=== PATIENT | female | born 1940 | race Caucasian/White ===

== ENCOUNTER 2018-06-16 09:45 | Outpatient (RCR) | payer MEDICARE, OTHER, SELFPAY ==
--- NOTE | 2018-04-30 15:38 | PT.OIE ---
Current Diagnoses Urgency of urination (04/30/18) Provider Visit Care Team Role Provider Type MUKUL Solis Attending Provider Advanced Hot Dip Plater Primary Care Provider Specialty: Family Practice Address: [address] [place] [address], [id number] Email: [email or web address] Physical Therapy Initial Evaluation PT-OP-A Visit Information Start: 04/30/18 14:52 Freq: Status: Active Protocol: Document 04/30/18 14:52 [facility] (Rec: 04/30/18 14:53 [facility] [email or web address]) Out-Patient Physical Therapy Visit Information Visit Information Visit Type Initial Evaluation Visit Note 77 year old female referred for urinary urge incontinence Visit Start Time 14:30 Visit Stop Time 15:15 Total Visit Minutes 45 Visit Number 1 Evaluation Information Evaluation Date 04/30/18 PT-OP-B Current Condition Start: 04/30/18 14:52 Freq: Status: Active Protocol: Document 04/30/18 15:26 [facility] (Rec: 04/30/18 15:38 [facility] [email or web address]) Current Condition History of Current Condition Onset Date 2 years Current Complaints urinary urge incontinence History of Current Condition 77 year old female with two year history of urinary urge intontinence. She has a past medical history of breast cancer 2006 with bilateral masectomy, thyroid surgery, lymphedema, neck pain, neuropathy Treatment Goals Patient/Caregiver Goals To eliminate urinary incontinence Current Functional Impairments (Reported) Functional Limitations- Other increased self care and skin breakdown due to urinary incontinence PT-OP-I Pelvic Floor Start: 04/30/18 14:52 Freq: Status: Active Protocol: Document 04/30/18 15:26 [facility] (Rec: 04/30/18 15:38 [facility] [email or web address]) Pelvic Floor Assessment Urine Pelvic Floor Surgery No Urinary Symptoms Urge Sensation Leakage Size Large Leakage Cause Urge Leaks Per Day 5 xms per day Voiding Frequency 10 times per day Nocturia 2 times per night Pelvic Clock Pelvic Clock 12-3 Atrophy Pelvic Clock 3-6 Atrophy Pelvic Clock 6-9 Atrophy Pelvic Clock 9-12 Atrophy SEMG (uV) Baseline 2.0 10 Second Contraction 4.3 Recruitment Pattern Fair Relaxation Fair Holding Fair Stability of Hold Poor/Slow SEMG Stability of Rest Fair Contraction Ability Voluntary Contraction Weak Voluntary Relaxation Weak Manual Muscle Testing Left 2 Manual Muscle Testing Right 2 Manual Muscle Testing Anterior 2 Manual Muscle Testing Posterior 2 Muscle Endurance (Seconds) 4 PT-OP-Q Treatments Start: 04/30/18 14:52 Freq: Status: Active Protocol: Document 04/30/18 15:26 [facility] (Rec: 04/30/18 15:38 [facility] [email or web address]) Therapeutic Exercises Supine Exercises 1 Supine Exercise Name pelvic floor long holds Side bilateral Reps/Minutes 10 reps holding 10 seconds Self-Care/Home Management Treatment Education Patient Education Home Exercise Program Other Education urge deference technique, bladder retraining PT-OP-T Assessment and Plan Start: 04/30/18 14:52 Freq: Status: Active Protocol: Document 04/30/18 15:26 [facility] (Rec: 04/30/18 15:38 [facility] [email or web address]) Physical Therapy Assessment Rehab Potential Rehabilitation Potential Good Evaluation Complexity Number of Personal Factors/Comorbidities 0 Number of Body Systems Impaired 1-2 Clinical Presentation at Evaluation Stable Impairments Impairments Activity Tolerance Strength Tone Other Impairments urinary incontinence Goals Three Impairment decreased endurance of the pelvic floor (currently 3-4 second hold time) Numerologist Goal (LTG) Improve endurance of the pelvic floor to 10 second hold time in supine Two Impairment urinary urge incontinence Short Term Goal (STG) Jamee is educated on the urge deference technique to help urinary urgency and decrease incontinence STG Duration 5 weeks One Impairment pelvic floor weakness 2/5 MMT all parts of the levator ani Numerologist Goal (LTG) Improve strength of the pelvic floor muscles to 3/5 or better on MMT for improved support of the bladder LTG Duration 8 weeks Assessment Summary Assessment Jamee presents to physical therapy today with signs and symptoms consistent with urinary urge incontinence. With examination today Jamee is able to facilitate all parts of her levator ani however she is weak 2/5 on MMT . She also has more difficulty recruiting the anterior and lateral moody of the levator ani. Her endurance for holding time of contractions is also limited to 2-3 seconds. She was given a bladder diary today to keep track of how often she voids, educated on bladder irritants, and we initiated the urge deference technique to help retrain her bladder. EMG biofeedback was initiated to begin strengthening of her pelvic floor and she tolerated this well. She is a good candidate for PT. Physical Therapy Plan Frequency and Duration Frequency of Treatment 1x/Week Duration of Treatment 8 weeks Plan of Care Start Date 04/30/18 Plan of Care End Date 06/25/18 Therapeutic Interventions Therapeutic Interventions Home Exercise Program Neuromuscular Re-education Patient/Caregiver Education Therapeutic Exercises Modalities Biofeedback
--- NOTE | 2018-04-30 15:39 | PT.OPPOC ---
Current Diagnoses Urgency of urination (04/30/18) Provider Visit Care Team Role Provider Type MUKUL Solis Attending Provider Advanced Mold Stamper Primary Care Provider Specialty: Family Practice Address: [address] [place] [address], [id number] Email: [email or web address] Plan Of Care PT-OP-T Assessment and Plan Start: 04/30/18 14:52 Freq: Status: Active Protocol: Document 04/30/18 15:26 [facility] (Rec: 04/30/18 15:38 [facility] [email or web address]) Physical Therapy Assessment Rehab Potential Rehabilitation Potential Good Evaluation Complexity Number of Personal Factors/Comorbidities 0 Number of Body Systems Impaired 1-2 Clinical Presentation at Evaluation Stable Impairments Impairments Activity Tolerance Strength Tone Other Impairments urinary incontinence Goals Three Impairment decreased endurance of the pelvic floor (currently 3-4 second hold time) Specimen Transporter Goal (LTG) Improve endurance of the pelvic floor to 10 second hold time in supine Two Impairment urinary urge incontinence Short Term Goal (STG) Jamee is educated on the urge deference technique to help urinary urgency and decrease incontinence STG Duration 5 weeks One Impairment pelvic floor weakness 2/5 MMT all parts of the levator ani Specimen Transporter Goal (LTG) Improve strength of the pelvic floor muscles to 3/5 or better on MMT for improved support of the bladder LTG Duration 8 weeks Assessment Summary Assessment Jamee presents to physical therapy today with signs and symptoms consistent with urinary urge incontinence. With examination today Jamee is able to facilitate all parts of her levator ani however she is weak 2/5 on MMT She also has more difficulty recruiting the anterior and lateral moody of the levator ani. Her endurance for holding time of contractions is also limited to 2-3 seconds. She was given a bladder diary today to keep track of how often she voids, educated on bladder irritants, and we initiated the urge deference technique to help retrain her bladder. EMG biofeedback was initiated to begin strengthening of her pelvic floor and she tolerated this well. She is a good candidate for PT. Physical Therapy Plan Frequency and Duration Frequency of Treatment 1x/Week Duration of Treatment 8 weeks Plan of Care Start Date 04/30/18 Plan of Care End Date 06/25/18 Therapeutic Interventions Therapeutic Interventions Home Exercise Program Neuromuscular Re-education Patient/Caregiver Education Therapeutic Exercises Modalities Biofeedback Plan of Care Dates Plan of Care Start Date 04/30/18 Plan of Care End Date 06/25/18 Please Sign and Return: I have reviewed this Plan of Care and certify that the skilled therapy services above are required to meet the patient?s needs. Physician Signature Date Printed Name and Credentials Clinical Instructor Signature Printed Name and Credentials
--- NOTE | 2018-05-07 11:49 | PT.OTN ---
Current Diagnoses Urgency of urination (05/07/18) Physical Therapy Treatment Note PT-OP-A Visit Information Start: 04/30/18 14:52 Freq: Status: Active Protocol: Document 05/07/18 11:32 [facility] (Rec: 05/07/18 11:49 [facility] [email or web address]) Out-Patient Physical Therapy Visit Information Visit Information Visit Type Treatment Note Visit Start Time 09:00 Visit Stop Time 09:45 Total Visit Minutes 45 Visit Number 2 Evaluation Information Evaluation Date 04/30/18 PT-OP-B Current Condition Start: 04/30/18 14:52 Freq: Status: Active Protocol: Document 04/30/18 15:26 [facility] (Rec: 04/30/18 15:38 [facility] [email or web address]) Current Condition History of Current Condition Onset Date 2 years Current Complaints urinary urge incontinence History of Current Condition 77 year old female with two year history of urinary urge intontinence. She has a past medical history of breast cancer 2006 with bilateral masectomy, thyroid surgery, lymphedema, neck pain, neuropathy Treatment Goals Patient/Caregiver Goals To eliminate urinary incontinence Current Functional Impairments (Reported) Functional Limitations- Other increased self care and skin breakdown due to urinary incontinence PT-OP-C Subjective Start: 04/30/18 14:52 Freq: Status: Active Protocol: Document 05/07/18 11:32 [facility] (Rec: 05/07/18 11:49 [facility] [email or web address]) OP-PT Subjective Patient Comments Patient Comments Jamee reports she has been trying the urge technique, working on her exercises, and she brings in her bladder diary. She reports she can tell her symptoms are a bit better already PT-OP-I Pelvic Floor Start: 04/30/18 14:52 Freq: Status: Active Protocol: Document 04/30/18 15:26 [facility] (Rec: 04/30/18 15:38 [facility] [email or web address]) Pelvic Floor Assessment Urine Pelvic Floor Surgery No Urinary Symptoms Urge Sensation Leakage Size Large Leakage Cause Urge Leaks Per Day 5 xms per day Voiding Frequency 10 times per day Nocturia 2 times per night Pelvic Clock Pelvic Clock 12-3 Atrophy Pelvic Clock 3-6 Atrophy Pelvic Clock 6-9 Atrophy Pelvic Clock 9-12 Atrophy SEMG (uV) Baseline 2.0 10 Second Contraction 4.3 Recruitment Pattern Fair Relaxation Fair Holding Fair Stability of Hold Poor/Slow SEMG Stability of Rest Fair Contraction Ability Voluntary Contraction Weak Voluntary Relaxation Weak Manual Muscle Testing Left 2 Manual Muscle Testing Right 2 Manual Muscle Testing Anterior 2 Manual Muscle Testing Posterior 2 Muscle Endurance (Seconds) 4 PT-OP-Q Treatments Start: 04/30/18 14:52 Freq: Status: Active Protocol: Document 05/07/18 11:32 [facility] (Rec: 05/07/18 11:49 [facility] [email or web address]) Therapeutic Exercises Supine Exercises 3 Supine Exercise Name diaphragmatic breathing 2 Supine Exercise Name ball squeeze with pelvic floor contraction Reps/Minutes x 10 1 Supine Exercise Name pelvic floor long holds Side bilateral Reps/Minutes 10 reps holding 10 seconds Prone Exercises 1 Prone Exercise Name prone on elbows stretch for the abdominal fascia Other Exercises 1 Other Exercise Name quadraped pelvic tilts Neuro Re-Education Treatment Other Activities 1 Details neuro muscular awareness of transverse abdominal and pelvic floor Comments worked on breathing with pelvic floor facilitation and neuromuscualr awareness of TA and pelvic floor tightnening on the exhale. PT-OP-T Assessment and Plan Start: 04/30/18 14:52 Freq: Status: Active Protocol: Document 05/07/18 11:32 [facility] (Rec: 05/07/18 11:49 [facility] [email or web address]) Physical Therapy Assessment Assessment Summary Assessment Improved resting tone of the pelvic floor to baseline today . Long holds are difficult for Jamee to perform. We worked a lot today on the breath with her pelvic floor contractions as it is difficult for her to coordinate her breath. Physical Therapy Plan Frequency and Duration Frequency of Treatment 1x/Week Duration of Treatment 8 weeks Plan of Care Start Date 04/30/18 Plan of Care End Date 06/25/18 Therapeutic Interventions Therapeutic Interventions Home Exercise Program Neuromuscular Re-education Patient/Caregiver Education Therapeutic Exercises Modalities Biofeedback Next Visit Focus/Plan Next Note Type Treatment Note Next Visit Plan EMG biofeedback pelvic floor facilitation and begin working eccentric control and lateral hip stabilization
--- NOTE | 2018-05-12 15:37 | PT.OTN ---
Current Diagnoses Urgency of urination (05/12/18) Physical Therapy Treatment Note PT-OP-A Visit Information Start: 04/30/18 14:52 Freq: Status: Active Protocol: Document 05/12/18 10:30 AMB (Rec: 05/12/18 10:40 AMB [id number]) Out-Patient Physical Therapy Visit Information Visit Information Visit Type Treatment Note Visit Start Time 10:30 Visit Stop Time 11:15 Total Visit Minutes 45 Visit Number 3 PT-OP-B Current Condition Start: 04/30/18 14:52 Freq: Status: Active Protocol: Document 04/30/18 15:26 [facility] (Rec: 04/30/18 15:38 [facility] [email or web address]) Current Condition History of Current Condition Onset Date 2 years Current Complaints urinary urge incontinence History of Current Condition 77 year old female with two year history of urinary urge intontinence. She has a past medical history of breast cancer 2006 with bilateral masectomy, thyroid surgery, lymphedema, neck pain, neuropathy Treatment Goals Patient/Caregiver Goals To eliminate urinary incontinence Current Functional Impairments (Reported) Functional Limitations- Other increased self care and skin breakdown due to urinary incontinence PT-OP-C Subjective Start: 04/30/18 14:52 Freq: Status: Active Protocol: Document 05/12/18 10:30 AMB (Rec: 05/12/18 15:37 AMB [email or web address]) OP-PT Subjective Patient Comments Patient Comments Pt reports one night without nocturia. PT-OP-I Pelvic Floor Start: 04/30/18 14:52 Freq: Status: Active Protocol: Document 04/30/18 15:26 [facility] (Rec: 04/30/18 15:38 [facility] [email or web address]) Pelvic Floor Assessment Urine Pelvic Floor Surgery No Urinary Symptoms Urge Sensation Leakage Size Large Leakage Cause Urge Leaks Per Day 5 xms per day Voiding Frequency 10 times per day Nocturia 2 times per night Pelvic Clock Pelvic Clock 12-3 Atrophy Pelvic Clock 3-6 Atrophy Pelvic Clock 6-9 Atrophy Pelvic Clock 9-12 Atrophy SEMG (uV) Baseline 2.0 10 Second Contraction 4.3 Recruitment Pattern Fair Relaxation Fair Holding Fair Stability of Hold Poor/Slow SEMG Stability of Rest Fair Contraction Ability Voluntary Contraction Weak Voluntary Relaxation Weak Manual Muscle Testing Left 2 Manual Muscle Testing Right 2 Manual Muscle Testing Anterior 2 Manual Muscle Testing Posterior 2 Muscle Endurance (Seconds) 4 PT-OP-Q Treatments Start: 04/30/18 14:52 Freq: Status: Active Protocol: Document 05/12/18 10:30 AMB (Rec: 05/12/18 15:32 AMB [email or web address]) Therapeutic Exercises Supine Exercises 5 Supine Exercise Name hip ER with pelvic floor Resistance #3 t band Reps/Minutes [id number] 2 Supine Exercise Name ball squeeze with pelvic floor contraction Reps/Minutes x 10 1 Supine Exercise Name pelvic floor long holds Side bilateral Reps/Minutes 10 reps holding 10 seconds Comments with slow controlled relax Neuro Re-Education Treatment Other Activities 1 Details neuro muscular awareness of transverse abdominal and pelvic floor Comments worked on breathing with pelvic floor facilitation and neuromuscualr awareness of TA and pelvic floor tightnening on the exhale. Breathing while holding contraction. PT-OP-T Assessment and Plan Start: 04/30/18 14:52 Freq: Status: Active Protocol: Document 05/12/18 10:30 AMB (Rec: 05/12/18 15:32 AMB [email or web address]) Physical Therapy Assessment Assessment Summary Assessment Urgency sx are improving, pt reports one night with no nocturia. 10 seconds hold remain challenging. Physical Therapy Plan Next Visit Focus/Plan Next Note Type Treatment Note Next Visit Plan EMG biofeedback pelvic floor facilitation and begin working eccentric control and lateral hip stabilization
--- NOTE | 2018-05-20 15:44 | PT.OTN ---
Current Diagnoses Urgency of urination (05/19/18) Physical Therapy Treatment Note PT-OP-A Visit Information Start: 04/30/18 14:52 Freq: Status: Active Protocol: Document 05/19/18 15:15 [facility] (Rec: 05/20/18 15:44 [facility] [id number]) Out-Patient Physical Therapy Visit Information Visit Information Visit Type Treatment Note Visit Start Time 15:15 Visit Stop Time 16:00 Total Visit Minutes 45 Visit Number 4 Evaluation Information Evaluation Date 04/30/18 PT-OP-B Current Condition Start: 04/30/18 14:52 Freq: Status: Active Protocol: Document 04/30/18 15:26 [facility] (Rec: 04/30/18 15:38 [facility] [email or web address]) Current Condition History of Current Condition Onset Date 2 years Current Complaints urinary urge incontinence History of Current Condition 77 year old female with two year history of urinary urge intontinence. She has a past medical history of breast cancer 2006 with bilateral masectomy, thyroid surgery, lymphedema, neck pain, neuropathy Treatment Goals Patient/Caregiver Goals To eliminate urinary incontinence Current Functional Impairments (Reported) Functional Limitations- Other increased self care and skin breakdown due to urinary incontinence PT-OP-C Subjective Start: 04/30/18 14:52 Freq: Status: Active Protocol: Document 05/19/18 15:15 [facility] (Rec: 05/20/18 15:44 [facility] [id number]) OP-PT Subjective Patient Comments Patient Comments Doing much better with symptoms and leakage is much decreased. She reports only waking one time per night to void and did go one night without waking. It is still difficult to hold the contraction 10 seconds PT-OP-I Pelvic Floor Start: 04/30/18 14:52 Freq: Status: Active Protocol: Document 04/30/18 15:26 [facility] (Rec: 04/30/18 15:38 [facility] [email or web address]) Pelvic Floor Assessment Urine Pelvic Floor Surgery No Urinary Symptoms Urge Sensation Leakage Size Large Leakage Cause Urge Leaks Per Day 5 xms per day Voiding Frequency 10 times per day Nocturia 2 times per night Pelvic Clock Pelvic Clock 12-3 Atrophy Pelvic Clock 3-6 Atrophy Pelvic Clock 6-9 Atrophy Pelvic Clock 9-12 Atrophy SEMG (uV) Baseline 2.0 10 Second Contraction 4.3 Recruitment Pattern Fair Relaxation Fair Holding Fair Stability of Hold Poor/Slow SEMG Stability of Rest Fair Contraction Ability Voluntary Contraction Weak Voluntary Relaxation Weak Manual Muscle Testing Left 2 Manual Muscle Testing Right 2 Manual Muscle Testing Anterior 2 Manual Muscle Testing Posterior 2 Muscle Endurance (Seconds) 4 PT-OP-Q Treatments Start: 04/30/18 14:52 Freq: Status: Active Protocol: Document 05/19/18 15:15 [facility] (Rec: 05/20/18 15:44 [facility] [id number]) Therapeutic Exercises Supine Exercises 5 Supine Exercise Name hip ER with pelvic floor Resistance #3 t band Reps/Minutes [id number] 3 Supine Exercise Name diaphragmatic breathing 2 Supine Exercise Name ball squeeze with pelvic floor contraction Reps/Minutes x 10 1 Supine Exercise Name pelvic floor long holds Side bilateral Reps/Minutes 10 reps holding 10 seconds Comments with slow controlled relax Other Exercises 2 Other Exercise Name quadruped TA facilitation 1 Other Exercise Name quadraped pelvic tilts Neuro Re-Education Treatment Other Activities 2 Details NMES Comments began NMES to help facilitate longer pelvic floor contractions 1 Details neuro muscular awareness of transverse abdominal and pelvic floor Comments worked on breathing with pelvic floor facilitation and neuromuscualr awareness of TA and pelvic floor tightnening on the exhale. Breathing while holding contraction. PT-OP-T Assessment and Plan Start: 04/30/18 14:52 Freq: Status: Active Protocol: Document 05/19/18 15:15 [facility] (Rec: 05/20/18 15:44 [facility] [id number]) Physical Therapy Assessment Assessment Summary Assessment good improvements with decreased urgency and leakage. It is still difficult to coordinate breathing with pelvic floor activation and holding for 10 seconds. I did try NMES today and this did help some so we will try this again next visit Physical Therapy Plan Frequency and Duration Frequency of Treatment 1x/Week Duration of Treatment 8 weeks Plan of Care Start Date 04/30/18 Plan of Care End Date 06/25/18 Therapeutic Interventions Therapeutic Interventions Home Exercise Program Neuromuscular Re-education Patient/Caregiver Education Therapeutic Exercises Modalities Biofeedback Next Visit Focus/Plan Next Note Type Treatment Note Next Visit Plan trial of NMES again next visit and progress strengthening as tolerated
--- NOTE | 2018-06-03 13:18 | PT.OTN ---
Current Diagnoses Urgency of urination (06/03/18) Physical Therapy Treatment Note PT-OP-A Visit Information Start: 04/30/18 14:52 Freq: Status: Active Protocol: Document 06/03/18 13:09 [facility] (Rec: 06/03/18 13:18 [facility] [email or web address]) Out-Patient Physical Therapy Visit Information Visit Information Visit Type Treatment Note Visit Start Time 12:15 Visit Stop Time 13:00 Total Visit Minutes 45 Visit Number 5 Evaluation Information Evaluation Date 04/30/18 PT-OP-B Current Condition Start: 04/30/18 14:52 Freq: Status: Active Protocol: Document 04/30/18 15:26 [facility] (Rec: 04/30/18 15:38 [facility] [email or web address]) Current Condition History of Current Condition Onset Date 2 years Current Complaints urinary urge incontinence History of Current Condition 77 year old female with two year history of urinary urge intontinence. She has a past medical history of breast cancer 2006 with bilateral masectomy, thyroid surgery, lymphedema, neck pain, neuropathy Treatment Goals Patient/Caregiver Goals To eliminate urinary incontinence Current Functional Impairments (Reported) Functional Limitations- Other increased self care and skin breakdown due to urinary incontinence PT-OP-C Subjective Start: 04/30/18 14:52 Freq: Status: Active Protocol: Document 06/03/18 13:09 [facility] (Rec: 06/03/18 13:18 [facility] [email or web address]) OP-PT Subjective Patient Comments Patient Comments Jamee reports leakage is decreased overall. She is not wearing any pads, She has a stronger stream and is sleeping about 6 hours before she has to get up to void. Jamee also reports she has not started her estrogen yet and she does have some skin irritation from the electrode Patient Reported Progress Improving PT-OP-I Pelvic Floor Start: 04/30/18 14:52 Freq: Status: Active Protocol: Document 04/30/18 15:26 [facility] (Rec: 04/30/18 15:38 [facility] [email or web address]) Pelvic Floor Assessment Urine Pelvic Floor Surgery No Urinary Symptoms Urge Sensation Leakage Size Large Leakage Cause Urge Leaks Per Day 5 xms per day Voiding Frequency 10 times per day Nocturia 2 times per night Pelvic Clock Pelvic Clock 12-3 Atrophy Pelvic Clock 3-6 Atrophy Pelvic Clock 6-9 Atrophy Pelvic Clock 9-12 Atrophy SEMG (uV) Baseline 2.0 10 Second Contraction 4.3 Recruitment Pattern Fair Relaxation Fair Holding Fair Stability of Hold Poor/Slow SEMG Stability of Rest Fair Contraction Ability Voluntary Contraction Weak Voluntary Relaxation Weak Manual Muscle Testing Left 2 Manual Muscle Testing Right 2 Manual Muscle Testing Anterior 2 Manual Muscle Testing Posterior 2 Muscle Endurance (Seconds) 4 PT-OP-Q Treatments Start: 04/30/18 14:52 Freq: Status: Active Protocol: Document 06/03/18 13:09 [facility] (Rec: 06/03/18 13:18 [facility] [email or web address]) Therapeutic Exercises Supine Exercises 6 Supine Exercise Name quick pelvic floor contractions Reps/Minutes 2 seconds on 2 seconds off x 10 reps 4 Supine Exercise Name bridge with ball squeeze Reps/Minutes x 10 reps 5 Supine Exercise Name hip ER with pelvic floor Resistance #3 t band Reps/Minutes [id number] Supine Exercise Name diaphragmatic breathing 2 Supine Exercise Name ball squeeze with pelvic floor contraction Reps/Minutes x 10 1 Supine Exercise Name pelvic floor long holds Side bilateral Reps/Minutes 10 reps holding 5 seconds Comments with slow controlled relax Sidelying Exercises 1 Sidelying Exercise Name sidelying clam shells Reps/Minutes 3 x 10 reps Other Exercises 2 Other Exercise Name quadruped TA facilitation 1 Other Exercise Name quadraped pelvic tilts PT-OP-T Assessment and Plan Start: 04/30/18 14:52 Freq: Status: Active Protocol: Document 06/03/18 13:09 [facility] (Rec: 06/03/18 13:18 [facility] [email or web address]) Physical Therapy Assessment Assessment Summary Assessment I tried lowering long holds to 5 seconds as holding for 10 is still difficult for Jamee. We then increased her ball squeeze to 10 seconds. Jamee is doing well with decreased symptoms. It would be good to progress her towards more functional exercises next visit Physical Therapy Plan Frequency and Duration Frequency of Treatment 1x/Week Duration of Treatment 8 weeks Plan of Care Start Date 04/30/18 Plan of Care End Date 06/25/18 Therapeutic Interventions Therapeutic Interventions Home Exercise Program Neuromuscular Re-education Patient/Caregiver Education Therapeutic Exercises Modalities Biofeedback Next Visit Focus/Plan Next Note Type Treatment Note Next Visit Plan progress to sit-stand and standing pelvic floor contractions next visit
--- NOTE | 2018-06-16 11:51 | PT.OTN ---
Current Diagnoses Urgency of urination (06/16/18) Physical Therapy Treatment Note PT-OP-A Visit Information Start: 04/30/18 14:52 Freq: Status: Active Protocol: Document 06/16/18 11:20 [facility] (Rec: 06/16/18 11:51 [facility] [email or web address]) Out-Patient Physical Therapy Visit Information Visit Information Visit Type Treatment Note Visit Start Time 09:45 Visit Stop Time 10:30 Total Visit Minutes 45 Visit Number 6 Evaluation Information Evaluation Date 04/30/18 PT-OP-B Current Condition Start: 04/30/18 14:52 Freq: Status: Active Protocol: Document 04/30/18 15:26 [facility] (Rec: 04/30/18 15:38 [facility] [email or web address]) Current Condition History of Current Condition Onset Date 2 years Current Complaints urinary urge incontinence History of Current Condition 77 year old female with two year history of urinary urge intontinence. She has a past medical history of breast cancer 2006 with bilateral masectomy, thyroid surgery, lymphedema, neck pain, neuropathy Treatment Goals Patient/Caregiver Goals To eliminate urinary incontinence Current Functional Impairments (Reported) Functional Limitations- Other increased self care and skin breakdown due to urinary incontinence PT-OP-C Subjective Start: 04/30/18 14:52 Freq: Status: Active Protocol: Document 06/16/18 11:20 [facility] (Rec: 06/16/18 11:51 [facility] [email or web address]) OP-PT Subjective Patient Comments Patient Comments Jamee reports she is doing much better overall. She hasn' t had any leakage and has been getting 8 hours of sleep at night not waking to void. Patient Reported Progress Improving PT-OP-I Pelvic Floor Start: 04/30/18 14:52 Freq: Status: Active Protocol: Document 04/30/18 15:26 [facility] (Rec: 04/30/18 15:38 [facility] [email or web address]) Pelvic Floor Assessment Urine Pelvic Floor Surgery No Urinary Symptoms Urge Sensation Leakage Size Large Leakage Cause Urge Leaks Per Day 5 xms per day Voiding Frequency 10 times per day Nocturia 2 times per night Pelvic Clock Pelvic Clock 12-3 Atrophy Pelvic Clock 3-6 Atrophy Pelvic Clock 6-9 Atrophy Pelvic Clock 9-12 Atrophy SEMG (uV) Baseline 2.0 10 Second Contraction 4.3 Recruitment Pattern Fair Relaxation Fair Holding Fair Stability of Hold Poor/Slow SEMG Stability of Rest Fair Contraction Ability Voluntary Contraction Weak Voluntary Relaxation Weak Manual Muscle Testing Left 2 Manual Muscle Testing Right 2 Manual Muscle Testing Anterior 2 Manual Muscle Testing Posterior 2 Muscle Endurance (Seconds) 4 PT-OP-Q Treatments Start: 04/30/18 14:52 Freq: Status: Active Protocol: Document 06/16/18 11:20 [facility] (Rec: 06/16/18 11:51 [facility] [email or web address]) Therapeutic Exercises Supine Exercises 4 Supine Exercise Name bridge with ball squeeze Reps/Minutes x 10 reps 2 Supine Exercise Name ball squeeze with pelvic floor contraction Reps/Minutes x 10 1 Supine Exercise Name pelvic floor long holds Side bilateral Reps/Minutes 10 reps holding 5 seconds Comments with slow controlled relax Sidelying Exercises 1 Sidelying Exercise Name sidelying clam shells Reps/Minutes 3 x 10 reps Sitting Exercises 1 Sitting Exercise Name sit to stand with pelvic floor activitation Reps/Minutes x 10 Standing Exercises 1 Standing Exercise Name standing quick contractions Reps/Minutes x 10 Other Exercises 3 Other Exercise Name standing squats at counter top Reps/Minutes x 10 2 Other Exercise Name quadruped TA facilitation 1 Other Exercise Name quadraped pelvic tilts PT-OP-T Assessment and Plan Start: 04/30/18 14:52 Freq: Status: Active Protocol: Document 06/16/18 11:20 [facility] (Rec: 06/16/18 11:51 [facility] [email or web address]) Physical Therapy Assessment Goals Three Impairment decreased endurance of the pelvic floor (currently 3-4 second hold time) Short Term Goal (STG) GOAL MET 06/16/18 Senior Director Finance Goal (LTG) Improve endurance of the pelvic floor to 10 second hold time in supine Two Impairment urinary urge incontinence Short Term Goal (STG) Jamee is educated on the urge deference technique to help urinary urgency and decrease incontinence STG Duration 5 weeks [facility] Goal (LTG) GOAL MET 06/16/18 One Impairment pelvic floor weakness 2/5 MMT all parts of the levator ani Short Term Goal (STG) GOAL MET 06/16/18 [employer] Goal (LTG) Improve strength of the pelvic floor muscles to 3/5 or better on MMT for improved support of the bladder LTG Duration 8 weeks Assessment Summary Assessment Jamee is doing realy well with her home program for pelvic floor strengthening. Her symptoms of leakage are gone and she is not waking at night to void. At this point she will be discharged to a independent home program. Physical Therapy Plan Discharge Physical Therapy Discharge Reasons Goals Met Discharge Comments Jamee has met all established goals and will be dishcarged at this time.
== END 2018-06-17 12:06 ==
LOC: PHYS 09:45
PROVIDERS: PCP Internal Medicine; Visit Provider Internal Medicine
DX: R39.15 Urgency of urination (principal)
CPT/HCPCS: 97110; 97112; 97161; 97535

== ENCOUNTER → 2018-12-17 13:47 | Outpatient (CLI) | payer MEDICARE, OTHER, SELFPAY ==
--- NOTE | 2018-12-17 | DI.MRI.S_ITS ---
PROCEDURE: MR KNEE LT WO CON INDICATIONS: Unspecified injury of left lower leg TECHNIQUE: Noncontrast sagittal PD fast spin echo and T2 fast spin echo with fat saturation, sagittal 3-D FLASH with fat saturation; coronal T1 spin echo and PD fast spin echo with fat saturation, and axial PD fast spin echo with fat saturation through the knee. COMPARISON: [facility] [place], [place], XR KNEE ARTHRITIC SERIES LT, 12/10/2018, 15:26. FINDINGS: Image quality: Excellent. Menisci: The medial and lateral menisci demonstrate normal morphology. There is mild intrasubstance degeneration involving the posterior horn of the medial meniscus and the free edge of the body of the lateral meniscus. The meniscal root ligaments appear intact. Cruciate ligaments: The anterior and posterior cruciate ligaments appear intact. Medial structures: The medial collateral ligament appears intact. The semimembranosus tendon insertions and meniscocapsular junction appear intact. Visualized portions of the pes anserinus tendons appear normal. No abnormal bursal fluid. Lateral structures: The lateral collateral ligament, long and short heads of the biceps femoris tendon appear intact. The popliteus tendon appears normal. Iliotibial band appears normal. Anterior structures: The quadriceps and patellar tendons appear intact. Patellar alignment is normal. No femoral trochlear dysplasia or ventral trochlear prominence. No edema in the infrapatellar fat pad. Bones and cartilage: No bone marrow contusions or fractures. There is cartilage thinning and fibrillation in the medial and lateral femorotibial compartments, as well as the patellofemoral compartment, appears normal in thickness. Joint space: There is joint space narrowing and periarticular osteophytes. There is small to moderate knee joint fluid. A moderate-sized Valencia's cyst is noted. Normal appearing synovial plicae are incidentally noted. IMPRESSION: 1. Mild intrasubstance degeneration in medial and lateral menisci. No lilly meniscal tear. 2. Mild to moderate tricompartmental cartilage loss, coupled with joint space narrowing and periarticular osteophytes, most compatible with osteoarthritis. 3. Small to moderate knee joint effusion. 4. A moderate-sized Valencia's cyst. Dictated by: Mingo Castellon M.D. on 12/17/2018 at 14:58 Approved by: Mingo Castellon M.D. on 12/17/2018 at 17:49
== END ==
PROVIDERS: PCP Internal Medicine; Visit Provider Internal Medicine
DX: S89.92XA Unspecified injury of left lower leg, initial encounter (principal); M25.462 Effusion, left knee; M71.22 Synovial cyst of popliteal space [Baker], left knee
CPT/HCPCS: 73721

== ENCOUNTER 2019-06-23 09:00 | Outpatient (RCR) | payer MEDICARE, OTHER, SELFPAY ==
--- NOTE | 2019-06-18 16:13 | PT.OIE ---
Current Diagnoses Patellofemoral disorders, left knee (06/18/19) Sprain of other ligament of left ankle, subsequent encounter (06/18/19) Personal history of (healed) traumatic fracture (06/18/19) Visit Care Team Role Provider Type MUKUL Solis Attending Provider Advanced Steerer Primary Care Provider Referring Provider Specialty: [facility] Practice Address: [address] [place] [address], [id number] Email: [email or web address] Physical Therapy Initial Evaluation PT-OP-A Visit Information Start: 06/18/19 09:47 Freq: Status: Active Protocol: Document 06/18/19 09:50 [facility] (Rec: 06/18/19 14:30 [facility] [email or web address]) Out-Patient Physical Therapy Visit Information Visit Information Visit Type Initial Evaluation Visit Note Patient showed up at 9:00 due to scheduling miscommunication Visit Start Time 09:50 Visit Stop Time 10:37 Total Visit Minutes 47 Visit Number 1 Number of CEMENT CUTTER Visits 0 Evaluation Information Evaluation Date 06/18/19 PT-OP-B Current Condition Start: 06/18/19 09:47 Freq: Status: Active Protocol: Document 06/18/19 09:50 [facility] (Rec: 06/18/19 14:30 [facility] [email or web address]) Current Condition History of Current Condition Onset Date December, Current Complaints Pain in L ankle after fracture , pain in L knee after fall History of Current Condition Patient reports that in December, she fell while walking in the lawn at a concert. At that time, she felt she had done something to her ankle but didn't see the MD in a couple days. She reported she had an avulsion fracture in her ankle ( documents in paper chart) and was given a walking boot to wear. At the time of the fall, she also had bruising and swelling of the L knee and was unable to bend for a few days . She says she felt a deep pain under the knee cap. She stopped wearing the boot once she thought it was more of a hindrance that it was helping (after 2 weeks). She enjoys hiking and going up altitude but has pain in L ankle and L knee when walking downhill. She reports increased stiffness in the morning as well as walking down stairs. At rest, she can feel a minimal pain in L ankle and does not feel pain in L knee. She has begun to wear high ankle boots while hiking to help with ankle pain. She has gone to PT in the past for her R knee and would prefer to do as much as she can at home. Patient has a history of Fibromyalgia which she reports healing herself through an extensive program called The [facility] Protocol which was developed by Roger Cheema MD. 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 Prior Treatments and Tests Walking boot for ankle PT in past for R knee Treatment Goals Patient/Caregiver Goals Would like to be given exercises to do at home to decrease pain Prior Functional Status Baseline Function- ADL's Independent Baseline Function- Mobility Independent Baseline Function- Work/School Retired Baseline Function- Recreation/Hobbies Altitude hiker Enjoys going in to [place] Current Functional Impairments (Reported) Functional Limitations- Mobility/Gait Difficulty with squatting, standing for >1 hour, standing from sitting down >1 hour Functional Limitations- Recreation/ Unable to go hiking without Hobbies pain Personal Factors Other Personal Factors That May Effect Arthritis Therapy/Recovery Back Pain History of Breast Cancer Lymphedema Neuropathy History of Fibromyalgia Neck pain Thyroid Disorder PT-OP-C Subjective Start: 06/18/19 09:47 Freq: Status: Active Protocol: Document 06/18/19 09:50 [facility] (Rec: 06/18/19 14:30 EG [email or web address]) Patient Questionnaires Foot & Ankle Ability Measure- ADL and Sports FAAM-ADL Score 76 FAAM-ADL Impairment 1 to 19% Impaired (Score 67-83 ) Lower Extremity Functional Scale LEFS Score 44 LEFS Impairment 40 to 59% Impaired (Score 32- 47) OP-PT Pain Assessment Pain Assessment Grid Paper Pain Assessment Grid Completed Yes: 3 in L Ankle PT-OP-G Mobility & Gait Start: 06/18/19 09:47 Freq: Status: Active Protocol: Document 06/18/19 09:50 [facility] (Rec: 06/18/19 14:30 EG [email or web address]) OP Mobility Evaluation Bed Mobility Rolling Independent Supine to and from Sit Independent PT-OP-J Posture/Palpation/Skin Start: 06/18/19 09:47 Freq: Status: Active Protocol: Document 06/18/19 09:50 [facility] (Rec: 06/18/19 14:30 EG [email or web address]) Palpation Assessment Location L Lateral Malleolus Palpation Location L lateral malleolus Palpation Findings Tenderness Palpation Details Inferior portion of L lateral malleolus tender PT-OP-K Range of Motion Start: 06/18/19 09:47 Freq: Status: Active Protocol: Document 06/18/19 09:50 EG (Rec: 06/18/19 14:30 EG [email or web address]) Knee Goniometric Range of Motion Knee Right Knee ROM WFL Yes Patient Position Supine Flexion Active (degrees) 125 Extension Active (degrees) 2 Left Knee ROM WFL Yes Patient Position Supine Flexion Active (degrees) 130 Extension Active (degrees) 2 Ankle and Foot Goniometric Range of Motion Ankle and Foot Right Active Ankle/Foot ROM WFL Yes Testing Position Sitting Dorsiflexion with Knee Flexed 0 Plantarflexion 50 Left Active Ankle/Foot ROM WFL Yes Testing Position Sitting Dorsiflexion with Knee Flexed 0 Plantarflexion 40 PT-OP-M Strength Start: 06/18/19 09:47 Freq: Status: Active Protocol: Document 06/18/19 09:50 EG (Rec: 06/18/19 14:30 EG [email or web address]) Hip Strength Hip Manual Muscle Testing Right Extension (S1) 3+ Fair+ Abduction 4- Good- Left Extension (S1) 3+ Fair+ Abduction 3+ Fair+ Knee Strength Knee Manual Muscle Testing Right Flexion (S2) 4 Good Extension (L3) 4 Good Comments Slight pain with R knee extension Left Flexion (S2) 4 Good Extension (L3) 4 Good Comments L knee Extension: strong and painful deep to knee cap Ankle/Foot Strength Ankle and Foot Manual Muscle Testing Right Dorsiflexion (L4) 4+ Good+ Plantarflexion (S1) 4+ Good+ Inversion 4+ Good+ Eversion (S1) 4+ Good+ Left Dorsiflexion (L4) 4 Good Plantarflexion (S1) 4 Good Inversion 4 Good Eversion (S1) 4 Good Comments Pain in lateral ankle with dorsiflexion and inversion 20 single leg heel raise with decreased heel height PT-OP-Q Treatments Start: 06/18/19 09:47 Freq: Status: Active Protocol: Document 06/18/19 09:50 [facility] (Rec: 06/18/19 14:30 EG [email or web address]) Therapeutic Exercises Supine Exercises 6 Supine Exercise Name Bridge Reps/Minutes 10x Comments Given as HEP - cue to squeeze glutes together 4 Supine Exercise Name SAQ Side left Reps/Minutes 15x each side Comments given as HEP Sidelying Exercises 1 Sidelying Exercise Name Clams Side bilateral Reps/Minutes 15x Comments given as HEP PT-OP-T Assessment and Plan Start: 06/18/19 09:47 Freq: Status: Active Protocol: Document 06/18/19 09:50 [facility] (Rec: 06/18/19 14:30 EG [email or web address]) Physical Therapy Assessment Rehab Potential Rehabilitation Potential Good Evaluation Complexity Number of Personal Factors/Comorbidities 3 or More Number of Body Systems Impaired 4 or More Clinical Presentation at Evaluation Stable Impairments Impairments Activity Tolerance,Balance, Functional Activities, Functional Mobility,Gait,Pain, ROM,Soft Tissue Mobility, Strength Other Concerns Barriers to Rehabilitation Patient concerned about coming due to Coronovirus Patient unsure if PT will help her Goals Four Impairment HEP [employer] Goal (LTG) Patient will be knowledgable of HEP with performormance of correct mechanics and form with exercises focused on overall hip strengthening and ankle stability in 6 weeks. LTG Duration 6 weeks Three Impairment Strength [employer] Goal (LTG) Patient will increase strength of hip abduction to 4+/5 in 6 weeks. LTG Duration 6 weeks Two Impairment Activity Tolerance Short Term Goal (STG) Patient will be able to stand for >1 hour in 3 weeks with no increase in ankle pain. STG Duration 3 weeks [employer] Goal (LTG) Patient will be able to go on >3 hour hike on uneven surfaces with 20% decline without feeling ankle pain >2/ 10 in 6 weeks. LTG Duration 6 weeks One Impairment LEFS score Long-Term Goal (LTG) Patient will report <19% impairment in LEFS in 6 weeks. LTG Duration 6 weeks Assessment Summary Assessment Patient is an otherwise healthy and active 78 year old female who reports to PT due to instability and pain in L ankle 6 months post L ankle avulsion fracture as well as L knee pain. Patient's main complaint is lingering pain in the ankle and walking downhill when hiking. Patient will benefit from ankle stabilization exercises, gait training, foot intrinsic strengthening, hip strengthening, as well as neuromuscular control during balance movements to help the patient return to hiking on uneven surfaces pain free and with stability. Physical Therapy Plan Frequency and Duration Frequency of Treatment 2x/Week Duration of Treatment 6 weeks Plan of Care Start Date 06/18/19 Plan of Care End Date 07/30/19 Therapeutic Interventions Therapeutic Interventions Balance Training,Gait Training ,Home Exercise Program,Joint Mobilizations,Manual Therapy, Neuromuscular Re-education, Patient/Caregiver Education, Self-Care/Home Management,Soft Tissue Mobilization,Taping, Therapeutic Activities, Therapeutic Exercises Modalities Cold Pack/Ice Massage,Electric Stimulation,Hot Packs, Ultrasound Next Visit Focus/Plan Next Note Type Treatment Note Next Visit Plan Assess HEP, Give ankle exercises, assess balance. IDelaney DPT, supervised all treatment performed by, and agreed with the plan of care, as performed by Zulema Ly, TRACIE.
--- NOTE | 2019-06-18 16:15 | PT.OPPOC ---
Physical, Occupational & Speech Therapy At [facility] Current Diagnoses Patellofemoral disorders, left knee (06/18/19) Sprain of other ligament of left ankle, subsequent encounter (06/18/19) Personal history of (healed) traumatic fracture (06/18/19) Visit Care Team Role Provider Type MUKUL Solis Attending Provider Advanced Plywood And Veneer Repairer Primary Care Provider Referring Provider Specialty: Family Practice Address: [address] [place] [address] [place], [address] Email: [email or web address] Plan Of Care PT-OP-T Assessment and Plan Start: 06/18/19 09:47 Freq: Status: Active Protocol: Document 06/18/19 09:50 EG (Rec: 06/18/19 14:30 EG [email or web address]) Physical Therapy Assessment Rehab Potential Rehabilitation Potential Good Evaluation Complexity Number of Personal Factors/Comorbidities 3 or More Number of Body Systems Impaired 4 or More Clinical Presentation at Evaluation Stable Impairments Impairments Activity Tolerance,Balance, Functional Activities, Functional Mobility,Gait,Pain, ROM,Soft Tissue Mobility, Strength Other Concerns Barriers to Rehabilitation Patient concerned about coming due to Coronovirus Patient unsure if PT will help her Goals Four Impairment HEP Software Quality Engineer Goal (LTG) Patient will be knowledgable of HEP with performormance of correct mechanics and form with exercises focused on overall hip strengthening and ankle stability in 6 weeks. LTG Duration 6 weeks Three Impairment Strength Software Quality Engineer Goal (LTG) Patient will increase strength of hip abduction to 4+/5 in 6 weeks. LTG Duration 6 weeks Two Impairment Activity Tolerance Short Term Goal (STG) Patient will be able to stand for >1 hour in 3 weeks with no increase in ankle pain. STG Duration 3 weeks Software Quality Engineer Goal (LTG) Patient will be able to go on >3 hour hike on uneven surfaces with 20% decline without feeling ankle pain >2/ 10 in 6 weeks. LTG Duration 6 weeks One Impairment LEFS score Penitentiary Goal (LTG) Patient will report <19% impairment in LEFS in 6 weeks. LTG Duration 6 weeks Assessment Summary Assessment Patient is an otherwise healthy and active 78 year old female who reports to PT due to instability and pain in L ankle 6 months post L ankle avulsion fracture as well as L knee pain. Patient's main complaint is lingering pain in the ankle and walking downhill when hiking. Patient will benefit from ankle stabilization exercises, gait training, foot intrinsic strengthening, hip strengthening, as well as neuromuscular control during balance movements to help the patient return to hiking on uneven surfaces pain free and with stability. Physical Therapy Plan Frequency and Duration Frequency of Treatment 2x/Week Duration of Treatment 6 weeks Plan of Care Start Date 06/18/19 Plan of Care End Date 07/30/19 Therapeutic Interventions Therapeutic Interventions Balance Training,Gait Training ,Home Exercise Program,Joint Mobilizations,Manual Therapy, Neuromuscular Re-education, Patient/Caregiver Education, Self-Care/Home Management,Soft Tissue Mobilization,Taping, Therapeutic Activities, Therapeutic Exercises Modalities Cold Pack/Ice Massage,Electric Stimulation,Hot Packs, Ultrasound Next Visit Focus/Plan Next Note Type Treatment Note Next Visit Plan Assess HEP, Give ankle exercises, assess balance. Plan of Care Dates Plan of Care Start Date 06/18/19 Plan of Care End Date 07/30/19 IDelaney DPT, supervised all treatment performed by, and agreed with the plan of care, as performed by Zulema Ly, TRACIE. Electronically Signed by: Delaney Mahoney, PT 06/18/19 3240 Please Sign and Return: I have reviewed this Plan of Care and certify that the skilled therapy services above are required to meet the patient?s needs. Physician Signature Date Printed Name and Credentials Clinical Instructor Signature Printed Name and Credentials
--- NOTE | 2019-06-21 09:43 | PT-OP ANOTE ---
Pt no showed appointment, called and left voicemail reminding of next scheduled appointment day and time.
--- NOTE | 2019-06-23 11:10 | PT.OTN ---
Current Diagnoses Patellofemoral disorders, left knee (06/23/19) Sprain of other ligament of left ankle, subsequent encounter (06/23/19) Personal history of (healed) traumatic fracture (06/23/19) Physical Therapy Treatment Note PT-OP-A Visit Information Start: 06/18/19 09:47 Freq: Status: Active Protocol: Document 06/23/19 09:07 EG (Rec: 06/23/19 10:58 EG [id number]) Out-Patient Physical Therapy Visit Information Visit Information Visit Type Discharge Summary Visit Start Time 09:07 Visit Stop Time 09:51 Total Visit Minutes 44 Visit Number 2 Number of THRESHING OPERATOR Visits 0 PT-OP-B Current Condition Start: 06/18/19 09:47 Freq: Status: Active Protocol: Document 06/18/19 09:50 EG (Rec: 06/18/19 14:30 EG [email or web address]) Current Condition History of Current Condition Onset Date December, Current Complaints Pain in L ankle after fracture , pain in L knee after fall History of Current Condition Patient reports that in December, she fell while walking in the lawn at a concert. At that time, she felt she had done something to her ankle but didn't see the MD in a couple days. She reported she had an avulsion fracture in her ankle ( documents in paper chart) and was given a walking boot to wear. At the time of the fall, she also had bruising and swelling of the L knee and was unable to bend for a few days . She says she felt a deep pain under the knee cap. She stopped wearing the boot once she thought it was more of a hindrance that it was helping (after 2 weeks). She enjoys hiking and going up altitude but has pain in L ankle and L knee when walking downhill. She reports increased stiffness in the morning as well as walking down stairs. At rest, she can feel a minimal pain in L ankle and does not feel pain in L knee. She has begun to wear high ankle boots while hiking to help with ankle pain. She has gone to PT in the past for her R knee and would prefer to do as much as she can at home. Patient has a history of Fibromyalgia which she reports healing herself through an extensive program called The Guaifenesin Protocol which was developed by Roger Cheema MD. 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 Prior Treatments and Tests Walking boot for ankle PT in past for R knee Treatment Goals Patient/Caregiver Goals Would like to be given exercises to do at home to decrease pain Prior Functional Status Baseline Function- ADL's Independent Baseline Function- Mobility Independent Baseline Function- Work/School Retired Baseline Function- Recreation/Hobbies Altitude hiker Enjoys going in to [place] Current Functional Impairments (Reported) Functional Limitations- Mobility/Gait Difficulty with squatting, standing for >1 hour, standing from sitting down >1 hour Functional Limitations- Recreation/ Unable to go hiking without Hobbies pain Personal Factors Other Personal Factors That May Effect Arthritis Therapy/Recovery Back Pain History of Breast Cancer Lymphedema Neuropathy History of Fibromyalgia Neck pain Thyroid Disorder PT-OP-C Subjective Start: 06/18/19 09:47 Freq: Status: Active Protocol: Document 06/23/19 09:07 EG (Rec: 06/23/19 10:58 EG [id number]) OP-PT Subjective Patient Comments Patient Comments Patient reports that she feels her ankle was surprisingly feeling better after last appointment but she would like this to be her last appointment because of the coronavirus. Her knee was not bothering her but she also has not done any downhill walking since then. She would like exercises to do at home. PT-OP-G Mobility & Gait Start: 06/18/19 09:47 Freq: Status: Active Protocol: Document 06/18/19 09:50 EG (Rec: 06/18/19 14:30 EG [email or web address]) OP Mobility Evaluation Bed Mobility Rolling Independent Supine to and from Sit Independent PT-OP-J Posture/Palpation/Skin Start: 06/18/19 09:47 Freq: Status: Active Protocol: Document 06/18/19 09:50 EG (Rec: 06/18/19 14:30 EG [email or web address]) Palpation Assessment Location L Lateral Malleolus Palpation Location L lateral malleolus Palpation Findings Tenderness Palpation Details Inferior portion of L lateral malleolus tender PT-OP-K Range of Motion Start: 06/18/19 09:47 Freq: Status: Active Protocol: Document 06/18/19 09:50 EG (Rec: 06/18/19 14:30 EG [email or web address]) Knee Goniometric Range of Motion Knee Right Knee ROM WFL Yes Patient Position Supine Flexion Active (degrees) 125 Extension Active (degrees) 2 Left Knee ROM WFL Yes Patient Position Supine Flexion Active (degrees) 130 Extension Active (degrees) 2 Ankle and Foot Goniometric Range of Motion Ankle and Foot Right Active Ankle/Foot ROM WFL Yes Testing Position Sitting Dorsiflexion with Knee Flexed 0 Plantarflexion 50 Left Active Ankle/Foot ROM WFL Yes Testing Position Sitting Dorsiflexion with Knee Flexed 0 Plantarflexion 40 PT-OP-M Strength Start: 06/18/19 09:47 Freq: Status: Active Protocol: Document 06/18/19 09:50 EG (Rec: 06/18/19 14:30 EG [email or web address]) Hip Strength Hip Manual Muscle Testing Right Extension (S1) 3+ Fair+ Abduction 4- Good- Left Extension (S1) 3+ Fair+ Abduction 3+ Fair+ Knee Strength Knee Manual Muscle Testing Right Flexion (S2) 4 Good Extension (L3) 4 Good Comments Slight pain with R knee extension Left Flexion (S2) 4 Good Extension (L3) 4 Good Comments L knee Extension: strong and painful deep to knee cap Ankle/Foot Strength Ankle and Foot Manual Muscle Testing Right Dorsiflexion (L4) 4+ Good+ Plantarflexion (S1) 4+ Good+ Inversion 4+ Good+ Eversion (S1) 4+ Good+ Left Dorsiflexion (L4) 4 Good Plantarflexion (S1) 4 Good Inversion 4 Good Eversion (S1) 4 Good Comments Pain in lateral ankle with dorsiflexion and inversion 20 single leg heel raise with decreased heel height PT-OP-Q Treatments Start: 06/18/19 09:47 Freq: Status: Active Protocol: Document 06/23/19 09:07 EG (Rec: 06/23/19 10:58 EG [id number]) Cardio Equipment Recumbent Elliptical (Biodex) Duration (Minutes) 5 Resistance 5 Therapeutic Exercises Sitting Exercises Towel Scrunch Sitting Exercise Name Towel Scrunch Side left Reps/Minutes 2 min Comments given for HEP 4-way ankle TB Sitting Exercise Name TB 4-way ankle Side left Resistance L2 Reps/Minutes 10x each way Comments given as HEP 1 Sitting Exercise Name Ankle ABC's Side left Comments HEP Standing Exercises Heel Raise Standing Exercise Name Heel Raise Side bilateral Reps/Minutes 10x Comments done on and off stairs - slightly more tension felt in ankle with stairs gastroc.Soleuys stretch Standing Exercise Name gastroc/soleus stretch Side bilateral Equipment Used MAIKEL Reps/Minutes 1 min hold Comments given for HEP - taught to do on stairs SLS on foam pad Standing Exercise Name SLS on foam pad Side left Equipment Used foam pad Reps/Minutes 1 min each side Comments given as HEP - used wall rail for support Balance on RockerBoard Standing Exercise Name Balance on Rocker Board Equipment Used rocker board in A/P and L positions Reps/Minutes 1 min Comments done EO and EC - given as HEP 1 Standing Exercise Name Rocker Board Side bilateral Reps/Minutes 10x A/P and 10x L Comments given as HEP PT-OP-T Assessment and Plan Start: 06/18/19 09:47 Freq: Status: Active Protocol: Document 06/23/19 09:07 EG (Rec: 06/23/19 10:58 EG [id number]) Physical Therapy Assessment Goals Four Impairment HEP Senior Talent Management Consultant Goal (LTG) Patient will be knowledgable of HEP with performormance of correct mechanics and form with exercises focused on overall hip strengthening and ankle stability in 6 weeks. LTG Duration MET Three Impairment Strength Senior Talent Management Consultant Goal (LTG) Patient will increase strength of hip abduction to 4+/5 in 6 weeks. LTG Duration 6 weeks Two Impairment Activity Tolerance Short Term Goal (STG) Patient will be able to stand for >1 hour in 3 weeks with no increase in ankle pain. STG Duration 3 weeks Senior Talent Management Consultant Goal (LTG) Patient will be able to go on >3 hour hike on uneven surfaces with 20% decline without feeling ankle pain >2/ 10 in 6 weeks. LTG Duration 6 weeks One Impairment LEFS score Correction Goal (LTG) Patient will report <19% impairment in LEFS in 6 weeks. LTG Duration 6 weeks Progress Towards Goals Progress Towards Goals Progressing Toward Goals Progress Comments Patient was able to learn HEP that will help with ankle mobility/stability. Strength has not improved due to short duration. patient has not been hiking, She has chosen to discharge due to the recent Coronavirus spread, Assessment Summary Assessment Patient has chosen to self- discharge at this time because she does not want to come to the hospital during the coronavirus. She was given a HEP for her ankle to work on ankle stability, mobility, and strength as well as foot intrinsic strength while at home. Mechanics and form for each exercise was discussed and performed. All questions were answered. Patient may call in a few months to continue with therapy if she does not see the improvement she wants in the next few months. Physical Therapy Plan Frequency and Duration Frequency of Treatment 2x/Week Duration of Treatment 6 weeks Plan of Care Start Date 06/18/19 Plan of Care End Date 07/30/19 Discharge Physical Therapy Discharge Reasons Patient Request Discharge Comments Patient would like to discharge because of the recent coronavirus spread. IDelaney DPT, supervised all treatment performed by, and agreed with the plan of care, as performed by Zulema Ly, TRACIE.
== END 2019-06-24 08:03 ==
LOC: PHYS 09:00
PROVIDERS: PCP Internal Medicine; Referring Provider Internal Medicine; Visit Provider Internal Medicine
DX: Z87.81 Personal history of (healed) traumatic fracture (principal); M22.2X2 Patellofemoral disorders, left knee; S93.492D Sprain of other ligament of left ankle, subsequent encounter
CPT/HCPCS: 97110; 97161

== ENCOUNTER → 2020-07-11 14:29 | Outpatient (CLI) | payer MEDICARE, SELFPAY ==
[2020-07-11 15:57] LABS: Cholesterol 192 mg/dL (140-199); HDL Cholesterol 54 mg/dL (40-60); LDL Cholesterol Calculated 99 mg/dL (<100); Triglycerides 195 mg/dL (35-150)
[2020-07-11 16:41] LABS: Free T3, Triiodothyronine Free 4.47 pg/mL (2.77-5.27); Free T4, Direct Thyroxine 1.34 ng/dL (0.78-2.19)
[2020-07-11 16:55] LABS: Thyroid Stimulating Hormone 0.953 uIU/mL (0.47-4.68)
== END ==
PROVIDERS: PCP Internal Medicine; Referring Provider Internal Medicine Endocrinology, Diabetes & Metabolism; Visit Provider Internal Medicine Endocrinology, Diabetes & Metabolism
DX: E03.8 Other specified hypothyroidism (principal); E78.5 Hyperlipidemia, unspecified
CPT/HCPCS: 36415; 80061; 84439; 84443; 84481

== ENCOUNTER 2021-03-22 09:00 | Outpatient (RCR) | payer MEDICARE, SELFPAY ==
--- NOTE | 2021-01-24 09:04 | PT.OPPOC ---
Physical, Occupational & Speech Therapy At [facility] Current Diagnoses Dorsalgia, unspecified (01/24/21) Abnormal posture (01/24/21) Weakness (01/24/21) Visit Care Team Role Provider Type MUKUL Solis Attending Provider Advanced Environmental Protection Forester Primary Care Provider Referring Provider Specialty: Family Practice Address: [address] [place] [address], [place], [place], [facility] Email: Plan Of Care PT-OP-T Assessment and Plan Start: 01/24/21 08:05 Freq: Status: Active Protocol: Document 01/24/21 09:04 ADRIANA (Rec: 01/24/21 10:23 ADRIANA [id number]) Physical Therapy Assessment Rehab Potential Rehabilitation Potential Good Evaluation Complexity Number of Personal Factors/Comorbidities 1-2 Number of Body Systems Impaired 3 Clinical Presentation at Evaluation Evolving Impairments Impairments Functional Mobility,Pain, Posture,Strength Goals unable to do floor transfers Impairment unable to do floor transfers Fpc Goal (LTG) Patient will be able to do floor transfers without pain independently as measure of improved function LTG Duration 04/24/21 function-limiting pain Impairment Oswestry disability Index SCore 32% Short Term Goal (STG) Improve RAVINDER score to no greater than 20% STG Duration 03/14/21 Fpc Goal (LTG) Improve RAVINDER score to no greater than 10% as measure of improved activity tolerance and function in the home and community LTG Duration 04/24/21 weakness Impairment no HEP to address weakness, muscle tightness, poor core stab Short Term Goal (STG) Patient to be independent and compliant with HEP for purposes of strength, flexibility, and core stabilization STG Duration 02/22/21 Sharepoint Manager Goal (LTG) Patient to demonstrate muscle strength at least 4+/5, flexibility WNL, and good ability to activate core at rest and functionally with movement for improved activity tolerance LTG Duration 04/24/21 functional mobility Impairment step-to pattern on stairs, painful gait Sharepoint Manager Goal (LTG) Patient will be able to ambulate on stairs with step- to pattern and take usual walks without an increase in pain LTG Duration 04/24/20 Assessment Summary Assessment Patient presents to PT with function-limiting pain in low back and left LE which appears due to muscle imbalances, habitual postures and movements, scoliosis, and arthritis in addition to recent move with increased lifting. Feel she would benefit from PT for establishing therapeutic exercise program, therapeutic activities, patient education regarding posture and body mechanics, modalities and manual therapy as indicated for pain. Physical Therapy Plan Frequency and Duration Frequency of Treatment 2x/Week Duration of Treatment 12 weeks Plan of Care Start Date 01/24/21 Plan of Care End Date 04/24/21 Therapeutic Interventions Therapeutic Interventions Aquatic Therapy,Home Exercise Program,Manual Therapy, Neuromuscular Re-education, Patient/Caregiver Education, Self-Care/Home Management,Soft Tissue Mobilization,Taping, Therapeutic Activities, Therapeutic Exercises Modalities Cold Pack/Ice Massage,Electric Stimulation,Hot Packs, Iontophoresis,Ultrasound Next Visit Focus/Plan Next Note Type Treatment Note Next Visit Plan Review HEP, patient instruction regarding neutral posture and body mechanics, progress HEP as indicated. Manual therapy and modalities as needed. Plan of Care Dates Plan of Care Start Date 01/24/21 Plan of Care End Date 04/24/21 Electronically Signed by: Cari Lopez, PT 01/28/21 0855 Please Sign and Return: I have reviewed this Plan of Care and certify that the skilled therapy services above are required to meet the patient?s needs. Physician Signature Date Printed Name and Credentials Clinical Instructor Signature Printed Name and Credentials
--- NOTE | 2021-01-24 09:04 | PT.OIE ---
Current Diagnoses Dorsalgia, unspecified (01/24/21) Abnormal posture (01/24/21) Weakness (01/24/21) Visit Care Team Role Provider Type MUKUL Solis Attending Provider Advanced Site Technician Primary Care Provider Referring Provider Specialty: Family Practice Address: [address] [place] [address], [facility] [place], [address] Email: [email or web address] Physical Therapy Initial Evaluation PT-OP-A Visit Information Start: 01/24/21 08:05 Freq: Status: Active Protocol: Document 01/24/21 09:04 SAK (Rec: 01/24/21 10:23 SAK [id number]) Out-Patient Physical Therapy Visit Information Visit Information Visit Type Initial Evaluation Visit Start Time 09:05 Visit Stop Time 10:00 Total Visit Minutes 55 Visit Number 1 Evaluation Information Evaluation Date 01/24/21 Precautions Precautions history of bilateral mastectomies, bilateral UE and trunk lymphedema PT-OP-B Current Condition Start: 01/24/21 08:05 Freq: Status: Active Protocol: Document 01/24/21 09:04 SAK (Rec: 01/24/21 10:23 SAK [id number]) Current Condition History of Current Condition Onset Date 6 wks Current Complaints low back and posterior left sided pain, weakness History of Current Condition Long history of sciatica 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 No pain since then until 6 weeks ago. Going to chiropractor, ( Makenna Steele) increased pain after treatment; has been adjusting mid thoracic area. . Occasionally takes Advil, uses CBD or Lidocane patch, but wearing SI belt most helpful. Usually for exercise 1-2 miles with hills. Better with sitting. Moved into a new house end of October, probably lifted way too many thing. New floor is polished concrete. Plans to get new shoes with a lot of cushion. New couch for TV room supports in leaning back position after move. Has adjustable bed, sleeps with head and legs elevated. Doesn't sleep with pillow between knees. Hasn't been able to go up stairs alternating feet and having difficulty getting off the floor. Doesn't do any stretching. Has been doing massage therapy, Rolfing, may be hurting? Left LE doesn't feel strong. Prior Treatments and Tests 2015 MRI: mild arthritis hip and spine Future Testing and Treatments Planned return to MD if PT not helpful Treatment Goals Patient/Caregiver Goals decrease pain, improve strength and activity tolerance, establish exercise program. Prior Functional Status Baseline Function- ADL's Independent Baseline Function- Mobility Independent Baseline Function- Gait independent Baseline Function- Work/School retired Baseline Function- Recreation/Hobbies walking, gardening without difficulty Current Functional Impairments (Reported) Functional Limitations- ADL's painful Functional Limitations- Mobility/Gait painful, unable to get off floor or alternate feet on stairs Functional Limitations- Recreation/ painful Hobbies Personal Factors Other Personal Factors That May Effect PMH: fibromyalgia took Therapy/Recovery Guafesine, bilateral mastectomies. Scoliosis PT-OP-G Mobility & Gait Start: 01/24/21 08:05 Freq: Status: Active Protocol: Document 01/24/21 09:04 [facility] (Rec: 01/28/21 08:54 [facility] [id number]) OP Gait Assessment Gait Gait Assistance Required: Independent Gait Deviations General Gait Pattern Flexed Trunk,Lateral Trunk Lean Factors Limiting Gait Function Factors Limiting Gait Function Pain Stair Climbing Evaluation Evaluation Level of Assist On Stairs Independent Technique/Endurance Stair Climbing Technique Step to Step PT-OP-H Neuro Start: 01/24/21 08:05 Freq: Status: Active Protocol: Document 01/24/21 09:04 [facility] (Rec: 01/28/21 08:54 [facility] [id number]) Sensation Evaluation Gross Sensation Gross Sensation WNL PT-OP-J Posture/Palpation/Skin Start: 01/24/21 08:05 Freq: Status: Active Protocol: Document 01/24/21 09:04 [facility] (Rec: 01/28/21 08:54 [facility] [id number]) Posture Evaluation Position Standing Head/C-Spine Posture Forward Head T-Spine Posture Increased Kyphosis Thorax Posture (R) Prominent L-Spine Posture Increased Lordosis,Shifted Left Shoulder Posture (L) Rounded,(R) Rounded Scapula Posture (L) Protracted,(R) Protracted Pelvis Posture (L) Iliac Crest Superior Weight Distribution Weight Shifted Right Palpation Assessment Location thoracolumbar parspinals Palpation Findings Soft Tissue Tightness,Muscle Guarding,Tenderness PT-OP-K Range of Motion Start: 01/24/21 08:05 Freq: Status: Active Protocol: Document 01/24/21 09:04 [facility] (Rec: 01/28/21 08:54 [facility] [id number]) Lumbar Spine Range of Motion Lumbar Spine Active Testing Position Standing Flexion 45 Extension 15 Rotation Left 20 Rotation Right 20 Lateral Flexion Left 30 Lateral Flexion Right 25 Hip Goniometric Range of Motion Hip Right Straight Leg Raise 45 Left Straight Leg Raise 50 Hip ROM Limitations Hip ROM Limitations Soft Tissue Tightness PT-OP-L Special Tests Start: 01/24/21 08:05 Freq: Status: Active Protocol: Document 01/24/21 09:04 [facility] (Rec: 01/28/21 08:54 [facility] [id number]) Special Tests Lumbar Spine Special Tests Adin Test Results hip flexor tightness Straight Leg Raise Test Results negative Comments hamstring tightness PT-OP-M Strength Start: 01/24/21 08:05 Freq: Status: Active Protocol: Document 01/24/21 09:04 [facility] (Rec: 01/28/21 08:54 [facility] [id number]) Hip Strength Hip Manual Muscle Testing silvana Flexion (L2) 4 Good Extension (S1) 4- Good- Abduction 4- Good- Adduction 4 Good External Rotation 4- Good- Internal Rotation 4- Good- PT-OP-Q Treatments Start: 01/24/21 08:05 Freq: Status: Active Protocol: Document 01/24/21 09:04 [facility] (Rec: 01/28/21 08:54 [facility] [id number]) Self-Care/Home Management Treatment Education Patient Education Home Exercise Program,Pain Management,Posture PT-OP-R Modalities Start: 01/24/21 08:05 Freq: Status: Active Protocol: Document 01/24/21 09:04 [facility] (Rec: 01/24/21 10:23 [facility] [id number]) Hot Pack/Cold Pack Treatment Cold Pack Location silvana l/s and SI Patient Position Hooklying Treatment Duration (minutes) 10 Patient Tolerance Good PT-OP-T Assessment and Plan Start: 01/24/21 08:05 Freq: Status: Active Protocol: Document 01/24/21 09:04 [facility] (Rec: 01/24/21 10:23 [facility] [id number]) Physical Therapy Assessment Rehab Potential Rehabilitation Potential Good Evaluation Complexity Number of Personal Factors/Comorbidities 1-2 Number of Body Systems Impaired 3 Clinical Presentation at Evaluation Evolving Impairments Impairments Functional Mobility,Pain, Posture,Strength Goals unable to do floor transfers Impairment unable to do floor transfers Marketing Project Specialist Goal (LTG) Patient will be able to do floor transfers without pain independently as measure of improved function LTG Duration 04/24/21 function-limiting pain Impairment Oswestry disability Index SCore 32% Short Term Goal (STG) Improve RAVINDER score to no greater than 20% STG Duration 03/14/21 Marketing Project Specialist Goal (LTG) Improve RAVINDER score to no greater than 10% as measure of improved activity tolerance and function in the home and community LTG Duration 04/24/21 weakness Impairment no HEP to address weakness, muscle tightness, poor core stab Short Term Goal (STG) Patient to be independent and compliant with HEP for purposes of strength, flexibility, and core stabilization STG Duration 02/22/21 [facility] Goal (LTG) Patient to demonstrate muscle strength at least 4+/5, flexibility WNL, and good ability to activate core at rest and functionally with movement for improved activity tolerance LTG Duration 04/24/21 functional mobility Impairment step-to pattern on stairs, painful gait [facility] Goal (LTG) Patient will be able to ambulate on stairs with step- to pattern and take usual walks without an increase in pain LTG Duration 04/24/20 Assessment Summary Assessment Patient presents to PT with function-limiting pain in low back and left LE which appears due to muscle imbalances, habitual postures and movements, scoliosis, and arthritis in addition to recent move with increased lifting. Feel she would benefit from PT for establishing therapeutic exercise program, therapeutic activities, patient education regarding posture and body mechanics, modalities and manual therapy as indicated for pain. Physical Therapy Plan Frequency and Duration Frequency of Treatment 2x/Week Duration of Treatment 12 weeks Plan of Care Start Date 01/24/21 Plan of Care End Date 04/24/21 Therapeutic Interventions Therapeutic Interventions Aquatic Therapy,Home Exercise Program,Manual Therapy, Neuromuscular Re-education, Patient/Caregiver Education, Self-Care/Home Management,Soft Tissue Mobilization,Taping, Therapeutic Activities, Therapeutic Exercises Modalities Cold Pack/Ice Massage,Electric Stimulation,Hot Packs, Iontophoresis,Ultrasound Next Visit Focus/Plan Next Note Type Treatment Note Next Visit Plan Review HEP, patient instruction regarding neutral posture and body mechanics, progress HEP as indicated. Manual therapy and modalities as needed.
--- NOTE | 2021-02-01 17:16 | PT.OTN ---
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 No pain since then until 6 weeks ago. Going to chiropractor, ( Makenna Steele) increased pain after treatment; has been adjusting mid thoracic area. . Occasionally takes Advil, uses CBD or Lidocane patch, but wearing SI belt most helpful. Usually for exercise 1-2 miles with hills. Better with sitting. Moved into a new house end of October, probably lifted way too many thing. New floor is polished concrete. Plans to get new shoes with a lot of cushion. New couch for TV room supports in leaning back position after move. Has adjustable bed, sleeps with head and legs elevated. Doesn't sleep with pillow between knees. Hasn't been able to go up stairs alternating feet and having difficulty getting off the floor. Doesn't do any stretching. Has been doing massage therapy, Rolfing, may be hurting? Left LE doesn't feel strong. Prior Treatments and Tests 2015 MRI: mild arthritis hip and spine Future Testing and Treatments Planned return to MD if PT not helpful Prior Functional Status Baseline Function- ADL's Independent Baseline Function- Mobility Independent Baseline Function- Gait independent Baseline Function- Work/School retired Baseline Function- Recreation/Hobbies walking, gardening without difficulty Current Functional Impairments (Reported) Functional Limitations- ADL's painful Functional Limitations- Mobility/Gait painful, unable to get off floor or alternate feet on stairs Functional Limitations- Recreation/ painful Hobbies PT-OP-C Subjective Start: 01/24/21 08:05 Freq: Status: Active Protocol: Document 02/01/21 09:01 SAK (Rec: 02/01/21 17:15 SAK [id number]) OP-PT Subjective Patient Comments Patient Comments No new c/o, trying not to overdo with gardening; 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 Compliant to HEP of initial core stab ex. PT-OP-G Mobility & Gait Start: 01/24/21 08:05 Freq: Status: Active Protocol: Document 01/24/21 09:04 SAK (Rec: 01/28/21 08:54 [facility] [id number]) OP Gait Assessment Gait Gait Assistance Required: Independent Gait Deviations General Gait Pattern Flexed Trunk,Lateral Trunk Lean Factors Limiting Gait Function Factors Limiting Gait Function Pain Stair Climbing Evaluation Evaluation Level of Assist On Stairs Independent Technique/Endurance Stair Climbing Technique Step to Step PT-OP-H Neuro Start: 01/24/21 08:05 Freq: Status: Active Protocol: Document 01/24/21 09:04 [facility]AK (Rec: 01/28/21 08:54 [facility] [id number]) Sensation Evaluation Gross Sensation Gross Sensation WNL PT-OP-J Posture/Palpation/Skin Start: 01/24/21 08:05 Freq: Status: Active Protocol: Document 01/24/21 09:04 [facility]AK (Rec: 01/28/21 08:54 [facility] [id number]) Posture Evaluation Position Standing Head/C-Spine Posture Forward Head T-Spine Posture Increased Kyphosis Thorax Posture (R) Prominent L-Spine Posture Increased Lordosis,Shifted Left Shoulder Posture (L) Rounded,(R) Rounded Scapula Posture (L) Protracted,(R) Protracted Pelvis Posture (L) Iliac Crest Superior Weight Distribution Weight Shifted Right Palpation Assessment Location thoracolumbar parspinals Palpation Findings Soft Tissue Tightness,Muscle Guarding,Tenderness PT-OP-K Range of Motion Start: 01/24/21 08:05 Freq: Status: Active Protocol: Document 01/24/21 09:04 [facility]AK (Rec: 01/28/21 08:54 [facility] [id number]) Lumbar Spine Range of Motion Lumbar Spine Active Testing Position Standing Flexion 45 Extension 15 Rotation Left 20 Rotation Right 20 Lateral Flexion Left 30 Lateral Flexion Right 25 Hip Goniometric Range of Motion Hip Right Straight Leg Raise 45 Left Straight Leg Raise 50 Hip ROM Limitations Hip ROM Limitations Soft Tissue Tightness PT-OP-L Special Tests Start: 01/24/21 08:05 Freq: Status: Active Protocol: Document 01/24/21 09:04 [facility] (Rec: 01/28/21 08:54 [facility] [id number]) Special Tests Lumbar Spine Special Tests Adin Test Results hip flexor tightness Straight Leg Raise Test Results negative Comments hamstring tightness PT-OP-M Strength Start: 01/24/21 08:05 Freq: Status: Active Protocol: Document 01/24/21 09:04 SAK (Rec: 01/28/21 08:54 [facility] [id number]) Hip Strength Hip Manual Muscle Testing silvana Flexion (L2) 4 Good Extension (S1) 4- Good- Abduction 4- Good- Adduction 4 Good External Rotation 4- Good- Internal Rotation 4- Good- PT-OP-Q Treatments Start: 01/24/21 08:05 Freq: Status: Active Protocol: Document 02/01/21 09:01 [facility] (Rec: 02/01/21 09:54 [facility] [id number]) Cardio Equipment Recumbent Stepper (Sci-Fit) Duration (Minutes) 8 Resistance 1 Other .81 miles Gym Equipment Shuttle Recovery Bilateral Squats Resistance 50, 62 Reps/Time 10x2 Therapeutic Exercises Supine Exercises hamstring Supine Exercise Name stretch Reps/Minutes 2x30 SKTC Reps/Minutes 2x30 pillow squeeze Reps/Minutes 10x hip ab/ER Equipment Used L2 TB Reps/Minutes 10x kegel Reps/Minutes 10x Standing Exercises wall posture Reps/Minutes 5' gluteal activation with walking Reps/Minutes 4x PT-OP-R Modalities Start: 01/24/21 08:05 Freq: Status: Active Protocol: Document 02/01/21 09:01 [facility] (Rec: 02/01/21 09:54 [facility] [id number]) Hot Pack/Cold Pack Treatment Cold Pack Location silvana l/s and SI Patient Position Hooklying Treatment Duration (minutes) 10 Patient Tolerance Good PT-OP-T Assessment and Plan Start: 01/24/21 08:05 Freq: Status: Active Protocol: Document 02/01/21 09:01 [facility] (Rec: 02/01/21 09:54 [facility] [id number]) Physical Therapy Assessment Goals unable to do floor transfers Impairment unable to do floor transfers [facility] Goal (LTG) Patient will be able to do floor transfers without pain independently as measure of improved function LTG Duration 04/24/21 function-limiting pain Impairment Oswestry disability Index SCore 32% Short Term Goal (STG) Improve RAVINDER score to no greater than 20% STG Duration 03/14/21 Turf Farm Worker Goal (LTG) Improve RAVINDER score to no greater than 10% as measure of improved activity tolerance and function in the home and community LTG Duration 04/24/21 weakness Impairment no HEP to address weakness, muscle tightness, poor core stab Short Term Goal (STG) Patient to be independent and compliant with HEP for purposes of strength, flexibility, and core stabilization STG Duration 02/22/21 Turf Farm Worker Goal (LTG) Patient to demonstrate muscle strength at least 4+/5, flexibility WNL, and good ability to activate core at rest and functionally with movement for improved activity tolerance LTG Duration 04/24/21 functional mobility Impairment step-to pattern on stairs, painful gait [facility] Goal (LTG) Patient will be able to ambulate on stairs with step- to pattern and take usual walks without an increase in pain LTG Duration 04/24/20 Assessment Summary Assessment Patient needed moderate cues for correct performance of ther ex, demonstrated good understanding of neutral posture but has difficult attaining. Making good decisions to modify activities including delegating more physical gardening tasks to employee. Upgraded HEP today with written program. Physical Therapy Plan Frequency and Duration Frequency of Treatment 2x/Week Duration of Treatment 12 weeks Plan of Care Start Date 01/24/21 Plan of Care End Date 04/24/21 Therapeutic Interventions Therapeutic Interventions Aquatic Therapy,Home Exercise Program,Manual Therapy, Neuromuscular Re-education, Patient/Caregiver Education, Self-Care/Home Management,Soft Tissue Mobilization,Taping, Therapeutic Activities, Therapeutic Exercises Modalities Cold Pack/Ice Massage,Electric Stimulation,Hot Packs, Iontophoresis,Ultrasound Next Visit Focus/Plan Next Note Type Treatment Note Next Visit Plan Review new home exercises, progress with postural correction, core stabilization and strengthening, flexibility.
--- NOTE | 2021-02-08 16:57 | PT.OTN ---
Current Diagnoses Dorsalgia, unspecified (02/08/21) Abnormal posture (02/08/21) Weakness (02/08/21) Physical Therapy Treatment Note PT-OP-A Visit Information Start: 01/24/21 08:05 Freq: Status: Active Protocol: Document 02/08/21 11:22 ADRIANA (Rec: 02/08/21 12:07 [facility] [id number]) Out-Patient Physical Therapy Visit Information Visit Information Visit Type Treatment Note Visit Start Time 11:15 Visit Stop Time 09:59 Total Visit Minutes 59 Visit Number 3 Evaluation Information Evaluation Date 01/24/21 Precautions Precautions history of bilateral mastectomies, bilateral UE and trunk lymphedema PT-OP-B Current Condition Start: 01/24/21 08:05 Freq: Status: Active Protocol: Document 02/08/21 11:22 SAK (Rec: 02/08/21 12:07 [facility] [id number]) Current Condition History of Current Condition Onset Date 6 wks Current Complaints low back and posterior left sided pain, weakness History of Current Condition Long history of sciatica 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 No pain since then until 6 weeks ago. Going to chiropractor, ( Makenna Steele) increased pain after treatment; has been adjusting mid thoracic area. . Occasionally takes Advil, uses CBD or Lidocane patch, but wearing SI belt most helpful. Usually for exercise 1-2 miles with hills. Better with sitting. Moved into a new house end of October, probably lifted way too many thing. New floor is polished concrete. Plans to get new shoes with a lot of cushion. New couch for TV room supports in leaning back position after move. Has adjustable bed, sleeps with head and legs elevated. Doesn't sleep with pillow between knees. Hasn't been able to go up stairs alternating feet and having difficulty getting off the floor. Doesn't do any stretching. Has been doing massage therapy, Rolfing, may be hurting? Left LE doesn't feel strong. Prior Treatments and Tests 2015 MRI: mild arthritis hip and spine Future Testing and Treatments Planned return to MD if PT not helpful Treatment Goals Patient/Caregiver Goals decrease pain, improve strength and activity tolerance, establish exercise program. Prior Functional Status Baseline Function- ADL's Independent Baseline Function- Mobility Independent Baseline Function- Gait independent Baseline Function- Work/School retired Baseline Function- Recreation/Hobbies walking, gardening without difficulty Current Functional Impairments (Reported) Functional Limitations- ADL's painful Functional Limitations- Mobility/Gait painful, unable to get off floor or alternate feet on stairs Functional Limitations- Recreation/ painful Hobbies Personal Factors Other Personal Factors That May Effect PMH: fibromyalgia took Therapy/Recovery Guafesine, bilateral mastectomies. Scoliosis PT-OP-C Subjective Start: 01/24/21 08:05 Freq: Status: Active Protocol: Document 02/08/21 11:22 [facility] (Rec: 02/08/21 12:07 [facility] [id number]) OP-PT Subjective Patient Comments Patient Comments Pain 06/21, walking hurting the most. I feel like I'm listing to the side, wondering about leg length. Cancelled her chiropractor treatment because it was increasing her pain. PT-OP-G Mobility & Gait Start: 01/24/21 08:05 Freq: Status: Active Protocol: Document 01/24/21 09:04 [facility] (Rec: 01/28/21 08:54 [facility] [id number]) OP Gait Assessment Gait Gait Assistance Required: Independent Gait Deviations General Gait Pattern Flexed Trunk,Lateral Trunk Lean Factors Limiting Gait Function Factors Limiting Gait Function Pain Stair Climbing Evaluation Evaluation Level of Assist On Stairs Independent Technique/Endurance Stair Climbing Technique Step to Step PT-OP-H Neuro Start: 01/24/21 08:05 Freq: Status: Active Protocol: Document 01/24/21 09:04 [facility] (Rec: 01/28/21 08:54 [facility] [id number]) Sensation Evaluation Gross Sensation Gross Sensation WNL PT-OP-J Posture/Palpation/Skin Start: 01/24/21 08:05 Freq: Status: Active Protocol: Document 01/24/21 09:04 [facility] (Rec: 01/28/21 08:54 [facility] [id number]) Posture Evaluation Position Standing Head/C-Spine Posture Forward Head T-Spine Posture Increased Kyphosis Thorax Posture (R) Prominent L-Spine Posture Increased Lordosis,Shifted Left Shoulder Posture (L) Rounded,(R) Rounded Scapula Posture (L) Protracted,(R) Protracted Pelvis Posture (L) Iliac Crest Superior Weight Distribution Weight Shifted Right Palpation Assessment Location thoracolumbar parspinals Palpation Findings Soft Tissue Tightness,Muscle Guarding,Tenderness PT-OP-K Range of Motion Start: 01/24/21 08:05 Freq: Status: Active Protocol: Document 01/24/21 09:04 [facility] (Rec: 01/28/21 08:54 [facility] [id number]) Lumbar Spine Range of Motion Lumbar Spine Active Testing Position Standing Flexion 45 Extension 15 Rotation Left 20 Rotation Right 20 Lateral Flexion Left 30 Lateral Flexion Right 25 Hip Goniometric Range of Motion Hip Right Straight Leg Raise 45 Left Straight Leg Raise 50 Hip ROM Limitations Hip ROM Limitations Soft Tissue Tightness PT-OP-L Special Tests Start: 01/24/21 08:05 Freq: Status: Active Protocol: Document 01/24/21 09:04 [facility] (Rec: 01/28/21 08:54 [facility] [id number]) Special Tests Lumbar Spine Special Tests Adin Test Results hip flexor tightness Straight Leg Raise Test Results negative Comments hamstring tightness PT-OP-M Strength Start: 01/24/21 08:05 Freq: Status: Active Protocol: Document 01/24/21 09:04 [facility] (Rec: 01/28/21 08:54 [facility] [id number]) Hip Strength Hip Manual Muscle Testing silvana Flexion (L2) 4 Good Extension (S1) 4- Good- Abduction 4- Good- Adduction 4 Good External Rotation 4- Good- Internal Rotation 4- Good- PT-OP-Q Treatments Start: 01/24/21 08:05 Freq: Status: Active Protocol: Document 02/08/21 11:22 [facility] (Rec: 02/08/21 12:07 [facility] [id number]) Cardio Equipment Recumbent Stepper (Sci-Fit) Duration (Minutes) 8 Resistance 1.5 Other .9 miles Therapeutic Exercises Supine Exercises pelvic realignment exercises Reps/Minutes 5x ea Therapeutic Activity Therapeutic Activity functional gluteal activation Name in standing, with walking level and stairs, Reps/Minutes 8 min Comments demonstration, verbal and manual cues cued for core stabilization with standing and walking with patient reporting decrease in pain. Manual Therapy Treatment Soft Tissue Mobilization piriformis Mobilization Type Myofascial Release,Sustained Pressure,Trigger Point Release Comments pillow between legs Self-Care/Home Management Treatment Education Patient Education Home Exercise Program,Pain Management,Posture Other Education updated HEP PT-OP-R Modalities Start: 01/24/21 08:05 Freq: Status: Active Protocol: Document 02/08/21 11:22 [facility] (Rec: 02/08/21 16:57 [facility] [id number]) Hot Pack/Cold Pack Treatment Hot Pack Location piriformis, lateral hip Patient Position Sidelying Treatment Duration (minutes) 15 Patient Tolerance Good PT-OP-T Assessment and Plan Start: 01/24/21 08:05 Freq: Status: Active Protocol: Document 02/08/21 11:22 [facility] (Rec: 02/08/21 12:07 [facility] [id number]) Physical Therapy Assessment Goals unable to do floor transfers Impairment unable to do floor transfers Halfway Goal (LTG) Patient will be able to do floor transfers without pain independently as measure of improved function LTG Duration 04/24/21 function-limiting pain Impairment Oswestry disability Index SCore 32% Short Term Goal (STG) Improve RAVINDER score to no greater than 20% STG Duration 03/14/21 Halfway Goal (LTG) Improve RAVINDER score to no greater than 10% as measure of improved activity tolerance and function in the home and community LTG Duration 04/24/21 weakness Impairment no HEP to address weakness, muscle tightness, poor core stab Short Term Goal (STG) Patient to be independent and compliant with HEP for purposes of strength, flexibility, and core stabilization STG Duration 02/22/21 Radiotelegraph Operator Goal (LTG) Patient to demonstrate muscle strength at least 4+/5, flexibility WNL, and good ability to activate core at rest and functionally with movement for improved activity tolerance LTG Duration 04/24/21 functional mobility Impairment step-to pattern on stairs, painful gait Halfway Goal (LTG) Patient will be able to ambulate on stairs with step- to pattern and take usual walks without an increase in pain LTG Duration 04/24/20 Assessment Summary Assessment Patient leg length equal but instructed in pelvic realignment exercises today. Instructed in functional activation of gluteals with standing and with gait, with patient demonstrating difficulty correctly sequencing with gait; will try with sport cord next session. Palpable trigger points in left piriformis, decreased with manual treatment. Physical Therapy Plan Frequency and Duration Frequency of Treatment 2x/Week Duration of Treatment 12 weeks Plan of Care Start Date 01/24/21 Plan of Care End Date 04/24/21 Therapeutic Interventions Therapeutic Interventions Aquatic Therapy,Home Exercise Program,Manual Therapy, Neuromuscular Re-education, Patient/Caregiver Education, Self-Care/Home Management,Soft Tissue Mobilization,Taping, Therapeutic Activities, Therapeutic Exercises Modalities Cold Pack/Ice Massage,Electric Stimulation,Hot Packs, Iontophoresis,Ultrasound Next Visit Focus/Plan Next Note Type Treatment Note Next Visit Plan Add sport cord with emphasis on core strengthening, gluteal activation. Review HEP, modify as indicated. Assess response to manual treatment today.
--- NOTE | 2021-02-13 14:23 | PT.OTN ---
Current Diagnoses Dorsalgia, unspecified (02/13/21) Abnormal posture (02/13/21) Weakness (02/13/21) Physical Therapy Treatment Note PT-OP-A Visit Information Start: 01/24/21 08:05 Freq: Status: Active Protocol: Document 02/13/21 09:47 [facility] (Rec: 02/13/21 14:09 [facility] [id number]) Out-Patient Physical Therapy Visit Information Visit Information Visit Type Treatment Note Visit Start Time 09:02 Visit Stop Time 09:47 Total Visit Minutes 45 Visit Number 4 PT-OP-B Current Condition Start: 01/24/21 08:05 Freq: Status: Active Protocol: Document 02/08/21 11:22 [facility] (Rec: 02/08/21 12:07 [facility] [id number]) Current Condition History of Current Condition Onset Date 6 wks Current Complaints low back and posterior left sided pain, weakness History of Current Condition Long history of sciatica since right after chemotherapy, had again did PT in [place] 2015. No pain since then until 6 weeks ago. Going to chiropractor, ( Makenna Steele) increased pain after treatment; has been adjusting mid thoracic area. . Occasionally takes Advil, uses CBD or Lidocane patch, but wearing SI belt most helpful. Usually for exercise 1-2 miles with hills. Better with sitting. Moved into a new house end of October, probably lifted way too many thing. New floor is polished concrete. Plans to get new shoes with a lot of cushion. New couch for TV room supports in leaning back position after move. Has adjustable bed, sleeps with head and legs elevated. Doesn't sleep with pillow between knees. Hasn't been able to go up stairs alternating feet and having difficulty getting off the floor. Doesn't do any stretching. Has been doing massage therapy, Rolfing, may be hurting? Left LE doesn't feel strong. Prior Treatments and Tests 2015 MRI: mild arthritis hip and spine Future Testing and Treatments Planned return to MD if PT not helpful Treatment Goals Patient/Caregiver Goals decrease pain, improve strength and activity tolerance, establish exercise program. Prior Functional Status Baseline Function- ADL's Independent Baseline Function- Mobility Independent Baseline Function- Gait independent Baseline Function- Work/School retired Baseline Function- Recreation/Hobbies walking, gardening without difficulty Current Functional Impairments (Reported) Functional Limitations- ADL's painful Functional Limitations- Mobility/Gait painful, unable to get off floor or alternate feet on stairs Functional Limitations- Recreation/ painful Hobbies Personal Factors Other Personal Factors That May Effect PMH: fibromyalgia took Therapy/Recovery Guafesine, bilateral mastectomies. Scoliosis PT-OP-C Subjective Start: 01/24/21 08:05 Freq: Status: Active Protocol: Document 02/13/21 09:47 [facility] (Rec: 02/13/21 14:09 [facility] [id number]) OP-PT Subjective Patient Comments Patient Comments Jamee reports walking is doing better, she has been working on her stretches and these are really helping, morning is the hardest and when she experiences the most discomfort. PT-OP-G Mobility & Gait Start: 01/24/21 08:05 Freq: Status: Active Protocol: Document 01/24/21 09:04 [facility] (Rec: 01/28/21 08:54 [facility] [id number]) OP Gait Assessment Gait Gait Assistance Required: Independent Gait Deviations General Gait Pattern Flexed Trunk,Lateral Trunk Lean Factors Limiting Gait Function Factors Limiting Gait Function Pain Stair Climbing Evaluation Evaluation Level of Assist On Stairs Independent Technique/Endurance Stair Climbing Technique Step to Step PT-OP-H Neuro Start: 01/24/21 08:05 Freq: Status: Active Protocol: Document 01/24/21 09:04 [facility] (Rec: 01/28/21 08:54 [facility] [id number]) Sensation Evaluation Gross Sensation Gross Sensation WNL PT-OP-J Posture/Palpation/Skin Start: 01/24/21 08:05 Freq: Status: Active Protocol: Document 01/24/21 09:04 [facility] (Rec: 01/28/21 08:54 [facility] [id number]) Posture Evaluation Position Standing Head/C-Spine Posture Forward Head T-Spine Posture Increased Kyphosis Thorax Posture (R) Prominent L-Spine Posture Increased Lordosis,Shifted Left Shoulder Posture (L) Rounded,(R) Rounded Scapula Posture (L) Protracted,(R) Protracted Pelvis Posture (L) Iliac Crest Superior Weight Distribution Weight Shifted Right Palpation Assessment Location thoracolumbar parspinals Palpation Findings Soft Tissue Tightness,Muscle Guarding,Tenderness PT-OP-K Range of Motion Start: 01/24/21 08:05 Freq: Status: Active Protocol: Document 01/24/21 09:04 [facility] (Rec: 01/28/21 08:54 [facility] [id number]) Lumbar Spine Range of Motion Lumbar Spine Active Testing Position Standing Flexion 45 Extension 15 Rotation Left 20 Rotation Right 20 Lateral Flexion Left 30 Lateral Flexion Right 25 Hip Goniometric Range of Motion Hip Right Straight Leg Raise 45 Left Straight Leg Raise 50 Hip ROM Limitations Hip ROM Limitations Soft Tissue Tightness PT-OP-L Special Tests Start: 01/24/21 08:05 Freq: Status: Active Protocol: Document 01/24/21 09:04 [facility] (Rec: 01/28/21 08:54 [facility] [id number]) Special Tests Lumbar Spine Special Tests Adin Test Results hip flexor tightness Straight Leg Raise Test Results negative Comments hamstring tightness PT-OP-M Strength Start: 01/24/21 08:05 Freq: Status: Active Protocol: Document 01/24/21 09:04 [facility] (Rec: 01/28/21 08:54 [facility] [id number]) Hip Strength Hip Manual Muscle Testing silvana Flexion (L2) 4 Good Extension (S1) 4- Good- Abduction 4- Good- Adduction 4 Good External Rotation 4- Good- Internal Rotation 4- Good- PT-OP-Q Treatments Start: 01/24/21 08:05 Freq: Status: Active Protocol: Document 02/13/21 09:47 [facility] (Rec: 02/13/21 14:19 [facility] [id number]) Therapeutic Exercises Supine Exercises TA with marching Reps/Minutes 2 x 10 reps bridges with pelvic floor and TA recruitment Reps/Minutes x 10 hamstring Supine Exercise Name stretch Reps/Minutes 2x30 SKTC Reps/Minutes 2x30 Other Exercises cat cow Reps/Minutes x 10 reps julian pose Reps/Minutes x 60 seconds Manual Therapy Treatment Soft Tissue Mobilization piriformis Body Position Prone Comments tried body pillow with pt for prone position and she tolerated well Manual Techniques MET left anterior innominant rotation Body Position Hooklying Reps/Duration x 5 reps Self-Care/Home Management Treatment Education Patient Education Home Exercise Program,Pain Management,Posture Other Education pt was educated on how to use the miracle balls to self release her piriformis PT-OP-R Modalities Start: 01/24/21 08:05 Freq: Status: Active Protocol: Document 02/08/21 11:22 [facility] (Rec: 02/08/21 16:57 [facility] [id number]) Hot Pack/Cold Pack Treatment Hot Pack Location piriformis, lateral hip Patient Position Sidelying Treatment Duration (minutes) 15 Patient Tolerance Good PT-OP-T Assessment and Plan Start: 01/24/21 08:05 Freq: Status: Active Protocol: Document 02/13/21 09:47 [facility] (Rec: 02/13/21 14:09 [facility] [id number]) Physical Therapy Assessment Assessment Summary Assessment pt was shifted in her leg length today with left leg longer. Trial of MET with good correction. Worked on SI stabilization today and added in TA with paolo yanez, cat cow and julian pose to decompress the SI joint Physical Therapy Plan Frequency and Duration Frequency of Treatment 2x/Week Duration of Treatment 12 weeks Plan of Care Start Date 01/24/21 Plan of Care End Date 04/24/21 Therapeutic Interventions Therapeutic Interventions Aquatic Therapy,Home Exercise Program,Manual Therapy, Neuromuscular Re-education, Patient/Caregiver Education, Self-Care/Home Management,Soft Tissue Mobilization,Taping, Therapeutic Activities, Therapeutic Exercises Modalities Cold Pack/Ice Massage,Electric Stimulation,Hot Packs, Iontophoresis,Ultrasound Next Visit Focus/Plan Next Note Type Treatment Note Next Visit Plan emphasis on core strengthening , gluteal activation. Review HEP, modify as indicated. Assess response to self release with miracle balls at home
--- NOTE | 2021-02-20 16:33 | PT.OTN ---
Current Diagnoses Dorsalgia, unspecified (02/20/21) Abnormal posture (02/20/21) Weakness (02/20/21) Physical Therapy Treatment Note PT-OP-A Visit Information Start: 01/24/21 08:05 Freq: Status: Active Protocol: Document 02/20/21 09:03 [facility] (Rec: 02/20/21 09:48 [facility] [id number]) Out-Patient Physical Therapy Visit Information Visit Information Visit Type Treatment Note Visit Start Time 09:03 Visit Stop Time 09:48 Total Visit Minutes 45 Visit Number 5 PT-OP-B Current Condition Start: 01/24/21 08:05 Freq: Status: Active Protocol: Document 02/08/21 11:22 [facility]AK (Rec: 02/08/21 12:07 [facility] [id number]) Current Condition History of Current Condition Onset Date 6 wks Current Complaints low back and posterior left sided pain, weakness History of Current Condition Long history of sciatica since right after chemotherapy, had again did PT in [place] 2015. No pain since then until 6 weeks ago. Going to chiropractor, ( Makenna Steele) increased pain after treatment; has been adjusting mid thoracic area. . Occasionally takes Advil, uses CBD or Lidocane patch, but wearing SI belt most helpful. Usually for exercise 1-2 miles with hills. Better with sitting. Moved into a new house end of October, probably lifted way too many thing. New floor is polished concrete. Plans to get new shoes with a lot of cushion. New couch for TV room supports in leaning back position after move. Has adjustable bed, sleeps with head and legs elevated. Doesn't sleep with pillow between knees. Hasn't been able to go up stairs alternating feet and having difficulty getting off the floor. Doesn't do any stretching. Has been doing massage therapy, Rolfing, may be hurting? Left LE doesn't feel strong. Prior Treatments and Tests 2015 MRI: mild arthritis hip and spine Future Testing and Treatments Planned return to MD if PT not helpful Treatment Goals Patient/Caregiver Goals decrease pain, improve strength and activity tolerance, establish exercise program. Prior Functional Status Baseline Function- ADL's Independent Baseline Function- Mobility Independent Baseline Function- Gait independent Baseline Function- Work/School retired Baseline Function- Recreation/Hobbies walking, gardening without difficulty Current Functional Impairments (Reported) Functional Limitations- ADL's painful Functional Limitations- Mobility/Gait painful, unable to get off floor or alternate feet on stairs Functional Limitations- Recreation/ painful Hobbies Personal Factors Other Personal Factors That May Effect PMH: fibromyalgia took Therapy/Recovery Guafesine, bilateral mastectomies. Scoliosis PT-OP-C Subjective Start: 01/24/21 08:05 Freq: Status: Active Protocol: Document 02/20/21 09:03 SAK (Rec: 02/20/21 09:48 [facility]AK [id number]) OP-PT Subjective Patient Comments Patient Comments Was ok until got out of her car; states car the worst. Has been doing her exercises because they make her feel better. Having a large flare from lymphedema likely due to getting a sauna for home use, has had to go back to use of compression bra. Was able to do some shoveling yesterday but less mid back pain noted. Got calf stretching device back from her daughter and has started using. PT-OP-G Mobility & Gait Start: 01/24/21 08:05 Freq: Status: Active Protocol: Document 01/24/21 09:04 [facility] (Rec: 01/28/21 08:54 [facility] [id number]) OP Gait Assessment Gait Gait Assistance Required: Independent Gait Deviations General Gait Pattern Flexed Trunk,Lateral Trunk Lean Factors Limiting Gait Function Factors Limiting Gait Function Pain Stair Climbing Evaluation Evaluation Level of Assist On Stairs Independent Technique/Endurance Stair Climbing Technique Step to Step PT-OP-H Neuro Start: 01/24/21 08:05 Freq: Status: Active Protocol: Document 01/24/21 09:04 [facility] (Rec: 01/28/21 08:54 [facility] [id number]) Sensation Evaluation Gross Sensation Gross Sensation WNL PT-OP-J Posture/Palpation/Skin Start: 01/24/21 08:05 Freq: Status: Active Protocol: Document 01/24/21 09:04 [facility] (Rec: 01/28/21 08:54 [facility] [id number]) Posture Evaluation Position Standing Head/C-Spine Posture Forward Head T-Spine Posture Increased Kyphosis Thorax Posture (R) Prominent L-Spine Posture Increased Lordosis,Shifted Left Shoulder Posture (L) Rounded,(R) Rounded Scapula Posture (L) Protracted,(R) Protracted Pelvis Posture (L) Iliac Crest Superior Weight Distribution Weight Shifted Right Palpation Assessment Location thoracolumbar parspinals Palpation Findings Soft Tissue Tightness,Muscle Guarding,Tenderness PT-OP-K Range of Motion Start: 01/24/21 08:05 Freq: Status: Active Protocol: Document 01/24/21 09:04 [facility] (Rec: 01/28/21 08:54 [facility] [id number]) Lumbar Spine Range of Motion Lumbar Spine Active Testing Position Standing Flexion 45 Extension 15 Rotation Left 20 Rotation Right 20 Lateral Flexion Left 30 Lateral Flexion Right 25 Hip Goniometric Range of Motion Hip Right Straight Leg Raise 45 Left Straight Leg Raise 50 Hip ROM Limitations Hip ROM Limitations Soft Tissue Tightness PT-OP-L Special Tests Start: 01/24/21 08:05 Freq: Status: Active Protocol: Document 01/24/21 09:04 [facility] (Rec: 01/28/21 08:54 [facility] [id number]) Special Tests Lumbar Spine Special Tests Adin Test Results hip flexor tightness Straight Leg Raise Test Results negative Comments hamstring tightness PT-OP-M Strength Start: 01/24/21 08:05 Freq: Status: Active Protocol: Document 01/24/21 09:04 [facility] (Rec: 01/28/21 08:54 [facility] [id number]) Hip Strength Hip Manual Muscle Testing silvana Flexion (L2) 4 Good Extension (S1) 4- Good- Abduction 4- Good- Adduction 4 Good External Rotation 4- Good- Internal Rotation 4- Good- PT-OP-Q Treatments Start: 01/24/21 08:05 Freq: Status: Active Protocol: Document 02/20/21 09:03 [facility] (Rec: 02/20/21 09:48 [facility] [id number]) Therapeutic Exercises Supine Exercises bridge with LE lift Reps/Minutes 10x Comments prep to lift only LTR Reps/Minutes 10x Comments activation of core TA with marching Reps/Minutes 2 x 10 reps bridges with pelvic floor and TA recruitment Reps/Minutes x 10 Sidelying Exercises hip abduction Sidelying Exercise Name LE's straight Reps/Minutes 10x Comments cues for core activation, no rolling clamshell Reps/Minutes 10x Comments cues for core activation, no rolling Manual Therapy Treatment Soft Tissue Mobilization piriformis Intensity/Depth Moderate Body Position Prone Comments body pillow PT-OP-R Modalities Start: 01/24/21 08:05 Freq: Status: Active Protocol: Document 02/20/21 09:03 [facility] (Rec: 02/20/21 16:33 [facility] [id number]) Hot Pack/Cold Pack Treatment Hot Pack Location piriformis, lateral hip Patient Position Sidelying Treatment Duration (minutes) 15 Patient Tolerance Good PT-OP-T Assessment and Plan Start: 01/24/21 08:05 Freq: Status: Active Protocol: Document 02/20/21 09:03 [facility] (Rec: 02/20/21 16:33 [facility] [id number]) Physical Therapy Assessment Goals unable to do floor transfers Impairment unable to do floor transfers Orthotic Assistant Goal (LTG) Patient will be able to do floor transfers without pain independently as measure of improved function LTG Duration 04/24/21 function-limiting pain Impairment Oswestry disability Index SCore 32% Short Term Goal (STG) Improve RAVINDER score to no greater than 20% STG Duration 03/14/21 Group Home Goal (LTG) Improve RAVINDER score to no greater than 10% as measure of improved activity tolerance and function in the home and community LTG Duration 04/24/21 weakness Impairment no HEP to address weakness, muscle tightness, poor core stab Short Term Goal (STG) Patient to be independent and compliant with HEP for purposes of strength, flexibility, and core stabilization STG Duration 02/22/21 Group Home Goal (LTG) Patient to demonstrate muscle strength at least 4+/5, flexibility WNL, and good ability to activate core at rest and functionally with movement for improved activity tolerance LTG Duration 04/24/21 functional mobility Impairment step-to pattern on stairs, painful gait Group Home Goal (LTG) Patient will be able to ambulate on stairs with step- to pattern and take usual walks without an increase in pain LTG Duration 04/24/20 Assessment Summary Assessment Continued improvement noted. Discussed patient positioning in car for her to modify for improved comfort. Physical Therapy Plan Frequency and Duration Frequency of Treatment 2x/Week Duration of Treatment 12 weeks Plan of Care Start Date 01/24/21 Plan of Care End Date 04/24/21 Therapeutic Interventions Therapeutic Interventions Aquatic Therapy,Home Exercise Program,Manual Therapy, Neuromuscular Re-education, Patient/Caregiver Education, Self-Care/Home Management,Soft Tissue Mobilization,Taping, Therapeutic Activities, Therapeutic Exercises Modalities Cold Pack/Ice Massage,Electric Stimulation,Hot Packs, Iontophoresis,Ultrasound Next Visit Focus/Plan Next Note Type Treatment Note Next Visit Plan emphasis on core strengthening , gluteal activation. Review HEP, modify as indicated. Assess response to self release with miracle balls at home
--- NOTE | 2021-03-06 12:02 | PT.OTN ---
Current Diagnoses Dorsalgia, unspecified (03/06/21) Abnormal posture (03/06/21) Weakness (03/06/21) Physical Therapy Treatment Note PT-OP-A Visit Information Start: 01/24/21 08:05 Freq: Status: Active Protocol: Document 03/06/21 09:04 [facility] (Rec: 03/06/21 09:48 [facility] [id number]) Out-Patient Physical Therapy Visit Information Visit Information Visit Type Treatment Note Visit Start Time 09:03 Visit Stop Time 09:48 Total Visit Minutes 45 Visit Number 5 PT-OP-B Current Condition Start: 01/24/21 08:05 Freq: Status: Active Protocol: Document 02/08/21 11:22 [facility] (Rec: 02/08/21 12:07 [facility] [id number]) Current Condition History of Current Condition Onset Date 6 wks Current Complaints low back and posterior left sided pain, weakness History of Current Condition Long history of sciatica since right after chemotherapy, had again did PT in [place] 2015. No pain since then until 6 weeks ago. Going to chiropractor, ( Makenna Steele) increased pain after treatment; has been adjusting mid thoracic area. . Occasionally takes Advil, uses CBD or Lidocane patch, but wearing SI belt most helpful. Usually for exercise 1-2 miles with hills. Better with sitting. Moved into a new house end of October, probably lifted way too many thing. New floor is polished concrete. Plans to get new shoes with a lot of cushion. New couch for TV room supports in leaning back position after move. Has adjustable bed, sleeps with head and legs elevated. Doesn't sleep with pillow between knees. Hasn't been able to go up stairs alternating feet and having difficulty getting off the floor. Doesn't do any stretching. Has been doing massage therapy, Rolfing, may be hurting? Left LE doesn't feel strong. Prior Treatments and Tests 2016 MRI: mild arthritis hip and spine Future Testing and Treatments Planned return to MD if PT not helpful Treatment Goals Patient/Caregiver Goals decrease pain, improve strength and activity tolerance, establish exercise program. Prior Functional Status Baseline Function- ADL's Independent Baseline Function- Mobility Independent Baseline Function- Gait independent Baseline Function- Work/School retired Baseline Function- Recreation/Hobbies walking, gardening without difficulty Current Functional Impairments (Reported) Functional Limitations- ADL's painful Functional Limitations- Mobility/Gait painful, unable to get off floor or alternate feet on stairs Functional Limitations- Recreation/ painful Hobbies Personal Factors Other Personal Factors That May Effect PMH: fibromyalgia took Therapy/Recovery Guafesine, bilateral mastectomies. Scoliosis PT-OP-C Subjective Start: 01/24/21 08:05 Freq: Status: Active Protocol: Document 03/06/21 09:04 [facility] (Rec: 03/06/21 09:48 [facility] [id number]) OP-PT Subjective Patient Comments Patient Comments Just had Covid booster yesterday, not feeling well through the night, took Advil. Left shoulder sore. Low back better, still pain left buttock. Feels pretty good in am, can now stand to put pants on. Still worst pain with driving. Using 2 small wedge pillows in car, some helpful. PT-OP-G Mobility & Gait Start: 01/24/21 08:05 Freq: Status: Active Protocol: Document 01/24/21 09:04 [facility] (Rec: 01/28/21 08:54 [facility] [id number]) OP Gait Assessment Gait Gait Assistance Required: Independent Gait Deviations General Gait Pattern Flexed Trunk,Lateral Trunk Lean Factors Limiting Gait Function Factors Limiting Gait Function Pain Stair Climbing Evaluation Evaluation Level of Assist On Stairs Independent Technique/Endurance Stair Climbing Technique Step to Step PT-OP-H Neuro Start: 01/24/21 08:05 Freq: Status: Active Protocol: Document 01/24/21 09:04 [facility] (Rec: 01/28/21 08:54 [facility] [id number]) Sensation Evaluation Gross Sensation Gross Sensation WNL PT-OP-J Posture/Palpation/Skin Start: 01/24/21 08:05 Freq: Status: Active Protocol: Document 01/24/21 09:04 [facility] (Rec: 01/28/21 08:54 [facility] [id number]) Posture Evaluation Position Standing Head/C-Spine Posture Forward Head T-Spine Posture Increased Kyphosis Thorax Posture (R) Prominent L-Spine Posture Increased Lordosis,Shifted Left Shoulder Posture (L) Rounded,(R) Rounded Scapula Posture (L) Protracted,(R) Protracted Pelvis Posture (L) Iliac Crest Superior Weight Distribution Weight Shifted Right Palpation Assessment Location thoracolumbar parspinals Palpation Findings Soft Tissue Tightness,Muscle Guarding,Tenderness PT-OP-K Range of Motion Start: 01/24/21 08:05 Freq: Status: Active Protocol: Document 01/24/21 09:04 [facility] (Rec: 01/28/21 08:54 [facility] [id number]) Lumbar Spine Range of Motion Lumbar Spine Active Testing Position Standing Flexion 45 Extension 15 Rotation Left 20 Rotation Right 20 Lateral Flexion Left 30 Lateral Flexion Right 25 Hip Goniometric Range of Motion Hip Right Straight Leg Raise 45 Left Straight Leg Raise 50 Hip ROM Limitations Hip ROM Limitations Soft Tissue Tightness PT-OP-L Special Tests Start: 01/24/21 08:05 Freq: Status: Active Protocol: Document 01/24/21 09:04 [facility] (Rec: 01/28/21 08:54 [facility] [id number]) Special Tests Lumbar Spine Special Tests Adin Test Results hip flexor tightness Straight Leg Raise Test Results negative Comments hamstring tightness PT-OP-M Strength Start: 01/24/21 08:05 Freq: Status: Active Protocol: Document 01/24/21 09:04 [facility] (Rec: 01/28/21 08:54 [facility] [id number]) Hip Strength Hip Manual Muscle Testing silvana Flexion (L2) 4 Good Extension (S1) 4- Good- Abduction 4- Good- Adduction 4 Good External Rotation 4- Good- Internal Rotation 4- Good- PT-OP-Q Treatments Start: 01/24/21 08:05 Freq: Status: Active Protocol: Document 03/06/21 09:04 [facility] (Rec: 03/06/21 09:48 [facility] [id number]) Cardio Equipment Recumbent Stepper (Sci-Fit) Duration (Minutes) 10 Resistance 1.5 Other 1.1 . miles Therapeutic Exercises Sitting Exercises piriformis stretch Reps/Minutes 2x30 Manual Therapy Treatment Soft Tissue Mobilization piriformis Intensity/Depth Moderate Body Position Sidelying Comments body pillow Self-Care/Home Management Treatment Education Other Education use of tennis or raquetball for self-massage PT-OP-R Modalities Start: 01/24/21 08:05 Freq: Status: Active Protocol: Document 03/06/21 09:04 [facility] (Rec: 03/06/21 09:48 [facility] [id number]) Hot Pack/Cold Pack Treatment Hot Pack Location piriformis, lateral hip Patient Position Sidelying Treatment Duration (minutes) 15 Patient Tolerance Good Ultrasound Therapy Treatment piriformis Patient Position Sidelying Frequency Setting (mHz) 1 Duty Cycle 50% Intensity Setting (w/cm2) 1.4 PT-OP-T Assessment and Plan Start: 01/24/21 08:05 Freq: Status: Active Protocol: Document 03/06/21 09:04 [facility] (Rec: 03/06/21 09:48 [facility] [id number]) Physical Therapy Assessment Goals unable to do floor transfers Impairment unable to do floor transfers Sole Cementer Goal (LTG) Patient will be able to do floor transfers without pain independently as measure of improved function LTG Duration 04/24/21 function-limiting pain Impairment Oswestry disability Index SCore 32% Short Term Goal (STG) Improve RAVINDER score to no greater than 20% STG Duration 03/14/21 Sole Cementer Goal (LTG) Improve RAVINDER score to no greater than 10% as measure of improved activity tolerance and function in the home and community LTG Duration 04/24/21 weakness Impairment no HEP to address weakness, muscle tightness, poor core stab Short Term Goal (STG) Patient to be independent and compliant with HEP for purposes of strength, flexibility, and core stabilization STG Duration 02/22/21 [facility] Goal (LTG) Patient to demonstrate muscle strength at least 4+/5, flexibility WNL, and good ability to activate core at rest and functionally with movement for improved activity tolerance LTG Duration 04/24/21 functional mobility Impairment step-to pattern on stairs, painful gait [facility] Goal (LTG) Patient will be able to ambulate on stairs with step- to pattern and take usual walks without an increase in pain LTG Duration 04/24/20 Assessment Summary Assessment Improving function though sitting in car remains biggest issue. Feel we need to work next session at patient car regarding positioning. Good compliance to HEP, continued improved function. Physical Therapy Plan Frequency and Duration Frequency of Treatment 2x/Week Duration of Treatment 12 weeks Plan of Care Start Date 01/24/21 Plan of Care End Date 04/24/21 Therapeutic Interventions Therapeutic Interventions Aquatic Therapy,Home Exercise Program,Manual Therapy, Neuromuscular Re-education, Patient/Caregiver Education, Self-Care/Home Management,Soft Tissue Mobilization,Taping, Therapeutic Activities, Therapeutic Exercises Modalities Cold Pack/Ice Massage,Electric Stimulation,Hot Packs, Iontophoresis,Ultrasound Next Visit Focus/Plan Next Note Type Treatment Note Next Visit Plan Continue to progress ther ex as tolerated, manual therapy and modalities as indicated for decreased muscle tension and paion.
--- NOTE | 2021-03-12 14:35 | PT.OTN ---
Current Diagnoses Dorsalgia, unspecified (03/12/21) Abnormal posture (03/12/21) Weakness (03/12/21) Physical Therapy Treatment Note PT-OP-A Visit Information Start: 01/24/21 08:05 Freq: Status: Active Protocol: Document 03/12/21 08:12 SAK (Rec: 03/12/21 09:07 SAK [id number]) Out-Patient Physical Therapy Visit Information Visit Information Visit Type Treatment Note Visit Start Time 08:15 Visit Stop Time 09:15 Total Visit Minutes 60 Visit Number 6 PT-OP-B Current Condition Start: 01/24/21 08:05 Freq: Status: Active Protocol: Document 02/08/21 11:22 SAK (Rec: 02/08/21 12:07 SAK [id number]) Current Condition History of Current Condition Onset Date 6 wks Current Complaints low back and posterior left sided pain, weakness History of Current Condition Long history of sciatica 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 No pain since then until 6 weeks ago. Going to chiropractor, ( Makenna Steele) increased pain after treatment; has been adjusting mid thoracic area. . Occasionally takes Advil, uses CBD or Lidocane patch, but wearing SI belt most helpful. Usually for exercise 1-2 miles with hills. Better with sitting. Moved into a new house end of October, probably lifted way too many thing. New floor is polished concrete. Plans to get new shoes with a lot of cushion. New couch for TV room supports in leaning back position after move. Has adjustable bed, sleeps with head and legs elevated. Doesn't sleep with pillow between knees. Hasn't been able to go up stairs alternating feet and having difficulty getting off the floor. Doesn't do any stretching. Has been doing massage therapy, Rolfing, may be hurting? Left LE doesn't feel strong. Prior Treatments and Tests 2016 MRI: mild arthritis hip and spine Future Testing and Treatments Planned return to MD if PT not helpful Treatment Goals Patient/Caregiver Goals decrease pain, improve strength and activity tolerance, establish exercise program. Prior Functional Status Baseline Function- ADL's Independent Baseline Function- Mobility Independent Baseline Function- Gait independent Baseline Function- Work/School retired Baseline Function- Recreation/Hobbies walking, gardening without difficulty Current Functional Impairments (Reported) Functional Limitations- ADL's painful Functional Limitations- Mobility/Gait painful, unable to get off floor or alternate feet on stairs Functional Limitations- Recreation/ painful Hobbies Personal Factors Other Personal Factors That May Effect PMH: fibromyalgia took Therapy/Recovery Guafesine, bilateral mastectomies. Scoliosis PT-OP-C Subjective Start: 01/24/21 08:05 Freq: Status: Active Protocol: Document 03/12/21 08:12 SAK (Rec: 03/12/21 09:07 [facility] [id number]) OP-PT Subjective Patient Comments Patient Comments Pain has been pretty good in back and hip but not much time in car. States Miracle Balls not firm enough to work on piriformis muscle, will get tennis or raquetball. Still not feeling stretch in piriformis with shown stretch. Shoulder pain got worse, hard and red area, called online nurse, doctor recommended Advil, was finally better the next day. States has difficulty stretching her quads PT-OP-G Mobility & Gait Start: 01/24/21 08:05 Freq: Status: Active Protocol: Document 01/24/21 09:04 [facility] (Rec: 01/28/21 08:54 [facility] [id number]) OP Gait Assessment Gait Gait Assistance Required: Independent Gait Deviations General Gait Pattern Flexed Trunk,Lateral Trunk Lean Factors Limiting Gait Function Factors Limiting Gait Function Pain Stair Climbing Evaluation Evaluation Level of Assist On Stairs Independent Technique/Endurance Stair Climbing Technique Step to Step PT-OP-H Neuro Start: 01/24/21 08:05 Freq: Status: Active Protocol: Document 01/24/21 09:04 [facility] (Rec: 01/28/21 08:54 [facility] [id number]) Sensation Evaluation Gross Sensation Gross Sensation WNL PT-OP-J Posture/Palpation/Skin Start: 01/24/21 08:05 Freq: Status: Active Protocol: Document 01/24/21 09:04 [facility] (Rec: 01/28/21 08:54 [facility] [id number]) Posture Evaluation Position Standing Head/C-Spine Posture Forward Head T-Spine Posture Increased Kyphosis Thorax Posture (R) Prominent L-Spine Posture Increased Lordosis,Shifted Left Shoulder Posture (L) Rounded,(R) Rounded Scapula Posture (L) Protracted,(R) Protracted Pelvis Posture (L) Iliac Crest Superior Weight Distribution Weight Shifted Right Palpation Assessment Location thoracolumbar parspinals Palpation Findings Soft Tissue Tightness,Muscle Guarding,Tenderness PT-OP-K Range of Motion Start: 01/24/21 08:05 Freq: Status: Active Protocol: Document 01/24/21 09:04 [facility] (Rec: 01/28/21 08:54 [facility] [id number]) Lumbar Spine Range of Motion Lumbar Spine Active Testing Position Standing Flexion 45 Extension 15 Rotation Left 20 Rotation Right 20 Lateral Flexion Left 30 Lateral Flexion Right 25 Hip Goniometric Range of Motion Hip Right Straight Leg Raise 45 Left Straight Leg Raise 50 Hip ROM Limitations Hip ROM Limitations Soft Tissue Tightness PT-OP-L Special Tests Start: 01/24/21 08:05 Freq: Status: Active Protocol: Document 01/24/21 09:04 [facility] (Rec: 01/28/21 08:54 [facility] [id number]) Special Tests Lumbar Spine Special Tests Adin Test Results hip flexor tightness Straight Leg Raise Test Results negative Comments hamstring tightness PT-OP-M Strength Start: 01/24/21 08:05 Freq: Status: Active Protocol: Document 01/24/21 09:04 [facility] (Rec: 01/28/21 08:54 [facility] [id number]) Hip Strength Hip Manual Muscle Testing silvana Flexion (L2) 4 Good Extension (S1) 4- Good- Abduction 4- Good- Adduction 4 Good External Rotation 4- Good- Internal Rotation 4- Good- PT-OP-Q Treatments Start: 01/24/21 08:05 Freq: Status: Active Protocol: Document 03/12/21 08:12 [facility] (Rec: 03/12/21 09:07 [facility] [id number]) Cardio Equipment Recumbent Stepper (Sci-Fit) Duration (Minutes) 10 Resistance 1.7 Therapeutic Exercises Supine Exercises figure 4 stretch Reps/Minutes 2x30 Comments cues to pull opp leg toward her Sidelying Exercises quad stretch Reps/Minutes 2x30 Sitting Exercises piriformis stretch Reps/Minutes 2x30 Comments cues to lean forward with straight spine to increase stretch Standing Exercises chair squat Reps/Minutes 10x Comments cues for long spine monster walks Resistance L1 TB Reps/Minutes 2x ea motion Comments fwd,bck,side quad stretch Equipment Used towel, chair Reps/Minutes 1x30 Therapeutic Activity Therapeutic Activity car and chair positioning Comments went out to patient's car with patient to problem-solve her positioning. She has 2 wedges in seat, gets excess extension at T/L junction and excess kyphosis T spine in car , instructed in use of towel roll or folded towel at thoracic spine for improved alignment. Demonstrated good understanding and will try on her own. Manual Therapy Treatment Soft Tissue Mobilization piriformis Intensity/Depth Moderate Body Position Sidelying PT-OP-R Modalities Start: 01/24/21 08:05 Freq: Status: Active Protocol: Document 03/12/21 08:12 SAK (Rec: 03/12/21 09:07 [facility]AK [id number]) Hot Pack/Cold Pack Treatment Hot Pack Location piriformis, lateral hip Patient Position Sidelying Treatment Duration (minutes) 15 Patient Tolerance Good PT-OP-T Assessment and Plan Start: 01/24/21 08:05 Freq: Status: Active Protocol: Document 03/12/21 08:12 SAK (Rec: 03/12/21 09:07 [facility] [id number]) Physical Therapy Assessment Goals unable to do floor transfers Impairment unable to do floor transfers Retirement Goal (LTG) Patient will be able to do floor transfers without pain independently as measure of improved function LTG Duration 04/24/21 function-limiting pain Impairment Oswestry disability Index SCore 32% Short Term Goal (STG) Improve RAVINDER score to no greater than 20% STG Duration 03/14/21 Kosher Dietary Service Manager Goal (LTG) Improve RAVINDER score to no greater than 10% as measure of improved activity tolerance and function in the home and community LTG Duration 04/24/21 weakness Impairment no HEP to address weakness, muscle tightness, poor core stab Short Term Goal (STG) Patient to be independent and compliant with HEP for purposes of strength, flexibility, and core stabilization STG Duration 02/22/21 Kosher Dietary Service Manager Goal (LTG) Patient to demonstrate muscle strength at least 4+/5, flexibility WNL, and good ability to activate core at rest and functionally with movement for improved activity tolerance LTG Duration 04/24/21 functional mobility Impairment step-to pattern on stairs, painful gait Retirement Goal (LTG) Patient will be able to ambulate on stairs with step- to pattern and take usual walks without an increase in pain LTG Duration 04/24/20 Assessment Summary Assessment Issued level 3 TB for HEP, advanced standing ex with monster walks with band, worked on problem solving car positioning. Need to review and update HEP handouts and increase time on manual techniques next session. Physical Therapy Plan Frequency and Duration Frequency of Treatment 2x/Week Duration of Treatment 12 weeks Plan of Care Start Date 01/24/21 Plan of Care End Date 04/24/21 Therapeutic Interventions Therapeutic Interventions Aquatic Therapy,Home Exercise Program,Manual Therapy, Neuromuscular Re-education, Patient/Caregiver Education, Self-Care/Home Management,Soft Tissue Mobilization,Taping, Therapeutic Activities, Therapeutic Exercises Modalities Cold Pack/Ice Massage,Electric Stimulation,Hot Packs, Iontophoresis,Ultrasound Next Visit Focus/Plan Next Note Type Treatment Note Next Visit Plan Prone pin and stretch for left piriformis. Review HEP and handouts to assure has all appropriate handouts. Increased manual emphasis on left piriformis.
--- NOTE | 2021-03-14 09:02 | PT.OPPN ---
Current Diagnoses Dorsalgia, unspecified (03/22/21) Abnormal posture (03/22/21) Weakness (03/22/21) Physical Therapy Progress Note PT-OP-A Visit Information Start: 01/24/21 08:05 Freq: Status: Active Protocol: Document 03/14/21 08:13 SAK (Rec: 03/14/21 09:04 SAK [id number]) Out-Patient Physical Therapy Visit Information Visit Information Visit Type Treatment Note Visit Start Time 08:15 Visit Stop Time 09:15 Total Visit Minutes 60 Visit Number 6 PT-OP-B Current Condition Start: 01/24/21 08:05 Freq: Status: Active Protocol: Document 02/08/21 11:22 SAK (Rec: 02/08/21 12:07 SAK [id number]) Current Condition History of Current Condition Onset Date 6 wks Current Complaints low back and posterior left sided pain, weakness History of Current Condition Long history of sciatica since right after chemotherapy, had again did PT in [place] 2015. No pain since then until 6 weeks ago. Going to chiropractor, ( Makenna Steele) increased pain after treatment; has been adjusting mid thoracic area. . Occasionally takes Advil, uses CBD or Lidocane patch, but wearing SI belt most helpful. Usually for exercise 1-2 miles with hills. Better with sitting. Moved into a new house end of October, probably lifted way too many thing. New floor is polished concrete. Plans to get new shoes with a lot of cushion. New couch for TV room supports in leaning back position after move. Has adjustable bed, sleeps with head and legs elevated. Doesn't sleep with pillow between knees. Hasn't been able to go up stairs alternating feet and having difficulty getting off the floor. Doesn't do any stretching. Has been doing massage therapy, Rolfing, may be hurting? Left LE doesn't feel strong. Prior Treatments and Tests 2016 MRI: mild arthritis hip and spine Future Testing and Treatments Planned return to MD if PT not helpful Treatment Goals Patient/Caregiver Goals decrease pain, improve strength and activity tolerance, establish exercise program. Prior Functional Status Baseline Function- ADL's Independent Baseline Function- Mobility Independent Baseline Function- Gait independent Baseline Function- Work/School retired Baseline Function- Recreation/Hobbies walking, gardening without difficulty Current Functional Impairments (Reported) Functional Limitations- ADL's painful Functional Limitations- Mobility/Gait painful, unable to get off floor or alternate feet on stairs Functional Limitations- Recreation/ painful Hobbies Personal Factors Other Personal Factors That May Effect PMH: fibromyalgia took Therapy/Recovery Guafesine, bilateral mastectomies. Scoliosis PT-OP-C Subjective Start: 01/24/21 08:05 Freq: Status: Active Protocol: Document 03/14/21 08:13 [facility] (Rec: 03/14/21 09:04 [facility] [id number]) OP-PT Subjective Patient Comments Patient Comments Asking when do we do something different; much better but still that spot in my buttock, wondering about injections. Has had this pain about every 7 years. 80- 90% better. Hasn't tried folded towel in her car behind thoracic spine. Did feel bending forward when stretching piriformis helpful to reach right spot for stretching. Interested in aquatic therapy. PT-OP-G Mobility & Gait Start: 01/24/21 08:05 Freq: Status: Active Protocol: Document 01/24/21 09:04 [facility] (Rec: 01/28/21 08:54 [facility] [id number]) OP Gait Assessment Gait Gait Assistance Required: Independent Gait Deviations General Gait Pattern Flexed Trunk,Lateral Trunk Lean Factors Limiting Gait Function Factors Limiting Gait Function Pain Stair Climbing Evaluation Evaluation Level of Assist On Stairs Independent Technique/Endurance Stair Climbing Technique Step to Step PT-OP-H Neuro Start: 01/24/21 08:05 Freq: Status: Active Protocol: Document 01/24/21 09:04 [facility] (Rec: 01/28/21 08:54 [facility] [id number]) Sensation Evaluation Gross Sensation Gross Sensation WNL PT-OP-J Posture/Palpation/Skin Start: 01/24/21 08:05 Freq: Status: Active Protocol: Document 01/24/21 09:04 [facility] (Rec: 01/28/21 08:54 [facility] [id number]) Posture Evaluation Position Standing Head/C-Spine Posture Forward Head T-Spine Posture Increased Kyphosis Thorax Posture (R) Prominent L-Spine Posture Increased Lordosis,Shifted Left Shoulder Posture (L) Rounded,(R) Rounded Scapula Posture (L) Protracted,(R) Protracted Pelvis Posture (L) Iliac Crest Superior Weight Distribution Weight Shifted Right Palpation Assessment Location thoracolumbar parspinals Palpation Findings Soft Tissue Tightness,Muscle Guarding,Tenderness PT-OP-K Range of Motion Start: 01/24/21 08:05 Freq: Status: Active Protocol: Document 01/24/21 09:04 [facility]AK (Rec: 01/28/21 08:54 [facility] [id number]) Lumbar Spine Range of Motion Lumbar Spine Active Testing Position Standing Flexion 45 Extension 15 Rotation Left 20 Rotation Right 20 Lateral Flexion Left 30 Lateral Flexion Right 25 Hip Goniometric Range of Motion Hip Measured in Degrees Right Straight Leg Raise 45 Left Straight Leg Raise 50 Hip ROM Limitations Hip ROM Limitations Soft Tissue Tightness PT-OP-L Special Tests Start: 01/24/21 08:05 Freq: Status: Active Protocol: Document 01/24/21 09:04 [facility]AK (Rec: 01/28/21 08:54 [facility] [id number]) Special Tests Lumbar Spine Special Tests Adin Test Results hip flexor tightness Straight Leg Raise Test Results negative Comments hamstring tightness PT-OP-M Strength Start: 01/24/21 08:05 Freq: Status: Active Protocol: Document 01/24/21 09:04 [facility]AK (Rec: 01/28/21 08:54 [facility] [id number]) Hip Strength Hip Manual Muscle Testing silvana Flexion (L2) 4 Good Extension (S1) 4- Good- Abduction 4- Good- Adduction 4 Good External Rotation 4- Good- Internal Rotation 4- Good- PT-OP-T Assessment and Plan Start: 01/24/21 08:05 Freq: Status: Active Protocol: Document 03/14/21 08:13 [facility]AK (Rec: 03/14/21 16:24 [facility] [id number]) Physical Therapy Assessment Goals unable to do floor transfers Impairment unable to do floor transfers Beam Dyer Operator Goal (LTG) Patient will be able to do floor transfers without pain independently as measure of improved function LTG Duration 04/24/21 function-limiting pain Impairment Oswestry disability Index SCore 32% Short Term Goal (STG) Improve RAVINDER score to no greater than 20% STG Duration 03/14/21 Custodial Goal (LTG) Improve RAVINDER score to no greater than 10% as measure of improved activity tolerance and function in the home and community LTG Duration 04/24/21 weakness Impairment no HEP to address weakness, muscle tightness, poor core stab Short Term Goal (STG) Patient to be independent and compliant with HEP for purposes of strength, flexibility, and core stabilization STG Duration 02/22/21 Custodial Goal (LTG) Patient to demonstrate muscle strength at least 4+/5, flexibility WNL, and good ability to activate core at rest and functionally with movement for improved activity tolerance LTG Duration 04/24/21 functional mobility Impairment step-to pattern on stairs, painful gait Custodial Goal (LTG) Patient will be able to ambulate on stairs with step- to pattern and take usual walks without an increase in pain LTG Duration 04/24/20 Assessment Summary Assessment Issued updated HEP handout to include leaning forward with seated figure 4 stretch, add SLS. Patient felt ultrasound was prevously helpful so done again today. Overall patient making good progress. Continue to modify and progress HEP for strengthening , flexibility, biomechanical correction. May benefit from injection, also feel patient may benefit from aquatic PT. Physical Therapy Plan Frequency and Duration Frequency of Treatment 2x/Week Duration of Treatment 12 weeks Plan of Care Start Date 01/24/21 Plan of Care End Date 04/24/21 Therapeutic Interventions Therapeutic Interventions Aquatic Therapy,Home Exercise Program,Manual Therapy, Neuromuscular Re-education, Patient/Caregiver Education, Self-Care/Home Management,Soft Tissue Mobilization,Taping, Therapeutic Activities, Therapeutic Exercises Modalities Cold Pack/Ice Massage,Electric Stimulation,Hot Packs, Iontophoresis,Ultrasound Next Visit Focus/Plan Next Note Type Treatment Note Next Visit Plan Prone pin and stretch for left piriformis. Increased manual emphasis on left piriformis.
--- NOTE | 2021-03-14 16:24 | PT.OTN ---
Current Diagnoses Dorsalgia, unspecified (03/14/21) Abnormal posture (03/14/21) Weakness (03/14/21) Physical Therapy Treatment Note PT-OP-A Visit Information Start: 01/24/21 08:05 Freq: Status: Active Protocol: Document 03/14/21 08:13 SAK (Rec: 03/14/21 09:04 SAK [id number]) Out-Patient Physical Therapy Visit Information Visit Information Visit Type Treatment Note Visit Start Time 08:15 Visit Stop Time 09:15 Total Visit Minutes 60 Visit Number 6 PT-OP-B Current Condition Start: 01/24/21 08:05 Freq: Status: Active Protocol: Document 02/08/21 11:22 SAK (Rec: 02/08/21 12:07 SAK [id number]) Current Condition History of Current Condition Onset Date 6 wks Current Complaints low back and posterior left sided pain, weakness History of Current Condition Long history of sciatica since right after chemotherapy, had again did PT in [place] 2015. No pain since then until 6 weeks ago. Going to chiropractor, ( Makenna Steele) increased pain after treatment; has been adjusting mid thoracic area. . Occasionally takes Advil, uses CBD or Lidocane patch, but wearing SI belt most helpful. Usually for exercise 1-2 miles with hills. Better with sitting. Moved into a new house end of October, probably lifted way too many thing. New floor is polished concrete. Plans to get new shoes with a lot of cushion. New couch for TV room supports in leaning back position after move. Has adjustable bed, sleeps with head and legs elevated. Doesn't sleep with pillow between knees. Hasn't been able to go up stairs alternating feet and having difficulty getting off the floor. Doesn't do any stretching. Has been doing massage therapy, Rolfing, may be hurting? Left LE doesn't feel strong. Prior Treatments and Tests 2015 MRI: mild arthritis hip and spine Future Testing and Treatments Planned return to MD if PT not helpful Treatment Goals Patient/Caregiver Goals decrease pain, improve strength and activity tolerance, establish exercise program. Prior Functional Status Baseline Function- ADL's Independent Baseline Function- Mobility Independent Baseline Function- Gait independent Baseline Function- Work/School retired Baseline Function- Recreation/Hobbies walking, gardening without difficulty Current Functional Impairments (Reported) Functional Limitations- ADL's painful Functional Limitations- Mobility/Gait painful, unable to get off floor or alternate feet on stairs Functional Limitations- Recreation/ painful Hobbies Personal Factors Other Personal Factors That May Effect PMH: fibromyalgia took Therapy/Recovery Guafesine, bilateral mastectomies. Scoliosis PT-OP-C Subjective Start: 01/24/21 08:05 Freq: Status: Active Protocol: Document 03/14/21 08:13 [facility] (Rec: 03/14/21 09:04 [facility] [id number]) OP-PT Subjective Patient Comments Patient Comments Asking when do we do something different; much better but still that spot in my buttock, wondering about injections. Has had this pain about every 7 years. 80- 90% better. Hasn't tried folded towel in her car behind thoracic spine. Did feel bending forward when stretching piriformis helpful to reach right spot for stretching. Interested in aquatic therapy. PT-OP-G Mobility & Gait Start: 01/24/21 08:05 Freq: Status: Active Protocol: Document 01/24/21 09:04 [facility] (Rec: 01/28/21 08:54 [facility] [id number]) OP Gait Assessment Gait Gait Assistance Required: Independent Gait Deviations General Gait Pattern Flexed Trunk,Lateral Trunk Lean Factors Limiting Gait Function Factors Limiting Gait Function Pain Stair Climbing Evaluation Evaluation Level of Assist On Stairs Independent Technique/Endurance Stair Climbing Technique Step to Step PT-OP-H Neuro Start: 01/24/21 08:05 Freq: Status: Active Protocol: Document 01/24/21 09:04 [facility] (Rec: 01/28/21 08:54 [facility] [id number]) Sensation Evaluation Gross Sensation Gross Sensation WNL PT-OP-J Posture/Palpation/Skin Start: 01/24/21 08:05 Freq: Status: Active Protocol: Document 01/24/21 09:04 [facility] (Rec: 01/28/21 08:54 [facility] [id number]) Posture Evaluation Position Standing Head/C-Spine Posture Forward Head T-Spine Posture Increased Kyphosis Thorax Posture (R) Prominent L-Spine Posture Increased Lordosis,Shifted Left Shoulder Posture (L) Rounded,(R) Rounded Scapula Posture (L) Protracted,(R) Protracted Pelvis Posture (L) Iliac Crest Superior Weight Distribution Weight Shifted Right Palpation Assessment Location thoracolumbar parspinals Palpation Findings Soft Tissue Tightness,Muscle Guarding,Tenderness PT-OP-K Range of Motion Start: 01/24/21 08:05 Freq: Status: Active Protocol: Document 01/24/21 09:04 SAK (Rec: 01/28/21 08:54 [facility] [id number]) Lumbar Spine Range of Motion Lumbar Spine Active Testing Position Standing Flexion 45 Extension 15 Rotation Left 20 Rotation Right 20 Lateral Flexion Left 30 Lateral Flexion Right 25 Hip Goniometric Range of Motion Hip Right Straight Leg Raise 45 Left Straight Leg Raise 50 Hip ROM Limitations Hip ROM Limitations Soft Tissue Tightness PT-OP-L Special Tests Start: 01/24/21 08:05 Freq: Status: Active Protocol: Document 01/24/21 09:04 SAK (Rec: 01/28/21 08:54 [facility] [id number]) Special Tests Lumbar Spine Special Tests Adin Test Results hip flexor tightness Straight Leg Raise Test Results negative Comments hamstring tightness PT-OP-M Strength Start: 01/24/21 08:05 Freq: Status: Active Protocol: Document 01/24/21 09:04 [facility] (Rec: 01/28/21 08:54 [facility] [id number]) Hip Strength Hip Manual Muscle Testing silvana Flexion (L2) 4 Good Extension (S1) 4- Good- Abduction 4- Good- Adduction 4 Good External Rotation 4- Good- Internal Rotation 4- Good- PT-OP-Q Treatments Start: 01/24/21 08:05 Freq: Status: Active Protocol: Document 03/14/21 08:13 SAK (Rec: 03/14/21 09:04 SAK [id number]) Cardio Equipment Recumbent Stepper (Sci-Fit) Duration (Minutes) 10 Resistance 1.7 Seat Position 11 Therapeutic Exercises Supine Exercises figure 4 stretch Comments HEP bridge with LE lift Comments HEP LTR Comments HEP TA with marching Comments HEP bridges with pelvic floor and TA recruitment Comments HEP pelvic realignment exercises Comments HEP hamstring Comments HEP SKTC Comments HEP pillow squeeze Comments HEP hip ab/ER Comments HEP kegel Comments HEP Sidelying Exercises quad stretch Comments HEP hip abduction Comments HEP clamshell Comments HEP Sitting Exercises piriformis stretch Comments HEP Standing Exercises tiltboard Reps/Minutes EO,EC Comments cues to watch for compensation SLS Equipment Used mirror for visual feedback Reps/Minutes 5 min Comments cues for neutral alignment, core stabilization chair squat Equipment Used ball between knees Reps/Minutes 10x Comments cues for long spine monster walks Comments HEP Manual Therapy Treatment Soft Tissue Mobilization piriformis Comments no time today. PT-OP-R Modalities Start: 01/24/21 08:05 Freq: Status: Active Protocol: Document 03/14/21 08:13 ADRIANA (Rec: 03/14/21 09:04 [facility] [id number]) Hot Pack/Cold Pack Treatment Hot Pack Location piriformis, lateral hip Patient Position Sidelying Treatment Duration (minutes) 15 Patient Tolerance Good Ultrasound Therapy Treatment piriformis Treatment Duration (minutes) 8 Patient Position Sidelying Frequency Setting (mHz) 1 Duty Cycle 50% Intensity Setting (w/cm2) 1.4 PT-OP-T Assessment and Plan Start: 01/24/21 08:05 Freq: Status: Active Protocol: Document 03/14/21 08:13 [facility] (Rec: 03/14/21 16:24 [facility] [id number]) Physical Therapy Assessment Goals unable to do floor transfers Impairment unable to do floor transfers Halfway Goal (LTG) Patient will be able to do floor transfers without pain independently as measure of improved function LTG Duration 04/24/21 function-limiting pain Impairment Oswestry disability Index SCore 32% Short Term Goal (STG) Improve RAVINDER score to no greater than 20% STG Duration 03/14/21 Set Up [employer] Goal (LTG) Improve RAVINDER score to no greater than 10% as measure of improved activity tolerance and function in the home and community LTG Duration 04/24/21 weakness Impairment no HEP to address weakness, muscle tightness, poor core stab Short Term Goal (STG) Patient to be independent and compliant with HEP for purposes of strength, flexibility, and core stabilization STG Duration 02/22/21 Set Up [employer] Goal (LTG) Patient to demonstrate muscle strength at least 4+/5, flexibility WNL, and good ability to activate core at rest and functionally with movement for improved activity tolerance LTG Duration 04/24/21 functional mobility Impairment step-to pattern on stairs, painful gait Set Up [employer] Goal (LTG) Patient will be able to ambulate on stairs with step- to pattern and take usual walks without an increase in pain LTG Duration 04/24/20 Assessment Summary Assessment Issued updated HEP handout to include leaning forward with seated figure 4 stretch, add SLS. Patient felt ultrasound was prevously helpful so done again today. Overall patient making good progress. Continue to modify and progress HEP for strengthening , flexibility, biomechanical correction. May benefit from injection, also feel patient may benefit from aquatic PT. Physical Therapy Plan Frequency and Duration Frequency of Treatment 2x/Week Duration of Treatment 12 weeks Plan of Care Start Date 01/24/21 Plan of Care End Date 04/24/21 Therapeutic Interventions Therapeutic Interventions Aquatic Therapy,Home Exercise Program,Manual Therapy, Neuromuscular Re-education, Patient/Caregiver Education, Self-Care/Home Management,Soft Tissue Mobilization,Taping, Therapeutic Activities, Therapeutic Exercises Modalities Cold Pack/Ice Massage,Electric Stimulation,Hot Packs, Iontophoresis,Ultrasound Next Visit Focus/Plan Next Note Type Treatment Note Next Visit Plan Prone pin and stretch for left piriformis. Increased manual emphasis on left piriformis.
--- NOTE | 2021-03-22 12:26 | PT.OTN ---
Current Diagnoses Dorsalgia, unspecified (03/22/21) Abnormal posture (03/22/21) Weakness (03/22/21) Physical Therapy Treatment Note PT-OP-A Visit Information Start: 01/24/21 08:05 Freq: Status: Active Protocol: Document 03/22/21 09:03 SAK (Rec: 03/22/21 09:51 SAK [id number]) Out-Patient Physical Therapy Visit Information Visit Information Visit Type Treatment Note Visit Start Time 08:15 Visit Stop Time 09:15 Total Visit Minutes 60 Visit Number 9 PT-OP-B Current Condition Start: 01/24/21 08:05 Freq: Status: Active Protocol: Document 02/08/21 11:22 SAK (Rec: 02/08/21 12:07 SAK [id number]) Current Condition History of Current Condition Onset Date 6 wks Current Complaints low back and posterior left sided pain, weakness History of Current Condition Long history of sciatica since right after chemotherapy, had again did PT in [place] 2015. No pain since then until 6 weeks ago. Going to chiropractor, ( Makenna Steele) increased pain after treatment; has been adjusting mid thoracic area. . Occasionally takes Advil, uses CBD or Lidocane patch, but wearing SI belt most helpful. Usually for exercise 1-2 miles with hills. Better with sitting. Moved into a new house end of October, probably lifted way too many thing. New floor is polished concrete. Plans to get new shoes with a lot of cushion. New couch for TV room supports in leaning back position after move. Has adjustable bed, sleeps with head and legs elevated. Doesn't sleep with pillow between knees. Hasn't been able to go up stairs alternating feet and having difficulty getting off the floor. Doesn't do any stretching. Has been doing massage therapy, Rolfing, may be hurting? Left LE doesn't feel strong. Prior Treatments and Tests 2015 MRI: mild arthritis hip and spine Future Testing and Treatments Planned return to MD if PT not helpful Treatment Goals Patient/Caregiver Goals decrease pain, improve strength and activity tolerance, establish exercise program. Prior Functional Status Baseline Function- ADL's Independent Baseline Function- Mobility Independent Baseline Function- Gait independent Baseline Function- Work/School retired Baseline Function- Recreation/Hobbies walking, gardening without difficulty Current Functional Impairments (Reported) Functional Limitations- ADL's painful Functional Limitations- Mobility/Gait painful, unable to get off floor or alternate feet on stairs Functional Limitations- Recreation/ painful Hobbies Personal Factors Other Personal Factors That May Effect PMH: fibromyalgia took Therapy/Recovery Guafesine, bilateral mastectomies. Scoliosis PT-OP-C Subjective Start: 01/24/21 08:05 Freq: Status: Active Protocol: Document 03/22/21 09:03 SAK (Rec: 03/22/21 09:51 [facility] [id number]) OP-PT Subjective Patient Comments Patient Comments Feels like she has plateaued; lots of improvement initially, now not much. Sometimes can sleep on left side, sometimes not. Still doing accupuncture . Wants to eliminate pain. PT-OP-G Mobility & Gait Start: 01/24/21 08:05 Freq: Status: Active Protocol: Document 01/24/21 09:04 SAK (Rec: 01/28/21 08:54 [facility] [id number]) OP Gait Assessment Gait Gait Assistance Required: Independent Gait Deviations General Gait Pattern Flexed Trunk,Lateral Trunk Lean Factors Limiting Gait Function Factors Limiting Gait Function Pain Stair Climbing Evaluation Evaluation Level of Assist On Stairs Independent Technique/Endurance Stair Climbing Technique Step to Step PT-OP-H Neuro Start: 01/24/21 08:05 Freq: Status: Active Protocol: Document 01/24/21 09:04 [facility] (Rec: 01/28/21 08:54 [facility] [id number]) Sensation Evaluation Gross Sensation Gross Sensation WNL PT-OP-J Posture/Palpation/Skin Start: 01/24/21 08:05 Freq: Status: Active Protocol: Document 01/24/21 09:04 [facility] (Rec: 01/28/21 08:54 [facility] [id number]) Posture Evaluation Position Standing Head/C-Spine Posture Forward Head T-Spine Posture Increased Kyphosis Thorax Posture (R) Prominent L-Spine Posture Increased Lordosis,Shifted Left Shoulder Posture (L) Rounded,(R) Rounded Scapula Posture (L) Protracted,(R) Protracted Pelvis Posture (L) Iliac Crest Superior Weight Distribution Weight Shifted Right Palpation Assessment Location thoracolumbar parspinals Palpation Findings Soft Tissue Tightness,Muscle Guarding,Tenderness PT-OP-K Range of Motion Start: 01/24/21 08:05 Freq: Status: Active Protocol: Document 01/24/21 09:04 [facility] (Rec: 01/28/21 08:54 [facility] [id number]) Lumbar Spine Range of Motion Lumbar Spine Active Testing Position Standing Flexion 45 Extension 15 Rotation Left 20 Rotation Right 20 Lateral Flexion Left 30 Lateral Flexion Right 25 Hip Goniometric Range of Motion Hip Right Straight Leg Raise 45 Left Straight Leg Raise 50 Hip ROM Limitations Hip ROM Limitations Soft Tissue Tightness PT-OP-L Special Tests Start: 01/24/21 08:05 Freq: Status: Active Protocol: Document 01/24/21 09:04 [facility] (Rec: 01/28/21 08:54 [facility] [id number]) Special Tests Lumbar Spine Special Tests Adin Test Results hip flexor tightness Straight Leg Raise Test Results negative Comments hamstring tightness PT-OP-M Strength Start: 01/24/21 08:05 Freq: Status: Active Protocol: Document 01/24/21 09:04 [facility] (Rec: 01/28/21 08:54 [facility] [id number]) Hip Strength Hip Manual Muscle Testing silvana Flexion (L2) 4 Good Extension (S1) 4- Good- Abduction 4- Good- Adduction 4 Good External Rotation 4- Good- Internal Rotation 4- Good- PT-OP-Q Treatments Start: 01/24/21 08:05 Freq: Status: Active Protocol: Document 03/14/21 08:13 [facility] (Rec: 03/14/21 09:04 [facility] [id number]) Cardio Equipment Recumbent Stepper (Sci-Fit) Duration (Minutes) 10 Resistance 1.7 Seat Position 11 Therapeutic Exercises Supine Exercises figure 4 stretch Comments HEP bridge with LE lift Comments HEP LTR Comments HEP TA with marching Comments HEP bridges with pelvic floor and TA recruitment Comments HEP pelvic realignment exercises Comments HEP hamstring Comments HEP SKTC Comments HEP pillow squeeze Comments HEP hip ab/ER Comments HEP kegel Comments HEP Sidelying Exercises quad stretch Comments HEP hip abduction Comments HEP clamshell Comments HEP Sitting Exercises piriformis stretch Comments HEP Standing Exercises tiltboard Reps/Minutes EO,EC Comments cues to watch for compensation SLS Equipment Used mirror for visual feedback Reps/Minutes 5 min Comments cues for neutral alignment, core stabilization chair squat Equipment Used ball between knees Reps/Minutes 10x Comments cues for long spine monster walks Comments HEP Manual Therapy Treatment Soft Tissue Mobilization piriformis Comments no time today. PT-OP-R Modalities Start: 01/24/21 08:05 Freq: Status: Active Protocol: Document 03/14/21 08:13 SAK (Rec: 03/14/21 09:04 SAK [id number]) Hot Pack/Cold Pack Treatment Hot Pack Location piriformis, lateral hip Patient Position Sidelying Treatment Duration (minutes) 15 Patient Tolerance Good Ultrasound Therapy Treatment piriformis Treatment Duration (minutes) 8 Patient Position Sidelying Frequency Setting (mHz) 1 Duty Cycle 50% Intensity Setting (w/cm2) 1.4 PT-OP-T Assessment and Plan Start: 01/24/21 08:05 Freq: Status: Active Protocol: Document 03/22/21 09:03 SAK (Rec: 03/22/21 09:51 SAK [id number]) Physical Therapy Assessment Goals unable to do floor transfers Impairment unable to do floor transfers [employer]ist Goal (LTG) Patient will be able to do floor transfers without pain independently as measure of improved function 03/22/21: not reassessed today LTG Duration 04/24/21 function-limiting pain Impairment Oswestry disability Index SCore 32% Short Term Goal (STG) Improve RAVINDER score to no greater than 20% 03/22/21: decreased to 28%, most difficulty with standing longer than 10 min. STG Duration 03/14/21 Usp Goal (LTG) Improve RAVINDER score to no greater than 10% as measure of improved activity tolerance and function in the home and community LTG Duration 04/24/21 weakness Impairment no HEP to address weakness, muscle tightness, poor core stab Short Term Goal (STG) Patient to be independent and compliant with HEP for purposes of strength, flexibility, and core stabilization 03/22/21: goal met STG Duration goal met Usp Goal (LTG) Patient to demonstrate muscle strength at least 4+/5, flexibility WNL, and good ability to activate core at rest and functionally with movement for improved activity tolerance LTG Duration 04/24/21 functional mobility Impairment step-to pattern on stairs, painful gait Usp Goal (LTG) Patient will be able to ambulate on stairs with step- to pattern and take usual walks without an increase in pain 03/22/21: goal progress LTG Duration 04/24/20 Assessment Summary Assessment added reverse clam, prone quad stretch, prone pin and stretch with IR/ER. Trial IFES. Patient to consider aquatic PT. Patient reports 80-90% improved but wants to eliminate pain. Continues with alternative treatments including accupuncture appointment today. IT band stretch helpful, and PT added STM to IT band. Pelvis symmetrical, leg length equal. Physical Therapy Plan Frequency and Duration Frequency of Treatment 2x/Week Duration of Treatment 12 weeks Plan of Care Start Date 01/24/21 Plan of Care End Date 04/24/21 Therapeutic Interventions Therapeutic Interventions Aquatic Therapy,Home Exercise Program,Manual Therapy, Neuromuscular Re-education, Patient/Caregiver Education, Self-Care/Home Management,Soft Tissue Mobilization,Taping, Therapeutic Activities, Therapeutic Exercises Modalities Cold Pack/Ice Massage,Electric Stimulation,Hot Packs, Iontophoresis,Ultrasound Next Visit Focus/Plan Next Note Type Treatment Note Next Visit Plan Evaluate response to pin and stretch, IFES, and manual work to IT band today. Review new HEP ex to assure correct performance.
--- NOTE | 2021-04-17 11:45 | PT-OP ANOTE ---
Called patient to check on whether she wanted to continue with PT; has cancelled last 3 appt. LVM.
--- NOTE | 2021-04-18 10:08 | PT-OP ANOTE ---
cancelled aquatic PT appointment via [employer]
--- NOTE | 2021-05-08 08:35 | PT.OPDS ---
Current Diagnoses Dorsalgia, unspecified (03/22/21) Abnormal posture (03/22/21) Weakness (03/22/21) Visit Care Team Role Provider Type MUKUL Solis Attending Provider [employer] Tool Repair Technician Primary Care Provider Referring Provider Specialty: Family Practice Address: [address] [place] [address], [facility] [place], [address] Email: [email or web address] Visit Number Visit Number 9 Discharge Summary PT-OP-B Current Condition Start: 01/24/21 08:05 Freq: Status: Active Protocol: Document 02/08/21 11:22 SAK (Rec: 02/08/21 12:07 SAK [id number]) Current Condition History of Current Condition Onset Date 6 wks Current Complaints low back and posterior left sided pain, weakness History of Current Condition Long history of sciatica 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 No pain since then until 6 weeks ago. Going to chiropractor, ( Makenna Steele) increased pain after treatment; has been adjusting mid thoracic area. . Occasionally takes Advil, uses CBD or Lidocane patch, but wearing SI belt most helpful. Usually for exercise 1-2 miles with hills. Better with sitting. Moved into a new house end of October, probably lifted way too many thing. New floor is polished concrete. Plans to get new shoes with a lot of cushion. New couch for TV room supports in leaning back position after move. Has adjustable bed, sleeps with head and legs elevated. Doesn't sleep with pillow between knees. Hasn't been able to go up stairs alternating feet and having difficulty getting off the floor. Doesn't do any stretching. Has been doing massage therapy, [place], may be hurting? Left LE doesn't feel strong. Prior Treatments and Tests 2016 MRI: mild arthritis hip and spine Future Testing and Treatments Planned return to MD if PT not helpful Treatment Goals Patient/Caregiver Goals decrease pain, improve strength and activity tolerance, establish exercise program. Prior Functional Status Baseline Function- ADL's Independent Baseline Function- Mobility Independent Baseline Function- Gait independent Baseline Function- Work/School retired Baseline Function- Recreation/Hobbies walking, gardening without difficulty Current Functional Impairments (Reported) Functional Limitations- ADL's painful Functional Limitations- Mobility/Gait painful, unable to get off floor or alternate feet on stairs Functional Limitations- Recreation/ painful Hobbies Personal Factors Other Personal Factors That May Effect PMH: fibromyalgia took Therapy/Recovery Guafesine, bilateral mastectomies. Scoliosis PT-OP-C Subjective Start: 01/24/21 08:05 Freq: Status: Active Protocol: Document 03/22/21 09:03 SAK (Rec: 03/22/21 09:51 [facility] [id number]) OP-PT Subjective Patient Comments Patient Comments Feels like she has plateaued; lots of improvement initially, now not much. Sometimes can sleep on left side, sometimes not. Still doing accupuncture . Wants to eliminate pain. PT-OP-G Mobility & Gait Start: 01/24/21 08:05 Freq: Status: Active Protocol: Document 01/24/21 09:04 [facility] (Rec: 01/28/21 08:54 [facility] [id number]) OP Gait Assessment Gait Gait Assistance Required: Independent Gait Deviations General Gait Pattern Flexed Trunk,Lateral Trunk Lean Factors Limiting Gait Function Factors Limiting Gait Function Pain Stair Climbing Evaluation Evaluation Level of Assist On Stairs Independent Technique/Endurance Stair Climbing Technique Step to Step PT-OP-H Neuro Start: 01/24/21 08:05 Freq: Status: Active Protocol: Document 01/24/21 09:04 [facility] (Rec: 01/28/21 08:54 [facility] [id number]) Sensation Evaluation Gross Sensation Gross Sensation WNL PT-OP-J Posture/Palpation/Skin Start: 01/24/21 08:05 Freq: Status: Active Protocol: Document 01/24/21 09:04 [facility] (Rec: 01/28/21 08:54 [facility] [id number]) Posture Evaluation Position Standing Head/C-Spine Posture Forward Head T-Spine Posture Increased Kyphosis Thorax Posture (R) Prominent L-Spine Posture Increased Lordosis,Shifted Left Shoulder Posture (L) Rounded,(R) Rounded Scapula Posture (L) Protracted,(R) Protracted Pelvis Posture (L) Iliac Crest Superior Weight Distribution Weight Shifted Right Palpation Assessment Location thoracolumbar parspinals Palpation Findings Soft Tissue Tightness,Muscle Guarding,Tenderness PT-OP-K Range of Motion Start: 01/24/21 08:05 Freq: Status: Active Protocol: Document 01/24/21 09:04 [facility] (Rec: 01/28/21 08:54 [facility] [id number]) Lumbar Spine Range of Motion Lumbar Spine Active Testing Position Standing Flexion 45 Extension 15 Rotation Left 20 Rotation Right 20 Lateral Flexion Left 30 Lateral Flexion Right 25 Hip Goniometric Range of Motion Hip Right Straight Leg Raise 45 Left Straight Leg Raise 50 Hip ROM Limitations Hip ROM Limitations Soft Tissue Tightness PT-OP-L Special Tests Start: 01/24/21 08:05 Freq: Status: Active Protocol: Document 01/24/21 09:04 [facility] (Rec: 01/28/21 08:54 [facility] [id number]) Special Tests Lumbar Spine Special Tests Adin Test Results hip flexor tightness Straight Leg Raise Test Results negative Comments hamstring tightness PT-OP-M Strength Start: 01/24/21 08:05 Freq: Status: Active Protocol: Document 01/24/21 09:04 [facility] (Rec: 01/28/21 08:54 [facility] [id number]) Hip Strength Hip Manual Muscle Testing silvana Flexion (L2) 4 Good Extension (S1) 4- Good- Abduction 4- Good- Adduction 4 Good External Rotation 4- Good- Internal Rotation 4- Good- PT-OP-T Assessment and Plan Start: 01/24/21 08:05 Freq: Status: Active Protocol: Document 05/08/21 08:34 [facility] (Rec: 05/08/21 08:35 [facility] [id number]) Physical Therapy Plan Discharge Physical Therapy Discharge Reasons Patient Request Discharge Comments Patient had made good progress toward goals and was independent with current HEP. May benefit from further PT in the future.
== END 2021-05-15 08:25 ==
LOC: PHYS 09:00
PROVIDERS: PCP Internal Medicine; Referring Provider Internal Medicine; Visit Provider Internal Medicine
DX: M54.9 Dorsalgia, unspecified (principal); R29.3 Abnormal posture; R53.1 Weakness
CPT/HCPCS: 97032; 97035; 97110; 97140; 97162; 97530; 97535

== ENCOUNTER → 2021-06-16 10:43 | Outpatient (CLI) | payer MEDICARE, SELFPAY ==
--- NOTE | 2021-06-16 10:47 | DI.RAD.S_ITS ---
PROCEDURE: XR KNEE LT 3V INDICATIONS: LEFT KNEE PAIN TECHNIQUE: 3 views of the knee were acquired. COMPARISON: None. FINDINGS: Bones: No fractures or dislocations. No suspicious bony lesions. Moderate degenerative change. Moderate medial compartment joint space loss. Tricompartment osteophytes. Soft tissues: No joint effusion. No suspicious soft tissue calcifications. IMPRESSION: Degenerative arthritis. No evidence acute bony abnormality of the left knee. If clinical suspicion and/or symptoms persist, further assessment with repeat plain films, or advanced imaging (e.g., CT, MRI, or bone scan) may be helpful for further assessment. Dictated by: Abiel Keys M.D. on 06/16/2021 at 10:40 Approved by: Abiel Keys M.D. on 06/16/2021 at 10:41
--- NOTE | 2021-06-16 10:47 | DI.RAD.S_ITS ---
PROCEDURE: XR CERVICAL SPINE 4V OR 5V INDICATIONS: NECK PAIN TECHNIQUE: 6 views of the cervical spine acquired. COMPARISON: None. FINDINGS: Bones: No fractures or dislocations to the T1 level. Oblique images demonstrate right bony foraminal narrowing at C3-C4, C5-C6, and C6-C7. There is left bony foraminal narrowing at C3-C4 and C6-C7. Multilevel cervical facet arthropathy. Multilevel disc height loss and uncovertebral joint hypertrophy. Soft tissues: No prevertebral soft tissue swelling. IMPRESSION: Diffuse cervical spondylitic change with multilevel cervical bony foraminal narrowing. No evidence acute bony abnormality of the cervical spine. If clinical suspicion and/or symptoms persist, further assessment with advanced imaging (e.g., CT, MRI, or bone scan) may be helpful for further assessment. Dictated by: Abiel Keys M.D. on 06/16/2021 at 10:38 Approved by: Abiel Keys M.D. on 06/16/2021 at 10:40
--- NOTE | 2021-06-16 10:47 | DI.RAD.S_ITS ---
PROCEDURE: XR LUMBAR SPINE MIN 4V INDICATIONS: BACK PAIN AND FEET NUMBNESS TECHNIQUE: 4 views of the lumbar spine were acquired, including bilateral oblique views. COMPARISON: [facility], , L-SPINE 2-3 VIEWS, 02/12/2007, 11:26. FINDINGS: Bones: 5 nonrib-bearing vertebrae are present. There is normal bony alignment. No vertebral body compression fractures. No suspicious bony lesions. Lower lumbar facet arthropathy. Severe disc height loss at L5-S1. Soft tissues: Overlying bowel gas pattern is normal. No suspicious soft tissue calcifications. Oblique images: No pars defects. IMPRESSION: Lumbar degenerative change. No pars defects. No evidence acute bony abnormality of the lumbar spine. If clinical suspicion and/or symptoms persist, further assessment with advanced imaging (e.g., CT, MRI, or bone scan) may be helpful for further assessment. Dictated by: Abiel Keys M.D. on 06/16/2021 at 10:41 Approved by: Abiel Keys M.D. on 06/16/2021 at 10:42
== END ==
PROVIDERS: PCP Internal Medicine; Referring Provider Physical Medicine & Rehabilitation; Visit Provider Physical Medicine & Rehabilitation
DX: M48.02 Spinal stenosis, cervical region (principal); M47.816 Spondylosis without myelopathy or radiculopathy, lumbar region; M17.12 Unilateral primary osteoarthritis, left knee; M47.812 Spondylosis without myelopathy or radiculopathy, cervical region; M54.2 Cervicalgia; M54.9 Dorsalgia, unspecified; M25.562 Pain in left knee; R20.0 Anesthesia of skin
CPT/HCPCS: 72050; 72110; 73562

== ENCOUNTER → 2021-07-23 10:32 | Outpatient (CLI) | payer MEDICARE, SELFPAY ==
[2021-07-23 13:04] LABS: COVID19 -Nasal RAPID Negative (Negative)
== END ==
PROVIDERS: PCP Internal Medicine; Referring Provider Physical Medicine & Rehabilitation; Visit Provider Physical Medicine & Rehabilitation
DX: Z01.812 Encounter for preprocedural laboratory examination (principal); Z20.822 Contact with and (suspected) exposure to COVID-19
CPT/HCPCS: 87635; C9803

== ENCOUNTER 2021-07-24 09:57 | Outpatient (CLI) | payer MEDICARE, SELFPAY ==
--- NOTE | 2021-07-24 09:59 | DI.RAD.S_ITS ---
PROCEDURE: PAIN L/S TRANSFORAMINAL INJECT INDICATIONS: SPONDYLOSIS COMPARISON: None. FINDINGS: Fluoroscopic spot filming was performed to verify placement of spinal needles at the left L5-S1 neural foramen level(s), as labeled on the films. Appropriate location(s) of the needle tip(s) was confirmed by injection of iodinated contrast. IMPRESSION: Access needle at the left L5-S1 neural foramen for transforaminal epidural steroid injection. Dictated by: Gisel Montoya MD, PhD on 07/24/2021 at 15:10 Approved by: Gisel Montoya MD, PhD on 07/24/2021 at 15:11
[2021-07-24 10:30] VITALS: BP 155/80; PULSE 67; RESP 20; TEMP 36.6; O2SAT 98
--- NOTE | 2021-07-24 10:55 | PC.NURSE ---
Patient declining IV for sedation. History of bilateral mastectomy refusing automatic BP on either arm. Attempted calf BP unsuccessfully. Inaccurate results. Manual cuff reading of 155/80. Dr. Abrams made aware, plans to take manual before and after injection per patient request.
[2021-07-24 11:24] VITALS: BP 138/90; PULSE 73; RESP 18; O2SAT 100
[2021-07-24 11:29] VITALS: PULSE 72; RESP 18; O2SAT 100
[2021-07-24] MEDS: BETAMETHASONE 30 MG/5 ML MDV 6 MG INJ (11:30)
[2021-07-24] MEDS: IOPAMIDOL 15 ML VIAL 3 ML INJ (11:30)
[2021-07-24] MEDS: BUPIVACAINE 0.25% (PF) VIAL 2 ML INJ (11:30)
[2021-07-24] MEDS: DEXAMETHASONE 10 MG/ML VIAL 20 MG INJ (11:31)
[2021-07-24 11:34] VITALS: PULSE 72; RESP 18; O2SAT 100
--- NOTE | 2021-07-24 11:39 | PM.PROC.IR.1 ---
Date/Time/Diagnoses Date of procedure: 07/24/21 Time of procedure: 11:39 Pre-procedure diagnosis: 1. FORAMINAL STENOSIS WITH LE SYMPTOMS Post-procedure diagnosis: same Procedure Notes Procedure: 1. FLUOROSCOPICALLY GUIDED CONTRAST CONTROLLED TRANSFORAMINAL EPIDURAL STEROID INJECTION - Left L5/S1 Indications: Jamee is referred by MUKUL Doty for treatment of Foraminal Stenosis with Left LE Symptoms Physician: Carlos Abrams Total Fluoroscopy time (seconds): 11 Total sedation minutes: 0 Complications: none Procedure in detail & Post-procedure care: FINDINGS Foraminal Nerve Root Compression secondary to disc disease and facet hypertrophy DESCRIPTION OF PROCEDURE Following review of allergy and review of potential side effects and complications, including, but not necessarily limited to, infection, allergic reaction, local tissue breakdown, stroke, temporary or permanent nerve injury, paralysis, and possible , the patient indicated that the patient understood and agreed to proceed. An informed consent document was signed by the patient, witnessed by a nurse, and placed in the patient's chart. Additionally, other treatment options including medications, modalities, and physical therapy were reviewed with the patient. After review of previous anaesthesic history and IV conscious sedation the patient was deemed safe to proceed with today?s procedure with IV conscious sedation as ASA class II designation. Safety time-out was performed to confirm patient ID, procedure to be performed and site of procedure. IV sedation was deemed unnecessary and thus not administered by the RN after DO order, titrated to patient comfort during the course of the procedure while the patient remained responsive to all verbal commands In the prone position following sterile prep and drape of the lumbar region, the Left L5/S1 posterior neuroforamen was identified fluoroscopically. The skin was anesthetized via a 25-gauge 1.5-inch needle with 1% lidocaine solution. At this point, a 25-gauge 3.5-inch spinal needle was atraumatically introduced and advanced under fluoroscopic guidance through the posterior Left L5/S1 neuroforamen to approximately the anterior aspect of the canal. Depth was confirmed on lateral view. Following negative aspiration, injection of approximately 1.5 cc of Isovue 200 under live fluoroscopy in the AP view confirmed excellent flow along the nerve root, into the epidural space without vascular or intrathecal uptake observed Radiological data, including multiple fluoroscopic views of the lumbosacral spine, reveal a spinal needle at the Left L5/S1 posterior neuroforamen. Subsequent views show flow of contrast material flowing superiorly and inferiorly along the nerve root confirming epidural flow. Subsequently, a test dose of 1.5 cc of 1% lidocaine solution was administered and patient was observed for two minutes for signs or symptoms of complications, including abdominal pain, shortness of breath, bilateral upper or lower extremity weakness, nausea and vomiting, prior to steroid injection. At this point, a total of 3cc or 20mg of dexamethasone and 6mg of betamethasone was injected without incident. The procedure tolerated the procedure well without signs or symptoms of complications prior to transfer to the recovery area continued monitoring without incident. The patient was then transferred to the recovery area where they were observed for an appropriate time after the injection. The patient reported a VAS score of 7 prior to the procedure and a post-procedure VAS of 0. POST OP INSTRUCTIONS The patient was provided a Pain Log to continue to record their response to the target-specific procedure prior to follow-up visit with their referring physician. Additionally, specific post-injection care instructions and a contact number to our office were provided if concerns arise regarding possible complications associated with the procedure are suspected.
[2021-07-24 11:40] VITALS: BP 145/80; PULSE 66; RESP 20; O2SAT 100
[2021-07-24 11:50] VITALS: BP 135/80; PULSE 65; RESP 18; O2SAT 99
== END 2021-07-24 11:58 | disposition home or self-care (01) ==
LOC: RAD 09:59
PROVIDERS: PCP Internal Medicine; Referring Provider Physical Medicine & Rehabilitation; Visit Provider Physical Medicine & Rehabilitation
DX: M48.07 Spinal stenosis, lumbosacral region (principal); M51.17 Intervertebral disc disorders with radiculopathy, lumbosacral region
CPT/HCPCS: 64483; 99152; J0702; J1100

== ENCOUNTER → 2023-05-28 10:26 | Outpatient (CLI) | payer MEDICARE, SELFPAY ==
[2023-05-28 11:58] LABS: Free T3, Triiodothyronine Free 3.78 pg/mL (2.77-5.27); Free T4, Direct Thyroxine 1.39 ng/dL (0.78-2.19)
[2023-05-28 12:12] LABS: TSH w/ Reflex to FT4 0.82 uIU/mL (0.47-4.68)
[2023-05-28 12:25] LABS: Alanine Aminotransferase 25 IU/L (<35); Albumin 4.1 g/dL (3.5-5.0); Albumin Globulin Ratio 1.3 (1.0-2.8); Alkaline Phosphatase 82 U/L (38-126); Aspartate Aminotransferase 31 IU/L (14-36); Bilirubin Total 1.2 mg/dL (0.2-1.3); Blood Urea Nitrogen 16 mg/dL (7-17); Calcium 9.6 mg/dL (8.4-10.2); Carbon Dioxide 27 mmol/L (22-32); Chloride 103 mmol/L (98-107); Cholesterol 207 mg/dL (140-199); Estimated Glomerular Filt Rate > 60 mL/min (>60); Globulin 3.2 g/dL (1.7-4.1); Glucose 99 mg/dL (80-110); HDL Cholesterol 49 mg/dL (40-60); HEMOLYSIS < 15 (0-50); LDL Cholesterol Calculated 134 mg/dL (<100); Magnesium 1.9 mg/dL (1.6-2.3); Potassium 4.7 mmol/L (3.4-5.1); Sodium 139 mmol/L (137-145); Total Protein 7.3 g/dL (6.3-8.2); Triglycerides 119 mg/dL (35-150)
[2023-05-30 11:26] LABS: x Labcorp Estim. Avg Glu (eAG) 114 mg/dL (.); x Labcorp Hemoglobin A1c 5.6 % (4.8-5.6)
== END ==
PROVIDERS: Family Provider Anesthesiology; PCP Family Medicine; Referring Provider Family Medicine; Visit Provider Family Medicine
DX: I10 Essential (primary) hypertension (principal); Z13.220 Encounter for screening for lipoid disorders; Z13.1 Encounter for screening for diabetes mellitus; E03.9 Hypothyroidism, unspecified; E66.9 Obesity, unspecified
CPT/HCPCS: 36415; 80053; 80061; 83036; 83735; 84439; 84443; 84481

== ENCOUNTER → 2023-07-27 10:10 | Outpatient (CLI) | payer MEDICARE, SELFPAY ==
[2023-07-27 11:03] LABS: Influenza A - CEPHEID Flu A POSITIVE (NEGATIVE); Influenza B - CEPHEID Flu B NEGATIVE (NEGATIVE); Respiratory Syncytial Virus Negative (Negative)
[2023-07-27 11:25] LABS: COVID-19 CEPHEID 4-PLEX PCR Negative (Negative)
== END ==
PROVIDERS: Family Provider Anesthesiology; PCP Family Medicine; Visit Provider Physician Assistant Medical
DX: R05.1 Acute cough (principal)
CPT/HCPCS: 0241U

== ENCOUNTER → 2023-07-27 10:31 | Outpatient (CLI) | payer MEDICARE, SELFPAY ==
--- NOTE | 2023-07-27 10:33 | DI.RAD.S_ITS ---
PROCEDURE: XR CHEST 2V INDICATIONS: Short of breath TECHNIQUE: 2 views of the chest were acquired. COMPARISON: [facility], , CHEST 2 VIEW, 02/15/2013, 13:42. FINDINGS: Surgical changes and devices: Bilateral mastectomy change is seen, with bilateral axillary and chest wall clips. Lungs and pleura: Lungs are clear. No pleural effusions or pneumothorax. Mediastinum: The cardiac contours are within normal limits. The aorta demonstrates calcification and tortuosity. Bones and chest wall: No suspicious bony abnormalities. Age-appropriate bony degenerative changes are seen. Mild dextroconvex scoliotic curvature is seen. Soft tissues appear unremarkable. IMPRESSION: No acute cardiopulmonary abnormality is seen. Postoperative and degenerative changes are seen. Dictated by: Zion Packer M.D. on 07/27/2023 at 9:55 Approved by: Zion Packer M.D. on 07/27/2023 at 9:56
== END ==
LOC: RAD 10:32
PROVIDERS: Family Provider Anesthesiology; PCP Family Medicine; Referring Provider Physician Assistant Medical; Visit Provider Physician Assistant Medical
DX: R06.02 Shortness of breath (principal); R05.1 Acute cough
CPT/HCPCS: 0241U; 71046

== ENCOUNTER → 2023-10-20 11:12 | Outpatient (CLI) | payer MEDICARE, SELFPAY ==
--- NOTE | 2023-10-20 11:12 | DI.RAD.S_ITS ---
PROCEDURE: XR DEXA AXIAL SKELETON INDICATIONS: Screening for osteoporosis COMPARISON: None. FINDINGS: Lumbar Spine: Bone mineral density 1.056 g/cm2, T score 0.1. Left Hip: Bone mineral density 0.959 g/cm2, T score 0.1. Left Femoral Neck: Bone mineral density 0.782 g/cm2, T score -0.6. Right Hip: Bone mineral density 0.982 g/cm2, T score 0.3. Right Femoral Neck: Bone mineral density 0.791 g/cm2, T score -0.5. Fracture Risk Calculation (when applicable): Not applicable (T score greater or equal to -1.0 to: NORMAL) (T score from -1.1 to -2.4: OSTEOPENIA) (T score less than or equal to -2.5: OSTEOPOROSIS) IMPRESSION: Normal bone mineral density. Follow-up guidelines as follows: Osteoporosis: Consider a repeat DEXA and Vertebral Fracture Assessment (VFA) exam in 2 years or sooner if medically necessary, to reassess this patient's status. Osteopenia: Consider a repeat DEXA in 2-3 years to reassess this patient's status, or if there is a new clinical indication. Normal: Consider a repeat DEXA in 5 years or sooner, or if there is a new clinical indication. All treatment decisions require clinical judgment and consideration of individual patient factors, including patient preferences, comorbidities, previous drug use, risk factors not captured in the FRAX model (e.g., frailty, falls, vitamin D deficiency, increased bone turnover, interval significant decline in bone density ) and possible under- or over-estimation of fracture risk by FRAX. In addition, the NOF Guide recommends that FDA-approved medical therapies be considered in postmenopausal women and men age >= 50 years with a: * Hip or vertebral (clinical or morphometric) fracture * T-score of <=-2.5 at the spine or hip * Ten-year fracture probability by FRAX of >= 3% for hip fracture or >=20% for major osteoporotic fracture. People with diagnosed cases of osteoporosis or at high risk for fracture should have regular bone mineral density tests. For patients eligible for Medicare, routine testing is allowed once every 2 years. The testing frequency can be increased to one year for patients who have rapidly progressing disease, those who are receiving or discontinuing medical therapy to restore bone mass, or have additional risk factors. Dictated by: Reinaldo Stout M.D. on 10/20/2023 at 12:49 Approved by: Reinaldo Stout M.D. on 10/20/2023 at 13:03
== END ==
LOC: RAD 11:12
PROVIDERS: Family Provider Anesthesiology; PCP Family Medicine; Referring Provider Family Medicine; Visit Provider Family Medicine
DX: M85.89 Other specified disorders of bone density and structure, multiple sites (principal)
CPT/HCPCS: 77080

== ENCOUNTER → 2024-01-13 10:47 | Outpatient (CLI) | payer MEDICARE, SELFPAY ==
--- NOTE | 2024-01-13 14:50 | ST.SWALLOW ---
Visit Care Team Role Provider Type Edvin Stone MD Family Provider Physician Specialty: Anesthesiology Interventional Radiology Pain Management Address: [address] [place], [address] Email: [email or web address] DO Attending Provider Physician Primary Care Provider Referring Provider Specialty: Family Practice Address: [address] [place] [address], [address], [place], [address] Email: [email or web address] Modified Barium Swallow Study [employer] Modified Barium Swallow Study Start: 01/13/24 10:33 Freq: Status: Active Protocol: Document 01/13/24 14:10 [facility] (Rec: 01/13/24 14:50 [facility] [id number]) Modified Barium Swallow Study Total Time Visit Start Time 11:00 Visit Stop Time 11:30 Total Visit Minutes [address] Mtz Setting Setting Outpatient Care Patient Information Identification Type Name,Date of Patient History Pt was seen for a Modified Barium Swallow Study. Pt cd/o a sensation of occasional food being stuck or not swallowing all the way. She noted that she feels foods get stuck near her sternal area. Pt denies GERD, neurological diagnoses, or neck/cervical injury or surgery. She denies any vomiting or regurgitation issues or any issue with swallowing liquids. Pt noted that this difficulty began approximately 2 years ago. She described an incident after which she had swallowed 2 large pills together and she could not swallow them. EMT was called as pt could breath through her nose, but not through her mouth. Subjective Observations Pt was seated in the fluoroscopy chair with directions and procedures described for her. She indicated she understood and agreed to proceed. Patient Positioning Position View Lat-A/P Imaging Lateral View Textures Administered Trials Presented Thin Liquid via Spoon (IDDSI 0 ),Thin Liquid via Cup (IDDSI 0 ),Moderately Thick Liquid via Spoon (IDDSI 3),Soft & Bite- sized (IDDSI,Regular (IDDSI 7) Barium Tablet Yes The IDDSI Framework Protocol: IDDSI.1 Oral Impairment Source: The Modified Barium Swallow Impairment Profile (MBSImP??) Lip Closure No labial escape Tongue Control During Bolus Hold Cohesive bolus between tongue to palatal seal Bolus Preparation/Mastication Timely & efficient chewing & mashing Bolus Transport/Lingual Motion Brisk tongue motion Oral Residue Complete oral clearance Initiation of Pharyngeal Swallow Bolus head at posterior laryngeal surface of epiglottis Additional Oral Impairment Observations *OME and DKS were observed to be WNL. *Dentition natural and in good hygiene *Mastication observed with rotary chew pattern. *Good bolus formation, control and AP transition. Oral phase of swallow WNL Pharyngeal Impairment Source: The Modified Barium Swallow Impairment Profile (MBSImP??) Soft Palate Elevation No bolus between soft palate & pharyngeal wall Laryngeal Elevation Comp.sup.move.thyroid cart.w/ comp.approx.arytenoids to epiglot petiole Anterior Hyoid Excursion Complete anterior movement Epiglottic Movement Complete inversion Laryngeal Vestibular Closure Complete; no air/contrast in laryngeal vestibule Pharyngeal Stripping Wave Present - complete Pharyngoesophageal Segment Opening Partial distention/partial duration; partial obstruction of flow Tongue Base Retraction No contrast between tongue base & posterior pharyngeal wall Pharyngeal Residue Complete pharyngeal clearance Additional Pharyngeal Impairment *C6-C7 protrusion of the Observations cervical spine, altering and narrowing the shape of the upper esophagus as well as reducing the extension of the UES opening. All trials passed to the stomach. *Potential concern for large capsules/ boluses (breads, meats, etc.) becoming stuck in the UES area. Note: barium tablet cleared esophagus to the stomach in a timely manner *Recommended medications 1 pill at a time with possible use of a carrier (yogurt, applesauce , etc.) to ease swallow. A/P View The IDDSI Framework Protocol: IDDSI.1 A/P View Observations Pharyngeal Contraction Complete Esophageal Clearance Upright Position Esophageal retention Vocal Fold Function Good Esophageal Function Slowed Clearing Additional A-P Observations Slow clearing of solid food trials. Water wash was able to clear esophagus of residue. Barium tablet swallowed in a timely manner. Clinical Impressions Dysphagia Type WNL Findings Overall, oral, pharyngeal and esophageal swallow phased observed to be WNL. Narrowing of the UES observed secondary to cervical spine protrusion. This narrowing of UES opening could interfere with swallowing large or multiple capsules/supplements. *Recommended medications 1 pill at a time with possible use of a carrier (yogurt, applesauce , etc.) to ease swallow. Patient Appropriate for Therapy No Recommendations Diet Comments no change in diet recommended Aspiration Precautions Recommended Precautions Alternate Liquids/Solids Additional Precautions chew well, alternate liquids and solids to ease bolus flow Treatment Plan Therapy Strategy Recommendations Alternate Liquids/Solids
[2024-01-14 17:16] LABS: Fecal Immunochemical Test Negative (Negative)
[2024-01-16 14:36] LABS: Estrogen 99 pg/mL (40-244)
== END ==
PROVIDERS: Family Provider Anesthesiology; PCP Family Medicine; Referring Provider Family Medicine; Visit Provider Family Medicine
DX: R13.10 Dysphagia, unspecified (principal); L65.9 Nonscarring hair loss, unspecified; Z92.21 Personal history of antineoplastic chemotherapy; Z80.0 Family history of malignant neoplasm of digestive organs
CPT/HCPCS: 36415; 74230; 82274; 82672; 84144; 84999; 92611

== ENCOUNTER → 2024-02-12 15:07 | Outpatient (CLI) | payer MEDICARE, SELFPAY ==
[2024-02-14 13:10] LABS: Candida species Negative (Negative); Gardnerella vaginalis Positive (Negative); Trichomoas vaginalis Negative (Negative)
== END ==
PROVIDERS: Family Provider Anesthesiology; PCP Family Medicine; Visit Provider Specialist
DX: N89.8 Other specified noninflammatory disorders of vagina (principal); N95.2 Postmenopausal atrophic vaginitis
CPT/HCPCS: 87480; 87510; 87660

== ENCOUNTER → 2024-03-25 13:22 | Outpatient (CLI) | payer MEDICARE, SELFPAY ==
[2024-03-26 14:38] LABS: Candida species Negative (Negative); Gardnerella vaginalis Negative (Negative); Trichomoas vaginalis Negative (Negative)
== END ==
PROVIDERS: Family Provider Anesthesiology; PCP Family Medicine; Visit Provider Obstetrics & Gynecology
DX: N89.8 Other specified noninflammatory disorders of vagina (principal)
CPT/HCPCS: 87480; 87510; 87660

== ENCOUNTER → 2024-04-15 23:27 | Outpatient (ROUT) | payer MEDICARE, SELFPAY ==
[2024-04-17 13:08] LABS: Candida species Negative (Negative); Gardnerella vaginalis Negative (Negative); Trichomoas vaginalis Negative (Negative)
== END ==
PROVIDERS: Family Provider Anesthesiology; PCP Family Medicine; Visit Provider Obstetrics & Gynecology
DX: N89.8 Other specified noninflammatory disorders of vagina (principal)
CPT/HCPCS: 87480; 87510; 87660

== ENCOUNTER → 2024-07-30 12:19 | Outpatient (CLI) | payer MEDICARE, SELFPAY ==
[2024-07-30 13:18] LABS: Appearance Urine UA CLEAR; Bilirubin Urine UA NEGATIVE (NEGATIVE); Color Urine UA YELLOW; Glucose Urine UA NEGATIVE (Negative); Ketones Urine UA NEGATIVE (NEGATIVE); Leukocyte Esterase Urine UA NEGATIVE (NEGATIVE); Nitrite Urine UA NEGATIVE (Negative); Occult Blood Urine UA NEGATIVE (Negative); Protein Urine UA NEGATIVE (Negative); Specific Gravity Urine UA 1.025 (1.000-1.035); Urobilinogen Urine UA 0.2 E.U./dL (0.2)
[2024-07-30 13:34] LABS: pH Urine UA 5.5 (4.5-8.0)
[2024-07-30 13:39] LABS: Bacteria Urine None Seen; Culture Indicated Urine Cult Not Indicated; Mucus Urine 1+ (Negative); RBC Urine None Seen (0-5/HPF); Squamous Epithelial Cell Urine 0-1 /HPF (0-5/HPF); Urine Volume 10mL (spun); WBC Urine None Seen (0-5/HPF)
[2024-07-30 14:25] LABS: Free T4, Direct Thyroxine 1.51 ng/dL (0.78-2.19)
== END ==
PROVIDERS: Family Provider Anesthesiology; PCP Family Medicine; Referring Provider Family Medicine; Visit Provider Family Medicine
DX: E03.9 Hypothyroidism, unspecified (principal); N90.5 Atrophy of vulva; N90.89 Other specified noninflammatory disorders of vulva and perineum; N95.2 Postmenopausal atrophic vaginitis; R30.0 Dysuria
CPT/HCPCS: 36415; 81001; 84439; 84443

== ENCOUNTER → 2024-10-12 15:29 | Outpatient (CLI) | payer MEDICARE, SELFPAY ==
[2024-10-12 18:53] LABS: TSH w/ Reflex to FT4 0.81 uIU/mL (0.47-4.68)
== END ==
PROVIDERS: PCP Family Medicine; Referring Provider Family Medicine; Visit Provider Family Medicine
DX: E03.9 Hypothyroidism, unspecified (principal)
CPT/HCPCS: 36415; 84443

== ENCOUNTER 2025-02-03 14:30 | Outpatient (RCR) | payer MEDICARE, SELFPAY ==
--- NOTE | 2024-11-15 17:24 | PT.OIE ---
Current Diagnoses Lymphedema, not elsewhere classified (11/15/24) Bilateral primary osteoarthritis of knee (11/15/24) Unequal limb length (acquired), unspecified site (11/15/24) Scoliosis, unspecified (11/15/24) Radiculopathy, lumbar region (11/15/24) Past Medical History (Last Updated 01/29/24 @ 13:52 by Renata Mtz DO) Chicken pox Degenerative joint disease of both hips DJD (degenerative joint disease) of knee Facet arthritis of lumbar region Facet arthropathy, cervical Foot pain History of breast cancer Hypothyroidism Lumbar radiculopathy Measles Mumps Rheumatic fever Right foot pain Thoracic scoliosis Past Surgical History (Last Updated 06/09/23 @ 19:47 by Loretta Devine) Anesthesia History of breast surgery (~2005) History of knee surgery (~2021) History of thyroid surgery (~1989) Visit Care Team Role Provider Type Renata Mtz DO Attending Provider Physician Family Provider Primary Care Provider Referring Provider Specialty: [facility] Practice Address: [address] [place] [address], [address], [facility] Email: [email or web address] Physical Therapy Initial Evaluation PT-OP-A Visit Information Start: 11/15/24 08:11 Freq: Status: Active Protocol: Document 11/15/24 13:01 [facility] (Rec: 11/15/24 17:21 SAK Laptop) Out-Patient Physical Therapy Visit Information Visit Information Visit Type Initial Evaluation Visit Start Time 13:01 Visit Stop Time 14:00 Visit Number 1 Evaluation Information Evaluation Date 11/15/24 Precautions Precautions COLBERT, HTN PT-OP-B Current Condition Start: 11/15/24 08:11 Freq: Status: Active Protocol: Document 11/15/24 13:01 [facility]AK (Rec: 11/15/24 17:21 SAK Laptop) Current Condition History of Current Condition Onset Date 20 yrs Current Complaints lymphedema chest, thorax, silvana UE's, tightness chest and ribcage/upper back History of Current 20 years ago had bilateral mastectomies followed by Condition chemo and radiation. States she developed lymphedema immediately. Had some treatment at that time, then lymphedema treatment again a few years ago. Has continued to wear custom silvana UE compression sleeves as well as compression shirt. Despite this she has difficulty managing her lymphedema and also reports tightness and decreased mobility throughout her chest and thorax, reporting she has difficulty taking deep breaths into her chest and feels very tight. Prior Treatments and As above Tests Future Testing and Having MRI of head today due to reported severe COLBERT Treatments Planned Treatment Goals Patient/Caregiver Improve mobility of upper back, chest, and ribs. Be Goals able to better manage her lymphedema PT-OP-C Subjective Start: 11/15/24 08:11 Freq: Status: Active Protocol: Document 11/15/24 13:01 [facility] (Rec: 11/15/24 17:21 [facility] Laptop) Patient Questionnaires Lymphedema Life Impact Score Lymphedema Score 44 PT-OP-F Manual Assessment Start: 11/15/24 08:11 Freq: Status: Active Protocol: Document 11/15/24 13:01 [facility] (Rec: 11/15/24 17:21 [facility] Laptop) Manual Assessments Soft Tissue Assessment Soft Tissue Mobility decreased soft tissue mobility of mastectomy scars, silvana Assessment UE's and lateral trunks (subaxillary) with lymphedema. Joint Mobility Assessment Joint Mobility decreased rib mobility throughout Assessment PT-OP-J Posture/Palpation/Skin Start: 11/15/24 08:11 Freq: Status: Active Protocol: Document 11/15/24 13:01 [facility] (Rec: 11/15/24 17:21 [facility] Laptop) Posture Evaluation Position Standing Head/C-Spine Posture Forward Head T-Spine Posture Increased Kyphosis L-Spine Posture Increased Lordosis Shoulder Posture (L) Rounded,(R) Rounded Scapula Posture (L) Protracted,(R) Protracted Arm Posture (L) Internally Rotated,(R) Internally Rotated Palpation Assessment Location mastectomy scars Palpation Findings Soft Tissue Tightness,Tenderness Skin Assessment Incisional Assessment Incision Appearance/ well healed, no discoloration Comments PT-OP-K Range of Motion Start: 11/15/24 08:11 Freq: Status: Active Protocol: Document 11/15/24 13:01 [facility] (Rec: 11/15/24 17:21 [facility] Laptop) Cervical Spine Range of Motion Cervical Spine Active Testing Position Sitting ROM Limitations Soft Tissue Tightness,Bony Restriction Comments Pt. reports OA Lumbar Spine Range of Motion Lumbar Spine Active Comments WFL, HS tightness with FF Shoulder Goniometric Range of Motion Shoulder silvana Shoulder ROM WFL Yes Shoulder ROM Limitations Shoulder ROM Soft Tissue Tightness Limitations PT-OP-L Special Tests Start: 11/15/24 08:11 Freq: Status: Active Protocol: Document 11/15/24 13:01 [facility] (Rec: 11/15/24 17:21 [facility] Laptop) Special Tests Other Special Tests Special Tests Stemmer sign: + silvana UE's PT-OP-N Lymphedema Start: 11/15/24 08:11 Freq: Status: Active Protocol: Document 11/15/24 13:01 [facility] (Rec: 11/15/24 17:23 [facility] Laptop) Lymphedema Measurements Upper Extremity Circumference Measurements Right Affected - circumferential measurements taken but lost due to computer glitch Left Affected - circumferential measurements taken but lost due to computer glitch PT-OP-Q Treatments Start: 11/15/24 08:11 Freq: Status: Active Protocol: Document 11/15/24 13:01 [facility] (Rec: 11/15/24 17:21 [facility] Laptop) Therapeutic Exercises Supine Exercises deep breathing Supine Exercise Name ant chest, lateral thorax, post thorax Side bilateral Resistance manual Reps/Minutes 5 min Comments verbal and tactile cues Sidelying Exercises open book Side bilateral Reps/Minutes 2x60 Comments verbal and tactile cues Standing Exercises wall posture Reps/Minutes 4 min Comments verbal and tactile cues Other Exercises cat/cow Side bilateral Reps/Minutes quadriped, then seated 3x ea Comments wrist discomfort quadriped on plinth Self-Care/Home Management Treatment Education Patient Education Home Exercise Program,Posture Activities Self-Care/Home needs to order new compression sleeves Management Activities Lymphedema Treatment Lymphedema Wrapping Other Patient wearing custom compression sleeves and compression shirt. Time restrictions at eval Compression Garment Assessment Compression Garment Fair fit noted, needs replacement Assessment Details Patient Education Other importance of postural alignment, improved scar mobility, improved rib mobility and chest flexibility for improved lymphatic flow PT-OP-T Assessment and Plan Start: 11/15/24 08:11 Freq: Status: Active Protocol: Document 11/15/24 13:01 [facility] (Rec: 11/15/24 17:21 [facility] Laptop) Physical Therapy Assessment Rehab Potential Rehabilitation Good Potential Evaluation Complexity Number of Personal 1-2 Factors/ Comorbidities Number of Body 3 Systems Impaired Clinical Evolving Presentation at Evaluation Impairments Impairments Edema,Posture,Soft Tissue Mobility Goals Four Impairment lymphedema life impact scale44% Ornamental Metal Erector Apprentice Goal (LTG) Decrease lymphedema life impact scale to no greater than 20% as measure of improved self management and function. LTG Duration 02/15/25 Three Impairment Impaired posture and thoracic mobility restricting movement and breathing Ornamental Metal Erector Apprentice Goal (LTG) Improve postural alignment thoracic mobility to WNL to allow patient to return to prior level of function including ability to breath deeply into chest. Patient to be independent and compliant with exercises for postural corection and thoracic mobility. LTG Duration 02/15/25 Two Impairment decreased scar mobility Ornamental Metal Erector Apprentice Goal (LTG) Improve mastectomy scar moblity to WNL for improved brething and function LTG Duration 02/15/25 One Impairment lymphedema Short Term Goal (STG Review all aspects of lymphedema self care to include ) elevation, skin care, manual lymphatic drainage, lymphedema exercises, and appropriate compresssion STG Duration 12/16/24 [facility] Goal (LTG) Patient to be independent and compliant with all aspects of lymphedema care as above and obtain appropriate compression garments for long-term management. LTG Duration 02/15/25 Assessment Summary Assessment Patient presents to PT with c/o tightness and stiffness throughout chest and ribcage/thoracic spine which she states makes it difficult to take a breath. She does have impairments in thoracic ROM and mobility, decreased soft tissue mobility of mastectomy scars, postural impairment. She needs replacement compression garments and is working with [facility] in [place] for this. Feel she would benefot from physical therapy to address above impairments and help her to return to her previously very active lifestyle. She is highly motivated. POC was discussed and she is in agreement. Physical Therapy Plan Frequency and Duration Frequency of 20 Treatment Duration of 12 treatment (weeks) Plan of Care Start 11/15/24 Date Plan of Care End 02/15/25 Date Therapeutic Interventions Therapeutic Home Exercise Program,Joint Mobilizations,Lymphedema Interventions Management,Manual Therapy,Patient/Caregiver Education, Self-Care/Home Management,Soft Tissue Mobilization, Therapeutic Activities,Therapeutic Exercises Modalities Vasopneumatic Devices Next Visit Focus/Plan Next Note Type Treatment Note Next Visit Plan Initiate MLD, provide gentle ribcage mobilization, ther ex for thoracic mobility including breathing exercises with gentle resistance. Postural education and correction activities.
--- NOTE | 2024-11-15 17:24 | PT.OPPOC ---
Physical, Occupational & Speech Therapy At [facility] Current Diagnoses Lymphedema, not elsewhere classified (11/15/24) Bilateral primary osteoarthritis of knee (11/15/24) Unequal limb length (acquired), unspecified site (11/15/24) Scoliosis, unspecified (11/15/24) Radiculopathy, lumbar region (11/15/24) Visit Care Team Role Provider Type Renata Mtz DO Attending Provider Physician Family Provider Primary Care Provider Referring Provider Specialty: Family Practice Address: [address] [place] [address], [address], [place], [facility] Email: [email or web address] Plan Of Care PT-OP-B Current Condition Start: 11/15/24 08:11 Freq: Status: Active Protocol: Document 11/15/24 13:01 [facility] (Rec: 11/15/24 17:21 [facility] Laptop) Current Condition History of Current Condition Onset Date 20 yrs Current Complaints lymphedema chest, thorax, silvana UE's, tightness chest and ribcage/upper back History of Current 20 years ago had bilateral mastectomies followed by Condition chemo and radiation. States she developed lymphedema immediately. Had some treatment at that time, then lymphedema treatment again a few years ago. Has continued to wear custom silvana UE compression sleeves as well as compression shirt. Despite this she has difficulty managing her lymphedema and also reports tightness and decreased mobility throughout her chest and thorax, reporting she has difficulty taking deep breaths into her chest and feels very tight. Prior Treatments and As above Tests Future Testing and Having MRI of head today due to reported severe COLBERT Treatments Planned Treatment Goals Patient/Caregiver Improve mobility of upper back, chest, and ribs. Be Goals able to better manage her lymphedema PT-OP-T Assessment and Plan Start: 11/15/24 08:11 Freq: Status: Active Protocol: Document 11/15/24 13:01 [facility] (Rec: 11/15/24 17:21 [facility] Laptop) Physical Therapy Assessment Rehab Potential Rehabilitation Good Potential Evaluation Complexity Number of Personal 1-2 Factors/ Comorbidities Number of Body 3 Systems Impaired Clinical Evolving Presentation at Evaluation Impairments Impairments Edema,Posture,Soft Tissue Mobility Goals Four Impairment lymphedema life impact scale44% Nursing Home Goal (LTG) Decrease lymphedema life impact scale to no greater than 20% as measure of improved self management and function. LTG Duration 02/15/25 Three Impairment Impaired posture and thoracic mobility restricting movement and breathing Jewelry Consultant Goal (LTG) Improve postural alignment thoracic mobility to WNL to allow patient to return to prior level of function including ability to breath deeply into chest. Patient to be independent and compliant with exercises for postural corection and thoracic mobility. LTG Duration 02/15/25 Two Impairment decreased scar mobility Nursing Home Goal (LTG) Improve mastectomy scar moblity to WNL for improved brething and function LTG Duration 02/15/25 One Impairment lymphedema Short Term Goal (STG Review all aspects of lymphedema self care to include ) elevation, skin care, manual lymphatic drainage, lymphedema exercises, and appropriate compresssion STG Duration 12/16/24 Nursing Home Goal (LTG) Patient to be independent and compliant with all aspects of lymphedema care as above and obtain appropriate compression garments for long-term management. LTG Duration 02/15/25 Assessment Summary Assessment Patient presents to PT with c/o tightness and stiffness throughout chest and ribcage/thoracic spine which she states makes it difficult to take a breath. She does have impairments in thoracic ROM and mobility, decreased soft tissue mobility of mastectomy scars, postural impairment. She needs replacement compression garments and is working with [facility] in [place] for this. Feel she would benefot from physical therapy to address above impairments and help her to return to her previously very active lifestyle. She is highly motivated. POC was discussed and she is in agreement. Physical Therapy Plan Frequency and Duration Frequency of 20 Treatment Duration of 12 treatment (weeks) Plan of Care Start 11/15/24 Date Plan of Care End 02/15/25 Date Therapeutic Interventions Therapeutic Home Exercise Program,Joint Mobilizations,Lymphedema Interventions Management,Manual Therapy,Patient/Caregiver Education, Self-Care/Home Management,Soft Tissue Mobilization, Therapeutic Activities,Therapeutic Exercises Modalities Vasopneumatic Devices Next Visit Focus/Plan Next Note Type Treatment Note Next Visit Plan Initiate MLD, provide gentle ribcage mobilization, ther ex for thoracic mobility including breathing exercises with gentle resistance. Postural education and correction activities. Plan of Care Dates Plan of Care Start Date 11/15/24 Plan of Care End Date 02/15/25 Electronically Signed by: Cari Lopez, PT 11/15/24 7414 If you are in agreement with this Plan of Care, please return a signed and dated copy. I have reviewed this Plan of Care and certify that the skilled therapy services above are required to meet the patient?s needs. Physician Signature Date Printed Name and Credentials Clinical Instructor Signature Printed Name and Credentials
--- NOTE | 2024-11-18 12:25 | PT.OTN ---
Current Diagnoses Lymphedema, not elsewhere classified (11/18/24) Bilateral primary osteoarthritis of knee (11/18/24) Unequal limb length (acquired), unspecified site (11/18/24) Scoliosis, unspecified (11/18/24) Radiculopathy, lumbar region (11/18/24) Physical Therapy Treatment Note PT OP: Lymphedema Upper Extremity Start: 11/18/24 10:41 Freq: Status: Active Protocol: Document 11/18/24 10:42 [facility] (Rec: 11/18/24 11:20 [facility] Laptop) Out-Patient Physical Therapy Visit Information Visit Information Visit Type Treatment Note Visit Start Time 10:45 Visit Stop Time 12:09 Visit Number 2 OP-PT Subjective Patient Comments Patient Comments No new c/o. Went to MELT class at [employer] and [employer], used foam roller; reports sore but good . Foam roller both horizontal and vertical on spine. Wants strong tissue stretching to free up her chest and ribcage Manual Assessments Soft Tissue Assessment Soft Tissue Mobility decreased soft tissue mobility of mastectomy scars, silvaan Assessment UE's and lateral trunks (subaxillary) with lymphedema. Therapeutic Exercises Supine Exercises T,Y,I,W stretch Side bilateral Equipment Used foam roller vertical on spine Reps/Minutes 8 min Sidelying Exercises lateral stretch Sidelying Exercise arm overhead Name Equipment Used Dycem Reps/Minutes 2x60 Comments with manual tissue stretch subaxillary open book Side bilateral Reps/Minutes 2x60 Comments verbal and tactile cues, manual stretching end range Other Exercises cat/cow Side bilateral Reps/Minutes quadriped 5x Manual Therapy Treatment Consent Patient gave verbal Yes consent for manual treatment Soft Tissue Mobilization thoracic ext Mobilization Type Instrument Assisted Body Position Hooklying Comments pillows under head, mid thoracic spine with foam roller horizontal on spine subax,lat trunk Mobilization Type Myofascial Release Body Position Sidelying Comments arm overhead, incorporate deep breathing chest, incision Mobilization Type Cross-Friction,Instrument Assisted,Myofascial Release Comments suction, dycem Self-Care/Home Management Treatment Education Patient Education Home Exercise Program Other Education isued written HO Physical Therapy Assessment Goals Four Impairment lymphedema life impact scale44% Marketing Associate Goal (LTG) Decrease lymphedema life impact scale to no greater than 20% as measure of improved self management and function. LTG Duration 02/15/25 Three Impairment Impaired posture and thoracic mobility restricting movement and breathing Marketing Associate Goal (LTG) Improve postural alignment thoracic mobility to WNL to allow patient to return to prior level of function including ability to breath deeply into chest. Patient to be independent and compliant with exercises for postural corection and thoracic mobility. LTG Duration 02/15/25 Two Impairment decreased scar mobility [facility]iary Goal (LTG) Improve mastectomy scar moblity to WNL for improved brething and function LTG Duration 02/15/25 One Impairment lymphedema Short Term Goal (STG Review all aspects of lymphedema self care to include ) elevation, skin care, manual lymphatic drainage, lymphedema exercises, and appropriate compresssion STG Duration 12/16/24 Marketing Associate Goal (LTG) Patient to be independent and compliant with all aspects of lymphedema care as above and obtain appropriate compression garments for long-term management. LTG Duration 02/15/25 Assessment Summary Assessment Patient frequently asking for increased intensity of stretch with MFR, use of Dycem with good antonia and response increased soft tissue mobility with treatment. Issued written HEP with patient demonstrating good understanding Physical Therapy Plan Frequency and Duration Frequency of 20 Treatment Duration of 12 treatment (weeks) Plan of Care Start 11/15/24 Date Plan of Care End 02/15/25 Date Next Visit Focus/Plan Next Note Type Treatment Note Next Visit Plan Review HEP, assess response to last session and progress as indicated, MLD after deep soft tissue work
--- NOTE | 2024-11-25 17:02 | PT.OTN ---
Current Diagnoses Lymphedema, not elsewhere classified (11/25/24) Bilateral primary osteoarthritis of knee (11/25/24) Unequal limb length (acquired), unspecified site (11/25/24) Scoliosis, unspecified (11/25/24) Radiculopathy, lumbar region (11/25/24) Physical Therapy Treatment Note PT OP: Lymphedema Upper Extremity Start: 11/18/24 10:41 Freq: Status: Active Protocol: Document 11/25/24 13:01 [facility] (Rec: 11/25/24 13:30 [facility] Laptop) Out-Patient Physical Therapy Visit Information Visit Information Visit Type Treatment Note Visit Start Time 13:01 Visit Stop Time 14:20 Visit Number 3 OP-PT Subjective Patient Comments Patient Comments States she has been waking up with headaches, BP has been high, thinking sleep apnea; is going to have a sleep study. Has been to 2 more MELT classes, going to have private lesson soon. Decreased edema after manual work in PT first session; notes increased wrinkles or creapy skin on UE's. Wants emphasis manual work to improve soft tissue mobility and imrove breathing, blames compression shirt for pulling her body/chest forward, rounded. Palpation Assessment Location mastectomy scars Palpation Findings Soft Tissue Tightness,Tenderness Therapeutic Exercises Supine Exercises T,Y,I,W stretch Equipment Used therapy ball 55 cm on yoga mat Reps/Minutes 60 sec Comments mod assist for safety on ball Sidelying Exercises lateral stretch Sidelying Exercise arm overhead Name Equipment Used Dycem Reps/Minutes 2x60 Comments with manual tissue stretch subaxillary open book Side bilateral Reps/Minutes 2x60 Comments verbal and tactile cues, manual stretching end range Standing Exercises wall posture Reps/Minutes 3 min Comments cues for sequencing, neutral alignment Manual Therapy Treatment Soft Tissue Mobilization inf ribs Mobilization Type Sustained Pressure Intensity/Depth Moderate Comments along inf ribcage with deep breathing subax,lat trunk Mobilization Type Instrument Assisted,Myofascial Release Intensity/Depth Moderate Body Position Sidelying Comments arm overhead, incorporate deep breathing, use of Dycem multiple angles with 90 sec holds chest, incision Mobilization Type Cross-Friction,Instrument Assisted,Myofascial Release Intensity/Depth Moderate Comments dycem, multiple angles dycem under each hand with 90 holds Physical Therapy Assessment Goals Four Impairment lymphedema life impact scale44% Shoe Maker Goal (LTG) Decrease lymphedema life impact scale to no greater than 20% as measure of improved self management and function. LTG Duration 02/15/25 Three Impairment Impaired posture and thoracic mobility restricting movement and breathing [facility]iary Goal (LTG) Improve postural alignment thoracic mobility to WNL to allow patient to return to prior level of function including ability to breath deeply into chest. Patient to be independent and compliant with exercises for postural corection and thoracic mobility. LTG Duration 02/15/25 Two Impairment decreased scar mobility Shoe Maker Goal (LTG) Improve mastectomy scar moblity to WNL for improved brething and function LTG Duration 02/15/25 One Impairment lymphedema Short Term Goal (STG Review all aspects of lymphedema self care to include ) elevation, skin care, manual lymphatic drainage, lymphedema exercises, and appropriate compresssion STG Duration 12/16/24 [facility]itentiary Goal (LTG) Patient to be independent and compliant with all aspects of lymphedema care as above and obtain appropriate compression garments for long-term management. LTG Duration 02/15/25 Assessment Summary Assessment Patient frequently during session requested increased intensity of stretch, good tolerance with improved soft tissue mobility noted end of session all areas with patient reporting improved mobility. Much difficulty getting up from therapy ball; required mod assist. Sat up due to c/o low back discomfort. Physical Therapy Plan Frequency and Duration Frequency of 20 Treatment Duration of 12 treatment (weeks) Plan of Care Start 11/15/24 Date Plan of Care End 02/15/25 Date Next Visit Focus/Plan Next Note Type Treatment Note Next Visit Plan Review HEP, assess response to last session and progress as indicated, increase use of cupping. MLD after deep soft tissue work
--- NOTE | 2024-12-20 12:21 | PT.OTN ---
Current Diagnoses Lymphedema, not elsewhere classified (12/20/24) Bilateral primary osteoarthritis of knee (12/20/24) Unequal limb length (acquired), unspecified site (12/20/24) Scoliosis, unspecified (12/20/24) Radiculopathy, lumbar region (12/20/24) Physical Therapy Treatment Note PT OP: Lymphedema Upper Extremity Start: 11/18/24 10:41 Freq: Status: Active Protocol: Document 12/20/24 10:39 SAK (Rec: 12/20/24 11:06 SAK Laptop) Out-Patient Physical Therapy Visit Information Visit Information Visit Type Treatment Note Visit Note Insurance approves only 6 PT appointments at this time Visit Start Time 10:45 Visit Stop Time 12:15 Visit Number 4 OP-PT Subjective Patient Comments Patient Comments Reports her fascia continues to feel so tight, and loosens then goes right back, continued difficulty with breathing due to fascial tightnessa Therapeutic Exercises Supine Exercises deep breathing Supine Exercise Name ant chest, lateral thorax, post thorax Side bilateral Resistance manual Reps/Minutes 5 min Comments verbal and tactile cues Prone Exercises prone over therapy ball Equipment Used 55 cm Reps/Minutes 5 min Comments with deep tissue work lumbar paraspinals Sidelying Exercises lateral stretch Sidelying Exercise arm overhead Name Equipment Used Dycem Reps/Minutes 2x60 Comments with manual tissue stretch subaxillary Manual Therapy Treatment Soft Tissue Mobilization inf ribs Mobilization Type Sustained Pressure Intensity/Depth Moderate Comments along inf ribcage with deep breathing thoracic ext Mobilization Type Instrument Assisted Body Position Hooklying Comments pillows under head, mid thoracic spine with foam roller horizontal on spine subax,lat trunk Mobilization Type Instrument Assisted,Myofascial Release Intensity/Depth Moderate Body Position Sidelying Comments arm overhead, incorporate deep breathing, use of Dycem multiple angles with 90 sec holds chest, incision Mobilization Type Instrument Assisted,Myofascial Release Intensity/Depth Moderate Comments large suction tool Physical Therapy Assessment Goals Four Impairment lymphedema life impact scale44% Creel Selector Goal (LTG) Decrease lymphedema life impact scale to no greater than 20% as measure of improved self management and function. LTG Duration 02/15/25 Three Impairment Impaired posture and thoracic mobility restricting movement and breathing Creel Selector Goal (LTG) Improve postural alignment thoracic mobility to WNL to allow patient to return to prior level of function including ability to breath deeply into chest. Patient to be independent and compliant with exercises for postural corection and thoracic mobility. LTG Duration 02/15/25 Two Impairment decreased scar mobility Creel Selector Goal (LTG) Improve mastectomy scar moblity to WNL for improved brething and function LTG Duration 02/15/25 One Impairment lymphedema Short Term Goal (STG Review all aspects of lymphedema self care to include ) elevation, skin care, manual lymphatic drainage, lymphedema exercises, and appropriate compresssion STG Duration 12/16/24 Skilled Nursing Goal (LTG) Patient to be independent and compliant with all aspects of lymphedema care as above and obtain appropriate compression garments for long-term management. LTG Duration 02/15/25 Assessment Summary Assessment Improved soft tissue moblity with manual techniques, good antonia large suction tool along lumbar spine, laeral trunk, chest. Patient highly compliant to HEP. Physical Therapy Plan Frequency and Duration Frequency of 20 Treatment Duration of 12 treatment (weeks) Plan of Care Start 11/15/24 Date Plan of Care End 02/15/25 Date Next Visit Focus/Plan Next Note Type Treatment Note Next Visit Plan Start deep tissue work, then MLD after deep soft tissue work
--- NOTE | 2024-12-27 16:35 | PT.OTN ---
Current Diagnoses Lymphedema, not elsewhere classified (12/27/24) Bilateral primary osteoarthritis of knee (12/27/24) Unequal limb length (acquired), unspecified site (12/27/24) Scoliosis, unspecified (12/27/24) Radiculopathy, lumbar region (12/27/24) Physical Therapy Treatment Note PT OP: Lymphedema Upper Extremity Start: 11/18/24 10:41 Freq: Status: Active Protocol: Document 12/27/24 13:00 SAK (Rec: 12/27/24 13:17 SAK Laptop) Out-Patient Physical Therapy Visit Information Visit Information Visit Type Treatment Note Visit Start Time 10:45 Visit Stop Time 12:15 Visit Number 5 OP-PT Subjective Patient Comments Patient Comments Feeling more mobile, though still significant tightness .Just started using Cpap with good tolerance. Therapeutic Exercises Supine Exercises T,Y,I,W stretch Equipment Used therapy ball 65 cm on yoga mat Reps/Minutes 60 sec Comments mod assist for safety on ball deep breathing Supine Exercise Name ant chest, lateral thorax, post thorax Side bilateral Resistance manual Reps/Minutes 5 min Comments verbal and tactile cues Sidelying Exercises lateral stretch Sidelying Exercise arm overhead Name Equipment Used Dycem Reps/Minutes 2x60 Comments with manual tissue stretch subaxillary open book Side bilateral Reps/Minutes 2x60 Comments verbal and tactile cues, manual stretching end range Manual Therapy Treatment Soft Tissue Mobilization inf ribs Mobilization Type Sustained Pressure Intensity/Depth Moderate Comments along inf ribcage with deep breathing subax,lat trunk Mobilization Type Instrument Assisted,Myofascial Release Intensity/Depth Moderate Body Position Sidelying Comments arm overhead, incorporate deep breathing, use of Dycem multiple angles with 90 sec holds chest, incision Mobilization Type Instrument Assisted,Myofascial Release Intensity/Depth Moderate Comments large suction tool Lymphedema Treatment Manual Lymphatic Drainage Location silvana UE's and chest Duration 14 Physical Therapy Assessment Goals Four Impairment lymphedema life impact scale44% Group Home Goal (LTG) Decrease lymphedema life impact scale to no greater than 20% as measure of improved self management and function. LTG Duration 02/15/25 Three Impairment Impaired posture and thoracic mobility restricting movement and breathing Rear Admiral Goal (LTG) Improve postural alignment thoracic mobility to WNL to allow patient to return to prior level of function including ability to breath deeply into chest. Patient to be independent and compliant with exercises for postural corection and thoracic mobility. LTG Duration 02/15/25 Two Impairment decreased scar mobility Rear Admiral Goal (LTG) Improve mastectomy scar moblity to WNL for improved brething and function LTG Duration 02/15/25 One Impairment lymphedema Short Term Goal (STG Review all aspects of lymphedema self care to include ) elevation, skin care, manual lymphatic drainage, lymphedema exercises, and appropriate compresssion STG Duration 12/16/24 Rear Admiral Goal (LTG) Patient to be independent and compliant with all aspects of lymphedema care as above and obtain appropriate compression garments for long-term management. LTG Duration 02/15/25 Progress Towards Goals Progress Towards Progressing Toward Goals Goals Assessment Summary Assessment Patient noted improved mobility and ease of breathing after treatment. Good tolerance for manual treatment with frequent request for more stretch. Increased emphasis sustained pressure treatment in aspect ribs silvana. Physical Therapy Plan Frequency and Duration Frequency of 20 Treatment Duration of 12 treatment (weeks) Plan of Care Start 11/15/24 Date Plan of Care End 02/15/25 Date Next Visit Focus/Plan Next Note Type Treatment Note Next Visit Plan Start deep tissue work, then MLD after deep soft tissue work
--- NOTE | 2025-01-03 16:39 | PT.OPPN ---
Current Diagnoses Lymphedema, not elsewhere classified (01/03/25) Bilateral primary osteoarthritis of knee (01/03/25) Unequal limb length (acquired), unspecified site (01/03/25) Scoliosis, unspecified (01/03/25) Radiculopathy, lumbar region (01/03/25) Physical Therapy Progress Note PT OP: Lymphedema Upper Extremity Start: 11/18/24 10:41 Freq: Status: Active Protocol: Document 01/03/25 13:00 SAK (Rec: 01/03/25 13:47 SAK Laptop) Out-Patient Physical Therapy Visit Information Visit Information Visit Type Treatment Note Visit Start Time 13:00 Visit Number 6 Precautions Precautions COLBERT, HTN Current Condition History of Current Condition Onset Date 20 yrs Current Complaints lymphedema chest, thorax, silvana UE's, tightness chest and ribcage/upper back History of Current 20 years ago had bilateral mastectomies followed by Condition chemo and radiation. States she developed lymphedema immediately. Had some treatment at that time, then lymphedema treatment again a few years ago. Has continued to wear custom silvana UE compression sleeves as well as compression shirt. Despite this she has difficulty managing her lymphedema and also reports tightness and decreased mobility throughout her chest and thorax, reporting she has difficulty taking deep breaths into her chest and feels very tight. Prior Treatments and As above Tests Future Testing and Having MRI of head today due to reported severe COLBERT Treatments Planned OP-PT Subjective Patient Comments Patient Comments Pt. reports she had last MFR appt, didn't feel helpful, not going to do further. States massage therapist recommended a machine for possible home use, can't remember name. Therapeutic Exercises Supine Exercises deep breathing Supine Exercise Name ant chest, lateral thorax, post thorax Side bilateral Resistance manual Reps/Minutes 5 min Comments verbal and tactile cues Prone Exercises T Reps/Minutes 10x Standing Exercises QL stretch Equipment Used door jam Reps/Minutes 2x30 lower trap Y Equipment Used wall Reps/Minutes 10x theraband Standing Exercise row, sh ext, sh ER Name Manual Therapy Treatment Consent Patient gave verbal Yes consent for manual treatment Soft Tissue Mobilization inf ribs Mobilization Type Sustained Pressure Intensity/Depth Moderate Comments along inf ribcage with deep breathing thoracic ext Mobilization Type Instrument Assisted Body Position Hooklying Comments pillows under head, mid thoracic spine with foam roller horizontal on spine subax,lat trunk Mobilization Type Instrument Assisted,Myofascial Release Intensity/Depth Moderate Body Position Sidelying Comments arm overhead, incorporate deep breathing, use of Dycem multiple angles with 90 sec holds chest, incision Mobilization Type Instrument Assisted,Myofascial Release Intensity/Depth Moderate Comments large suction tool Graston tool Lymphedema Treatment Manual Lymphatic Drainage Location silvana UE's and chest Duration 14 Physical Therapy Assessment Goals Four Impairment lymphedema life impact scale44% Home Care And Home Health Aides Teacher Goal (LTG) Decrease lymphedema life impact scale to no greater than 20% as measure of improved self management and function. LTG Duration 02/15/25 Three Impairment Impaired posture and thoracic mobility restricting movement and breathing Home Care And Home Health Aides Teacher Goal (LTG) Improve postural alignment thoracic mobility to WNL to allow patient to return to prior level of function including ability to breath deeply into chest. Patient to be independent and compliant with exercises for postural corection and thoracic mobility. LTG Duration 02/15/25 Two Impairment decreased scar mobility Retirement Goal (LTG) Improve mastectomy scar moblity to WNL for improved brething and function LTG Duration 02/15/25 One Impairment lymphedema Short Term Goal (STG Review all aspects of lymphedema self care to include ) elevation, skin care, manual lymphatic drainage, lymphedema exercises, and appropriate compresssion STG Duration 12/16/24 Home Care And Home Health Aides Teacher Goal (LTG) Patient to be independent and compliant with all aspects of lymphedema care as above and obtain appropriate compression garments for long-term management. LTG Duration 02/15/25 Assessment Summary Assessment Reports improved mobility chest after treatment today, inc emphasis posterior chain strengthening and trial Graston tool today with good antonia. Physical Therapy Plan Frequency and Duration Frequency of 20 Treatment Duration of 12 treatment (weeks) Plan of Care Start 11/15/24 Date Plan of Care End 02/15/25 Date Therapeutic Interventions Therapeutic Home Exercise Program,Joint Mobilizations,Lymphedema Interventions Management,Manual Therapy,Patient/Caregiver Education, Self-Care/Home Management,Soft Tissue Mobilization, Therapeutic Activities,Therapeutic Exercises Modalities Vasopneumatic Devices Next Visit Focus/Plan Next Note Type Treatment Note Next Visit Plan Start deep tissue work, then MLD after deep soft tissue work to facilitate lymphatic flow.
--- NOTE | 2025-01-06 16:04 | PT.OTN ---
Current Diagnoses Lymphedema, not elsewhere classified (01/06/25) Bilateral primary osteoarthritis of knee (01/06/25) Unequal limb length (acquired), unspecified site (01/06/25) Scoliosis, unspecified (01/06/25) Radiculopathy, lumbar region (01/06/25) Physical Therapy Treatment Note PT OP: Lymphedema Upper Extremity Start: 11/18/24 10:41 Freq: Status: Active Protocol: Document 01/06/25 14:30 SAK (Rec: 01/06/25 15:20 SAK Laptop) Out-Patient Physical Therapy Visit Information Visit Information Visit Type Treatment Note Visit Start Time 14:31 Visit Number 7 Number of DAIRY SCIENCE TEACHER Visits 0 Precautions Precautions COLBERT, HTN Current Condition History of Current Condition Onset Date 20 yrs Current Complaints lymphedema chest, thorax, silvana UE's, tightness chest and ribcage/upper back History of Current 20 years ago had bilateral mastectomies followed by Condition chemo and radiation. States she developed lymphedema immediately. Had some treatment at that time, then lymphedema treatment again a few years ago. Has continued to wear custom silvana UE compression sleeves as well as compression shirt. Despite this she has difficulty managing her lymphedema and also reports tightness and decreased mobility throughout her chest and thorax, reporting she has difficulty taking deep breaths into her chest and feels very tight. Had lymphoscintigraphy in 2016 when considering lymphedema surgery but reports they couldn't see my lymph system. Having difficulty getting compression sleeves to fit correctly and notices increase in lumpiness in her arms as a result. States feels very tight throughout chest and ribcage area, but felt compression shirt made the tightness worse. Prior Treatments and As above Tests Future Testing and Having MRI of head today due to reported severe COLBERT Treatments Planned OP-PT Subjective Patient Comments Patient Comments States Julia Parikh[facility] at [facility] hasn't been able to get compression garments right, went to talk with Sissy at [facility] to consider obtaining through her. Reports lumpiness in arms has gotten worse with poor fitting compression garments. Mild improvement with chest tightness with PT. Previoiusly not interested in lymphedema pumps but today reports would like to try due to continued difficulty with managing her lymphedema and soft tissue restrictions as well as increased firmness in soft tissue. Lymphedema Measurements Upper Extremity Circumference Measurements Right Affected MCP 20.9 cm Dorsum of Hand 21 cm Wrist 18.7 cm 5 cm From Wrist 19.4 cm Crease 10 cm From Wrist 25.2 cm Crease 15 cm From Wrist 28 cm Crease 20 cm From Wrist 28.8 cm Crease 25 cm From Wrist 29.5 cm Crease 30 cm From Wrist 31.8 cm Crease 35 cm From Wrist 33.4 cm Crease 40 cm From Wrist 36 cm Crease Elbow Joint 28.1 cm - subax 97.9 nipple line 96.3 Left Affected MCP 20.6 cm Dorsum of Hand 20.6 cm Wrist 18.4 cm 5 cm From Wrist 20.5 cm Crease 10 cm From Wrist 24.8 cm Crease 15 cm From Wrist 27.8 cm Crease 20 cm From Wrist 28.2 cm Crease 25 cm From Wrist 29.8 cm Crease 30 cm From Wrist 32.2 cm Crease 35 cm From Wrist 34.2 cm Crease 40 cm From Wrist 36.8 cm Crease Elbow Joint 28.9 cm Manual Therapy Treatment Soft Tissue Mobilization inf ribs Mobilization Type Instrument Assisted Intensity/Depth Moderate Comments along inf ribcage with deep breathing; Graston tool thoracic ext Mobilization Type Instrument Assisted Body Position Hooklying Comments pillows under head, mid thoracic spine with foam roller horizontal on spine; Graston tool subax,lat trunk Mobilization Type Instrument Assisted,Myofascial Release Intensity/Depth Moderate Body Position Sidelying Comments arm overhead, incorporate deep breathing, use of Dycem multiple angles with 90 sec holds, Graston tool Lymphedema Treatment Manual Lymphatic Drainage Location silvana UE's and chest Duration 30 Compression Pump Treatment Treatment Location Right Arm Pressure Amount ( 40 mmHg) (mmHG) Inflation Time ( 45 Seconds) Deflation Time ( 15 Seconds) Treatment Tolerance Good Treatment Comments arm+ garment Airos 6 did not tolerate 45; turned down to 40 noted decrease in circumferential measurements after pump Left Arm Pressure Amount ( 40 mmHg) (mmHG) Inflation Time ( 45 Seconds) Deflation Time ( 15 Seconds) Treatment Tolerance Good Treatment Comments did not tolerate pressure 45 Noted decrease in circumferential measurements after pump Physical Therapy Assessment Goals Four Impairment lymphedema life impact scale44% Group Home Goal (LTG) Decrease lymphedema life impact scale to no greater than 20% as measure of improved self management and function. LTG Duration 02/15/25 Three Impairment Impaired posture and thoracic mobility restricting movement and breathing Group Home Goal (LTG) Improve postural alignment thoracic mobility to WNL to allow patient to return to prior level of function including ability to breath deeply into chest. Patient to be independent and compliant with exercises for postural corection and thoracic mobility. LTG Duration 02/15/25 Two Impairment decreased scar mobility Access Manager Goal (LTG) Improve mastectomy scar moblity to WNL for improved brething and function LTG Duration 02/15/25 One Impairment lymphedema Short Term Goal (STG Review all aspects of lymphedema self care to include ) elevation, skin care, manual lymphatic drainage, lymphedema exercises, and appropriate compresssion STG Duration 12/16/24 Group Home Goal (LTG) Patient to be independent and compliant with all aspects of lymphedema care as above and obtain appropriate compression garments for long-term management. LTG Duration 02/15/25 Assessment Summary Assessment Patient started PT November 15. Despite more than 30 days of physical therapy including elevation, skin care, manual lymphatic drainage, lymphedema exercises and consisten wearing of compression she continues to have challenges with managing her lymphedema bilateral UE's, chest, and subaxillary area. 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 Feel she would benfit highly from use of a sequential pneumatic pump for home use as an adjunct to her self care. She is highly compliant to PT recomendations and highly motivated. She experienced decrease in circumferential measurements after trial of Airos 6 pump for 30 min in PT today. Physical Therapy Plan Frequency and Duration Frequency of 20 Treatment Duration of 12 treatment (weeks) Plan of Care Start 11/15/24 Date Plan of Care End 02/15/25 Date Therapeutic Interventions Therapeutic Home Exercise Program,Joint Mobilizations,Lymphedema Interventions Management,Manual Therapy,Patient/Caregiver Education, Self-Care/Home Management,Soft Tissue Mobilization, Therapeutic Activities,Therapeutic Exercises Modalities Vasopneumatic Devices Next Visit Focus/Plan Next Note Type Treatment Note Next Visit Plan Request seqeuential pneumatic pump. Continue CDT, manual techniques for soft tissue mobilization of thorax
--- NOTE | 2025-01-13 14:09 | PT.OTN ---
Current Diagnoses Lymphedema, not elsewhere classified (01/13/25) Bilateral primary osteoarthritis of knee (01/13/25) Unequal limb length (acquired), unspecified site (01/13/25) Scoliosis, unspecified (01/13/25) Radiculopathy, lumbar region (01/13/25) Physical Therapy Treatment Note PT OP: Lymphedema Upper Extremity Start: 11/18/24 10:41 Freq: Status: Active Protocol: Document 01/13/25 13:01 SAK (Rec: 01/13/25 13:58 SAK Laptop) Out-Patient Physical Therapy Visit Information Visit Information Visit Type Treatment Note Visit Start Time 13:00 Visit Stop Time 14:25 Visit Number 8 Number of TANK CLEANING SUPERVISOR Visits 0 Evaluation Information Evaluation Date 11/15/24 Precautions Precautions COLBERT, HTN OP-PT Subjective Patient Comments Patient Comments Went to see Daniela Elroy and had PMF treatment to back and front of trunk, was able to get a little more stretch. Also did full body lymphatic squeeze. Continues to feel bound up internally. When she does stretching Lymphedema Measurements Upper Extremity Circumference Measurements Right Affected MCP 20.9 cm Dorsum of Hand 21 cm Wrist 18.7 cm 5 cm From Wrist 19.4 cm Crease 10 cm From Wrist 25.2 cm Crease 15 cm From Wrist 28 cm Crease 20 cm From Wrist 28.8 cm Crease 25 cm From Wrist 29.5 cm Crease 30 cm From Wrist 31.8 cm Crease 35 cm From Wrist 33.4 cm Crease 40 cm From Wrist 36 cm Crease Elbow Joint 28.1 cm - subax 97.9 nipple line 96.3 Left Affected MCP 20.6 cm Dorsum of Hand 20.6 cm Wrist 18.4 cm 5 cm From Wrist 20.5 cm Crease 10 cm From Wrist 24.8 cm Crease 15 cm From Wrist 27.8 cm Crease 20 cm From Wrist 28.2 cm Crease 25 cm From Wrist 29.8 cm Crease 30 cm From Wrist 32.2 cm Crease 35 cm From Wrist 34.2 cm Crease 40 cm From Wrist 36.8 cm Crease Elbow Joint 28.9 cm Therapeutic Exercises Supine Exercises deep breathing Supine Exercise Name ant chest, lateral thorax, post thorax Side bilateral Resistance manual Reps/Minutes 5 min Comments verbal and tactile cues Lymphedema Treatment Manual Lymphatic Drainage Location silvana UE's and chest Duration 30 Lymphedema Wrapping Materials Patient wearing compression sleeves Compression Pump Treatment Treatment Location Right Arm Pressure Amount ( 55 mmHg) (mmHG) Inflation Time ( 45 Seconds) Deflation Time ( 15 Seconds) Treatment Tolerance Good Treatment Comments arm+ garment Airos 6 did not tolerate 45; turned down to 40 noted decrease in circumferential measurements after pump Left Arm Pressure Amount ( 55 mmHg) (mmHG) Inflation Time ( 45 Seconds) Deflation Time ( 15 Seconds) Treatment Tolerance Good Treatment Comments did not tolerate pressure 45 Noted decrease in circumferential measurements after pump Physical Therapy Assessment Goals Four Impairment lymphedema life impact scale44% Box Tender Goal (LTG) Decrease lymphedema life impact scale to no greater than 20% as measure of improved self management and function. LTG Duration 02/15/25 Three Impairment Impaired posture and thoracic mobility restricting movement and breathing Box Tender Goal (LTG) Improve postural alignment thoracic mobility to WNL to allow patient to return to prior level of function including ability to breath deeply into chest. Patient to be independent and compliant with exercises for postural corection and thoracic mobility. LTG Duration 02/15/25 Two Impairment decreased scar mobility Box Tender Goal (LTG) Improve mastectomy scar moblity to WNL for improved brething and function LTG Duration 02/15/25 One Impairment lymphedema Short Term Goal (STG Review all aspects of lymphedema self care to include ) elevation, skin care, manual lymphatic drainage, lymphedema exercises, and appropriate compresssion STG Duration 12/16/24 Senior Care Goal (LTG) Patient to be independent and compliant with all aspects of lymphedema care as above and obtain appropriate compression garments for long-term management. LTG Duration 02/15/25 Assessment Summary Assessment Patient requested further pump trial with higher pressure. Good tolerance for increase to 55 mm Hg with Airos 6 pump today. Is also seeking out some alternative therapies. Physical Therapy Plan Frequency and Duration Frequency of 20 Treatment Duration of 12 treatment (weeks) Plan of Care Start 11/15/24 Date Plan of Care End 02/15/25 Date Therapeutic Interventions Therapeutic Home Exercise Program,Joint Mobilizations,Lymphedema Interventions Management,Manual Therapy,Patient/Caregiver Education, Self-Care/Home Management,Soft Tissue Mobilization, Therapeutic Activities,Therapeutic Exercises Modalities Vasopneumatic Devices Next Visit Focus/Plan Next Note Type Treatment Note Next Visit Plan Continue CDT, manual techniques for soft tissue mobilization of thorax. Train in use of pump if approved.
--- NOTE | 2025-02-03 15:15 | PT.OTN ---
Current Diagnoses Lymphedema, not elsewhere classified (02/03/25) Bilateral primary osteoarthritis of knee (02/03/25) Unequal limb length (acquired), unspecified site (02/03/25) Scoliosis, unspecified (02/03/25) Radiculopathy, lumbar region (02/03/25) Physical Therapy Treatment Note PT OP: Lymphedema Upper Extremity Start: 11/18/24 10:41 Freq: Status: Active Protocol: Document 02/03/25 14:32 SAK (Rec: 02/03/25 15:15 SAK Laptop) Out-Patient Physical Therapy Visit Information Visit Information Visit Type Treatment Note Visit Start Time 14:32 Visit Stop Time 15:10 Visit Number 9 Number of WELCOME DESK AGENT Visits 0 Precautions Precautions COLBERT, HTN Current Condition History of Current Condition Onset Date 20 yrs Current Complaints lymphedema chest, thorax, silvana UE's, tightness chest and ribcage/upper back History of Current 20 years ago had bilateral mastectomies followed by Condition chemo and radiation. States she developed lymphedema immediately. Had some treatment at that time, then lymphedema treatment again a few years ago. Has continued to wear custom silvana UE compression sleeves as well as compression shirt. Despite this she has difficulty managing her lymphedema and also reports tightness and decreased mobility throughout her chest and thorax, reporting she has difficulty taking deep breaths into her chest and feels very tight. Had lymphoscintigraphy in 2016 when considering lymphedema surgery but reports they couldn't see my lymph system. Having difficulty getting compression sleeves to fit correctly and notices increase in lumpiness in her arms as a result. States feels very tight throughout chest and ribcage area, but felt compression shirt made the tightness worse. Prior Treatments and As above Tests Future Testing and Having MRI of head today due to reported severe COLBERT Treatments Planned Lymphedema Treatment Other Other Instructed in set up and use of Airos 8 sequential pneumatic pump with ArmPlus Right and Arm Left including donning and doffing, and problem-solving turning off and on and removing sleeves if doing both at the same time. Patient demonstrated good understanding and unit was issued to her. Physical Therapy Assessment Goals Four Impairment lymphedema life impact scale44% Penitentiary Goal (LTG) Decrease lymphedema life impact scale to no greater than 20% as measure of improved self management and function. LTG Duration 02/15/25 Three Impairment Impaired posture and thoracic mobility restricting movement and breathing Steel Estimator Goal (LTG) Improve postural alignment thoracic mobility to WNL to allow patient to return to prior level of function including ability to breath deeply into chest. Patient to be independent and compliant with exercises for postural corection and thoracic mobility. LTG Duration 02/15/25 Two Impairment decreased scar mobility Penitentiary Goal (LTG) Improve mastectomy scar moblity to WNL for improved brething and function LTG Duration 02/15/25 One Impairment lymphedema Short Term Goal (STG Review all aspects of lymphedema self care to include ) elevation, skin care, manual lymphatic drainage, lymphedema exercises, and appropriate compresssion STG Duration 12/16/24 Penitentiary Goal (LTG) Patient to be independent and compliant with all aspects of lymphedema care as above and obtain appropriate compression garments for long-term management. LTG Duration 02/15/25 Assessment Summary Assessment Instructed in set up and use of Airos 8 sequential pneumatic pump with ArmPlus Right and Arm Left including donning and doffing, and problem-solving turning off and on and removing sleeves if doing both at the same time. Patient demonstrated good understanding and unit was issued to her. Physical Therapy Plan Frequency and Duration Frequency of 20 Treatment Duration of 12 treatment (weeks) Plan of Care Start 11/15/24 Date Plan of Care End 02/15/25 Date Therapeutic Interventions Therapeutic Home Exercise Program,Joint Mobilizations,Lymphedema Interventions Management,Manual Therapy,Patient/Caregiver Education, Self-Care/Home Management,Soft Tissue Mobilization, Therapeutic Activities,Therapeutic Exercises Modalities Vasopneumatic Devices Next Visit Focus/Plan Next Note Type Treatment Note Next Visit Plan Patient to check insurance coverage and continue PT if able. Will let PT know.
--- NOTE | 2025-03-22 15:11 | PT.OPDS ---
Current Diagnoses Lymphedema, not elsewhere classified (02/03/25) Bilateral primary osteoarthritis of knee (02/03/25) Unequal limb length (acquired), unspecified site (02/03/25) Scoliosis, unspecified (02/03/25) Radiculopathy, lumbar region (02/03/25) Visit Care Team Role Provider Type Renata Mtz DO Attending Provider Physician Family Provider Primary Care Provider Referring Provider Specialty: [facility] Practice Address: [address] [place] [address], [address], [facility] Email: [email or web address] Visit Number Visit Number 9 Discharge Summary PT OP: Lymphedema Upper Extremity Start: 11/18/24 10:41 Freq: Status: Active Protocol: Document 03/22/25 15:10 SAK (Rec: 03/22/25 15:11 SAK Laptop) Out-Patient Physical Therapy Visit Information Visit Information Visit Type Discharge Summary Physical Therapy Assessment Assessment Summary Assessment Patient has not gotten back to PT, has not been seen for 46 days. Will need new prescription if wants to return to PT. Physical Therapy Plan Discharge Physical Therapy Discharge Reasons No Longer Attending PT
== END 2025-03-23 09:27 | disposition home or self-care (01) ==
LOC: PHYS 14:30
PROVIDERS: Family Provider Family Medicine; PCP Family Medicine; Referring Provider Family Medicine; Visit Provider Family Medicine
DX: I89.0 Lymphedema, not elsewhere classified (principal); M17.0 Bilateral primary osteoarthritis of knee; M54.16 Radiculopathy, lumbar region; M41.9 Scoliosis, unspecified; M21.70 Unequal limb length (acquired), unspecified site
CPT/HCPCS: 97016; 97110; 97140; 97162; 97535